=== PATIENT | female | born 1970 | race Caucasian/White ===

== ENCOUNTER 2021-06-13 18:12 | Emergency (ER) | payer OTHER, SELFPAY ==
--- NOTE | ~2021-06-13 | XR_ITS ---
XR foot RT min 3V 06/13/2021 19:02 Indication: Right foot pain after injury Procedure: 4 views right foot Comparison: No prior studies for comparison. Findings: There is an avulsion fracture of the calcaneus laterally. Mild soft tissue swelling. No oth er fracture is identified. Lisfranc joint intact. Impression: 1: Avulsion fracture distal lateral margin of the calcaneus. Reviewed, dictated and finalized at location A. Impression: 1: Avulsion fracture distal lateral margin of the calcaneus.
--- NOTE | ~2021-06-13 | XR_ITS ---
XR knee LT 3V 06/13/2021 19:02 INDICATION: Left ankle pain PROCEDURE: 5 views left ankle COMPARISON: No prior studies for comparison. FINDINGS: Fracture, dislocation or subluxation is not identified. There is moderate soft tissue swell ing lateral to the knee. No foreign bodies are identified. IMPRESSION: 1: No acute fracture. Reviewed, dictated and finalized at location A. IMPRESSION: 1: No acute fracture.
[2021-06-13 18:20] VITALS: BP 140/100; PULSE 102; RESP 20; TEMP 36.6; O2SAT 98
--- NOTE | 2021-06-13 18:31 | ED.LOWEXIN ---
HPI - Extremity Injury (Lower) General Chief Complaint: Extremity Injury, Lower Stated Complaint: Injuries from fall Time Seen by Provider: 06/13/21 18:32 Source: patient and RN notes reviewed Mode of arrival: ambulatory Limitations: no limitations History of Present Illness HPI Narrative: 51-year-old female presents with concern for right foot pain, left knee pain after she fell last night. Reports she rolled her ankle in a ditch, landing on her left knee. Reports abrasions to bilateral knees. Reports she is taken extra strength Tylenol and tramadol for pain that helps a small amount. She reports foot pain at rest, worsening pain with weightbearing. Reports little to no knee pain at rest, increasing pain with weightbearing. Denies erythema, warmth in the knee or ankle. Related Data Home Medications Medication Instructions Recorded Confirmed cevimeline 06/13/21 cholecalciferol (vitamin D3) 1,250 mcg PO DAILY 06/13/21 06/13/21 cyclobenzaprine 10 mg PO 06/13/21 dicyclomine 20 mg PO BID 06/13/21 06/13/21 famotidine 40 mg PO DAILY 06/13/21 06/13/21 ferrous sulfate [FeroSul] 325 mg PO DAILY 06/13/21 06/13/21 levothyroxine 06/13/21 oxybutynin chloride 06/13/21 pilocarpine HCl mg 06/13/21 pravastatin 06/13/21 sertraline mg 06/13/21 tramadol mg 06/13/21 Allergies Allergy/AdvReac Type Severity Reaction Status Date / Time adalimumab [From Humira] Allergy Hives Verified 06/13/21 18:43 clarithromycin Allergy Other Verified 06/13/21 18:43 clindamycin Allergy Other Verified 06/13/21 18:43 hydroxychloroquine Allergy Rash Verified 06/13/21 18:46 ibuprofen Allergy Unknown Verified 06/13/21 19:17 infliximab [From Remicade] Allergy Anaphylaxis Verified 06/13/21 18:46 levofloxacin Allergy Rash Verified 06/13/21 18:46 Sulfa (Sulfonamide Allergy Other Verified 06/13/21 18:46 Antibiotics) Review of Systems Review of Systems: CONSTITUTIONAL: Denies malaise, chills, sweats, or fever. CARDIOVASCULAR: Denies chest pain, palpitations, or edema. SKIN: Reports anterior knee abrasions MUSCULOSKELETAL: Reports right ankle pain, left knee swelling NEUROLOGIC: Denies numbness, weakness All systems reviewed & are unremarkable except as noted in HPI and below PMFSH Comments At time of signature, agree with nursing past medical, surgical, social and family history. There is no relevant family history pertinent to the presenting complaint Exam Narrative: GENERAL: Well-appearing, well-nourished, and in no acute distress. HEAD: Normocephalic, atraumatic. EYES: PERRLA, conjunctivae clear NECK: Supple. CHEST: Speaks in full sentences. No respiratory distress. HEART: Regular rate and rhythm. Normal and equal peripheral pulses. EXTREMITIES: Right foot has normal strength and sensation, limited range of motion. Mild edema, no erythema, warmth, ecchymosis. 5/5 strength with ankle and digit flexion and extension. Normal sensation with sensitivity to light touch and pain. Bilateral anterior tenderness. No open wounds, no skin tenting, no devitalized tissue or atrophy, no trophic changes, no obvious deformity, alignment normal, nearby joints and structures intact. Distal pulses palpable and equal bilaterally, skin warm, dry, pink. Capillary refill less than 3 seconds. Left knee has normal sensation, limited range of motion. Mild edema, no erythema, warmth, ecchymosis. 5/5 strength with knee flexion and extension. Normal sensation with sensitivity to light touch and pain. Anterior tenderness. No skin tenting, no devitalized tissue or atrophy, no trophic changes, no obvious deformity, alignment normal, nearby joints and structures intact. Distal pulses palpable and equal bilaterally, skin warm, dry, pink. Capillary refill less than 3 seconds. SKIN: Warm, dry, no rash. Scabbed abrasions noted to bilateral anterior knees without surrounding erythema, edema, induration NEURO: Alert and oriented x3. PSYCH: Normal mood and affect Course Cou
== END 2021-06-13 20:08 | disposition home or self-care (01) ==
PROVIDERS: Emergency Provider Nurse Practitioner; PCP Internal Medicine
DX: S92.034A Nondisplaced avulsion fracture of tuberosity of right calcaneus, initial encounter for closed fracture (principal); S80.212A Abrasion, left knee, initial encounter; S80.211A Abrasion, right knee, initial encounter; Z79.891 Long term (current) use of opiate analgesic; W19.XXXA Unspecified fall, initial encounter
CPT/HCPCS: 29515; 73562; 73630; 99214; G0463

== ENCOUNTER 2021-10-21 17:59 | Emergency (ER) | payer OTHER, SELFPAY ==
[2021-10-21 18:08] VITALS: BP 150/92; PULSE 98; RESP 18; TEMP 36.9; O2SAT 98
--- NOTE | 2021-10-21 18:18 | ED.ANIMALBIT ---
HPI - Animal Bite General Chief Complaint: Wound/Laceration Stated Complaint: Dog bite on left cheek Time Seen by Provider: 10/21/21 18:18 Source: patient Mode of arrival: ambulatory Limitations: no limitations History of Present Illness HPI narrative: Patient bitten on her left cheek by her dog yesterday afternoon.Patient repots that her dog is fully vaccinated and she has been cleansing the area with soap and water. MD complaint: animal bite Onset (ago): day(s) Animal: dog Description of animal: household pet and immunizations UTD Mechanism: bite and scratch Location: face Context: playing with animal Associated symptoms: none Related Data Home Medications Medication Instructions Recorded Confirmed cevimeline 30 mg PO DAILY 06/13/21 10/21/21 cholecalciferol (vitamin D3) 1,250 mcg PO DAILY 06/13/21 10/21/21 cyclobenzaprine 10 mg PO HS PRN 06/13/21 10/21/21 dicyclomine 20 mg PO BID 06/13/21 10/21/21 famotidine 40 mg PO DAILY 06/13/21 10/21/21 ferrous sulfate [FeroSul] 325 mg PO DAILY 06/13/21 10/21/21 levothyroxine 175 mcg PO DAILY 06/13/21 10/21/21 oxybutynin chloride 5 mg PO BID 06/13/21 10/21/21 pilocarpine HCl 7.5 mg PO DAILY 06/13/21 10/21/21 pravastatin 20 mg PO DAILY 06/13/21 10/21/21 sertraline 100 mg PO DAILY 06/13/21 10/21/21 tramadol 50 mg PO Q6-8H PRN 06/13/21 10/21/21 abatacept [Orencia] 250 mg SUBCUT WEEKLY 10/21/21 10/21/21 Allergies Allergy/AdvReac Type Severity Reaction Status Date / Time adalimumab [From Humira] Allergy Hives Verified 10/21/21 18:27 clarithromycin Allergy Other Verified 10/21/21 18:27 clindamycin Allergy Other Verified 10/21/21 18:27 hydroxychloroquine Allergy Rash Verified 10/21/21 18:27 ibuprofen Allergy Unknown Verified 10/21/21 18:27 infliximab [From Remicade] Allergy Anaphylaxis Verified 10/21/21 18:27 levofloxacin Allergy Rash Verified 10/21/21 18:27 Sulfa (Sulfonamide Allergy Other Verified 10/21/21 18:27 Antibiotics) Review of Systems Review of Systems: CONSTITUTIONAL: Denies fever, chills, or sweats. EYES: Denies visual changes, redness, or discharge. ENT: Denies rhinorrhea, congestion, sore throat, or otalgia. CARDIOVASCULAR: Denies chest pain, palpitations, or edema. RESPIRATORY: Denies cough or dyspnea. GASTROINTESTINAL: Denies abdominal pain, nausea, vomiting, or diarrhea. GENITOURINARY: Denies dysuria or hematuria. SKIN: Denies rash or itching. dog bite to left cheek MUSCULOSKELETAL: Denies back pain, joint pain, or myalgia. NEUROLOGIC: Denies headache, numbness, or weakness. PSYCHIATRIC: Denies anxiety or depression. Allergic/Immunologic: Comments: At time of signature, agree with nursing past medical, surgical, social and family history. There is no relevant family history pertinent to the presenting complaint Exam Narrative: GENERAL: Well-appearing, well-nourished, and in no acute distress. HEAD: Normocephalic, atraumatic. EYES: PERRLA and EOMI. ENT: Nares clear, no rhinorrhea or epistaxis. Mucous membranes moist. NECK: Supple. CHEST: Clear to auscultation. No respiratory distress. HEART: Regular rate and rhythm. No murmur heard. Normal peripheral pulses. ABDOMEN: Soft, nontender, nondistended, normal active bowel sounds. EXTREMITIES: Normal range of motion. No edema. SKIN: Warm, dry, no rash. 2 superficial puncture wounds to left cheek no drainage no redness not tender to touch NEURO: No focal deficits. Alert and oriented x3. [place] Coma Scale Eye Opening: Spontaneous 4 [place] Coma Scale Motor: Obeys Commands 6 [place] Coma Scale Verbal: Oriented 5 [place] Coma Scale Total 15 Course Course Level of Care: Express Care Visit Vital Signs Vital signs: Discussed with patient transfer for plastic surgery referral. Patient declined referral to plastic surgery states would like placed on antibiotic and will follow-up with primary care provider as needed critical dx considered and discussed with pt. Educated patient on red flag s/s and to go to ED i
== END 2021-10-21 18:40 | disposition home or self-care (01) ==
PROVIDERS: Emergency Provider Nurse Practitioner Family; PCP Internal Medicine
DX: S01.432A Puncture wound without foreign body of left cheek and temporomandibular area, initial encounter (principal); W54.0XXA Bitten by dog, initial encounter; E78.00 Pure hypercholesterolemia, unspecified; I10 Essential (primary) hypertension; K21.9 Gastro-esophageal reflux disease without esophagitis; M06.9 Rheumatoid arthritis, unspecified; E11.9 Type 2 diabetes mellitus without complications; E03.9 Hypothyroidism, unspecified; M35.00 Sjogren syndrome, unspecified; F32.9 Major depressive disorder, single episode, unspecified
CPT/HCPCS: 99213; G0463

== ENCOUNTER 2022-01-26 13:08 | Emergency (ER) | payer OTHER, SELFPAY ==
--- NOTE | 2022-01-26 13:17 | ED.URI ---
HPI - URI/Sore Throat General Chief Complaint: Upper Respiratory Infection Stated Complaint: upper resperatory Time Seen by Provider: 01/26/22 13:25 Source: patient and RN notes reviewed Mode of arrival: ambulatory Limitations: no limitations History of Present Illness HPI Narrative: 51-year-old female with history of diabetes presents with concern for cough, sore throat. She denies any [id number] intervention. She reports persistent cough. Denies nasal congestion, rhinorrhea, fever, body aches, chills, sweats. She reports her temperature was 98.9 at the highest. MD elicited complaint: cough and sore throat Related Data Home Medications Medication Instructions Recorded Confirmed cevimeline 30 mg PO DAILY 06/13/21 01/26/22 cholecalciferol (vitamin D3) 1,250 mcg PO DAILY 06/13/21 01/26/22 cyclobenzaprine 10 mg PO HS PRN 06/13/21 01/26/22 dicyclomine 20 mg PO BID 06/13/21 01/26/22 famotidine 40 mg PO DAILY 06/13/21 01/26/22 ferrous sulfate [FeroSul] 325 mg PO DAILY 06/13/21 01/26/22 levothyroxine 175 mcg PO DAILY 06/13/21 01/26/22 oxybutynin chloride 5 mg PO BID 06/13/21 01/26/22 pilocarpine HCl 7.5 mg PO DAILY 06/13/21 01/26/22 pravastatin 20 mg PO DAILY 06/13/21 01/26/22 sertraline 100 mg PO DAILY 06/13/21 01/26/22 tramadol 50 mg PO Q6-8H PRN 06/13/21 01/26/22 abatacept [Orencia] 250 mg SUBCUT WEEKLY 10/21/21 01/26/22 prednisone 2.5 mg PO TID 01/26/22 01/26/22 Allergies Allergy/AdvReac Type Severity Reaction Status Date / Time adalimumab [From Humira] Allergy Hives Verified 01/26/22 13:27 clarithromycin Allergy Other Verified 01/26/22 13:27 clindamycin Allergy Other Verified 01/26/22 13:27 hydroxychloroquine Allergy Rash Verified 01/26/22 13:27 ibuprofen Allergy Unknown Verified 01/26/22 13:27 infliximab [From Remicade] Allergy Anaphylaxis Verified 01/26/22 13:27 levofloxacin Allergy Rash Verified 01/26/22 13:27 Sulfa (Sulfonamide Allergy Other Verified 01/26/22 13:27 Antibiotics) Review of Systems Review of Systems: CONSTITUTIONAL: Denies malaise, chills, sweats, or fever. Reports fatigue EYES: Denies visual changes, redness, or discharge. ENT: Denies rhinorrhea, congestion, sinus pain, otalgia. Reports sore throat. CARDIOVASCULAR: Denies chest pain, palpitations, or edema. RESPIRATORY: Reports cough. Denies dyspnea. GASTROINTESTINAL: Denies abdominal pain, nausea, vomiting, diarrhea SKIN: Denies rash or itching. MUSCULOSKELETAL: Denies myalgia. NEUROLOGIC: Denies headache. All systems reviewed & are unremarkable except as noted in HPI and below PMFSH Comments At time of signature, agree with nursing past medical, surgical, social and family history. There is no relevant family history pertinent to the presenting complaint Exam Narrative: GENERAL: Well-appearing, well-nourished, and in no acute distress. HEAD: Normocephalic EYES: PERRLA, conjunctivae clear ENT: Nares clear, clear discharge. Mucous membranes moist. TM pearly epps with sharp light reflex bilaterally; no tragal tenderness. Oropharynx erythematous without lesions. Tonsils not enlarged and without exudate, no drooling, no hoarseness, no trismus, uvula midline. NECK: Supple. No lymphadenopathy CHEST: Scattered wheeze throughout, otherwise clear to auscultation, breath sounds equal. No rhonchi, rales, or stridor. No respiratory distress, speaks in full sentences. Cough noted HEART: Regular rate and rhythm. No murmur heard. SKIN: Warm, dry, no rash. NEURO: Alert and oriented x3. PSYCH: Normal mood and affect Course Course Emergency Course: Patient is aware of diagnosis, understands and agrees to treatment plan. Anticipatory guidance given. Patient agrees to follow-up as directed and is aware of reasons to seek care at the emergency department. Portions of this record may have been created with voice recognition software Level of Care: Express Care Visit Vital Signs Vital signs: Reviewed. MDM - URI/Sore Throat MDM Narrative Med
[2022-01-26 13:20] VITALS: BP 145/80; PULSE 108; RESP 16; TEMP 36.4; O2SAT 100
== END 2022-01-26 13:46 | disposition home or self-care (01) ==
PROVIDERS: Emergency Provider Nurse Practitioner; PCP Internal Medicine
DX: J40 Bronchitis, not specified as acute or chronic (principal); E78.00 Pure hypercholesterolemia, unspecified; I10 Essential (primary) hypertension; K21.9 Gastro-esophageal reflux disease without esophagitis; M06.9 Rheumatoid arthritis, unspecified; E11.9 Type 2 diabetes mellitus without complications; E03.9 Hypothyroidism, unspecified; M35.00 Sjogren syndrome, unspecified; F32.A Depression, unspecified
CPT/HCPCS: 87804; 99213; G0463

== ENCOUNTER 2024-10-25 18:11 | Emergency (ER) | payer OTHER, SELFPAY ==
--- NOTE | ~2024-10-25 | XR_ITS ---
CHEST RADIOGRAPH, PA AND LATERAL CLINICAL HISTORY: bronchitis 2 weeks ago, COUGH, GEN CHEST/BACK PAIN . COMPARISON: None available TECHNIQUE: PA and lateral views of the chest. FINDINGS The cardiomediastinal silhouette is unremarkable. The lungs are clear. Visualized osseous structures and soft tissues are unremarkable. IMPRESSION: No focal infiltrate or effusion. Reviewed, dictated and finalized at location A. [employer]
--- OUTSIDE RECORDS SUMMARY | 2024-10-25 18:15 | XMS_ITS ---
Author Organization [facility] mirna Address [address] [address] [place] [address] Care Team Providers Care Hood Fitter Name Role Phone Zuhair Castrejon MD Primary Care Provider Lisset Longoria Unavailable [phone] Lisset Carty MD Unavailable Unavailable Allergies Allergen (clinical drug ingredient) Drug/Non Drug Allergy documented on EMR Reaction Allergy Type Onset Date Status aspirin Aspirin Unknown Drug Allergy 03/04/2018 Active clarithromycin Clarithromycin Unknown Drug Allergy 018 Active Humira Unknown Drug Allergy 07/03/2019 Active ibuprofen Ibuprofen Unknown Drug Allergy 03/04/2018 Active Levaquin Unknown Drug Allergy 03/04/2018 Active hydroxychloroquine Plaquenil Unknown Drug Allergy 03/04/20 18 Active infliximab Remicade Unknown Drug Allergy 03/26/2020 Activ e clindamycin Clindamycin Unknown Drug Allergy 03/04/2018 Ac tive REASON FOR VISIT infusion pt, RA, SS, lupus, PCP Zuhair Castrejon MD Medications Medication SIG (Take, Route, Frequency, Duration) Notes Start Date End Date Status traMADol HCl 50 MG 1 Orally every 6 hrs for 30 days 08/14/2024 09/13/2024 Active predniSONE 2.5 MG TAKE 3 TABLETS(7.5 MG) BY MOUTH DAILY for 30 Active Vitamin D (Ergocalciferol) 1.25 MG (89474 UT) TAKE 1 CAPSULE BY MOUTH WEEKLY for 28 Active Sertraline HCl 100 MG TAKE 1 TABLET(100 MG) BY MOUTH EVERY DAY for 30 Active Lisinopril 20 MG TAKE 2 TABLETS(40 MG) BY MOUTH ONCE DAILY for 90 Active Pilocarpine HCl 7.5 MG 1 Three times a day for 90 days Active Cevimeline HCl 30 MG 1 capsule Orally Three times a day for 30 days 01/30/2024 Active Cyclobenzaprine HCl 10 MG 1 Oral Once a day for 30 days Active Famotidine 40 MG take 1 tablet (40 mg) by oral route once daily at bedtime Oral 1 Active CEVIMELINE 30MG CAPSULES 30 mg TAKE 1 CAPSULE(30 MG) BY MOUTH THREE TIMES DAILY *Reorder from [employer] for eRx and Interaction Alerts* 04/21/2023 Active metFORMIN HCl 1000 MG take 1 tablet (1,000 mg) by oral route 2 times per day with morning and evening meals Oral 2 Active Orencia - monthly - *Pick strength-form from [employer] for eRX* Active Nurtec 75 MG prn Oral Active Vitamin D3 1000 UNIT take 1 tablet weekly Oral Active Dicyclomine HCl 20 MG take 1 tablet (20 mg) by oral route 3 times per day Oral 3 Active Phentermine HCl 37.5 MG take 1 tablet (37.5 mg) by oral route once daily before breakfast Oral 1 Active FERROUS SULFATE 325MG (5GR) TABS 325 mg (65 mg iron) TAKE 1 TABLET(325 MG) BY MOUTH TWICE DAILY *Reorder from [employer] for eRx and Interaction Alerts* 06/09/2023 Active Emgality 120 MG/ML inject 1 milliliter (120 mg) by subcutaneous route once a month in the abdomen, thigh, outer upper arm, or buttocks Subcutaneous Active Levothyroxine Sodium 200 MCG take 1 tablet (200 mcg) by oral route once daily Oral 1 Active Levothyroxine Sodium 25 MCG take 1 tablet (25 mcg) by oral route once daily Oral 1 Active ZyrTEC Allergy 10 MG take 1 capsule by oral route once Oral 1 Active Problems Problem Type SNOMED Code ICD Code Onset Dates Problem Status W/U Status Risk Notes Problem Primary Sjogren's syndrome (196972073) Primary Sjogren's syndrome (M35.00) Active confirmed Problem Lupus (422995512) Lupus (M32.9) Active confirmed Encounters Encounter Location Date Provider Diagnosis [facility] [address] [facility] [place] [address] 08/26/2024 Lisset Du Other rheumatoid arthritis with rheumatoid factor of multiple sites M05.89 ; Primary Sjogren's syndrome M35.00 ; Lupus M32.9 ; High risk medication use Z79.899 and Screening for osteoporosis Z13.820 Assessments Encounter Date Diagnosis (ICD Code) Assessment Notes Treatment Notes Treatment Clinical Notes Section Notes 08/26/2024 Other rheumatoid arthritis with rheumatoid factor of multiple sites (ICD-10 - M05.89) mildly symptomatic, , orencia helping, will continue, decrease prednisone to 5mg/day after today's ionfusion 08/26/2024 Primary Sjogren's syndrome (ICD-10 - M35.00) mildly symptomatic, , orencia helping, will continue, decrease prednisone to 5mg/day after today's ionfusion 08/26/2024 Lupus (ICD-10 - M32.9) mildly symptomatic, , orencia helping, will continue, decrease prednisone to 5mg/day after today's ionfusion 08/26/2024 High risk medication use (ICD-10 - Z79.899) mildly symptomatic, , orencia helping, will continue, decrease prednisone to 5mg/day after today's ionfusion 08/26/2024 Screening for osteoporosis (ICD-10 - Z13.820) mildly symptomatic, , orencia helping, will continue, decrease prednisone to 5mg/day after today's ionfusion Plan Of Treatment Next Appt Details Provider Name:Lisset Carty, 10/29 08:00:00 AM, [address] [facility], [address], [address], Progress Notes * Jerri PEÑA ADOB:[birth year] (54 yo F)Acc No.[id number]:08/26/2024 Progress Notes Patient:?CHEMO Jerri A Provider:?LISSET CARTY MD :1970???Age:54 Y???Sex:Female D ate:08/26/2024 Address:[address] [place], [place] [id number] Pcp:Zuhair Castrejon MD Subjective: * Chief Complaints: * ???Infusion ptRA, SS, lupusP CP Zuhair Castrejon MD * HPI: ???General Follow up:? Sjogren's disease/RA: on orencia infusion, on prednisone 7.5mg/day, orencia helping and lasts for about 3 weeks, fingers, ankles and toes ache today, no joint swelling, am stiffness: a few minutes, does not like tylenol with codeine, too strong allergic to remicade, allergic to plaquenil, cannot prescribe MTX, imuran, arava, etc due to leukopenia and elevated liver enzymes, allergic to aspirin and ibuprofen, developed allergic reaction after 2nd humira injection in May 2019. uses artificial tears/gel, failed salagen, on evoxac, on amitriptyline for headaches? skin biopsy did not show lupus. hip MRIs: moderate to severe arthritic changes with synovitis and chondrosis, labral tear and cysts, herminio hip dysplasia, saw Dr. Ward, s/p R hip replacement RF 43, CCP (-), CRP 27.23, ESR 52, BRENDA >1:1280 (SSA/Ro), SSA 133, SSB 62, WBC 2.6, ALC 0.5, lupus anti-coagulant positive x 3, +dry eyes and dry mouth ROS: no oral ulcers, +malar flush, no photosensitivity, +dry eyes and dry mouth, no Raynaud's, no hair loss. * ROS:?General / Constitutional:?Patient denies?fevers, chills.?Patient complains of?fatigue.?Musculoskeletal:?Patient complains of?see HPI.?Skin:?Patient denies?rash.? * Medical History:? * Surgical History:? * Hospitalization/Major Diagno stic Procedure:? * Social History:?Migrated Social History:?Migrated Social History: :: 3 Children , Exercise :: Active but no formal exercise , Marital Status :: , Occupation :: employed :: note : - [employer] 07/22/2018 , Substance Use :: Alcohol :: Never :: note : Use status used: Never , Substance Use :: Tobacco :: Former :: note : quit 1999. * Medications:?TakingZyrTEC Al lergy 10 MG Capsule take 1 capsule by oral route once Oral 1 Levothyroxine Sodium 25 MCG Tablet take 1 tablet (25 mcg) by oral route once daily Oral 1 Levothyroxine Sodium 200 MCG Tablet take 1 tablet (200 mcg) by oral route once daily Oral 1 Emgality 120 MG/ML Solution Auto-injector inject 1 milliliter (120 mg) by subcutaneous route once a month in the abdomen, thigh, outer upper arm, or buttocks Subcutaneous FERROUS SULFATE 325MG (5GR) TABS 325 mg (65 mg iron) TAKE 1 TABLET(325 MG) BY MOUTH TWICE DAILY , Notes to Pharmacist: *Reorder from [facility] for eRx and Interaction Alerts*Phentermine HCl 37.5 MG Tablet take 1 tablet (37.5 mg) by oral route once daily before breakfast Oral 1 Dicyclomine HCl 20 MG Tablet take 1 tablet (20 mg) by oral route 3 times per day Oral 3 Vitamin D3 1000 UNIT Capsule take 1 tablet weekly Oral Nurtec 75 MG Tablet Disintegrating prn Oral Orencia - monthly - , Notes to Pharmacist: *Pick strength-form from [facility] for eRX*metFORMIN HCl 1000 MG Tablet take 1 tablet (1,000 mg) by oral route 2 times per day with morning and evening meals Oral 2 CEVIMELINE 30MG CAPSULES 30 mg TAKE 1 CAPSULE(30 MG) BY MOUTH THREE TIMES DAILY , Notes to Pharmacist: *Reorder from [facility] for eRx and Interaction Alerts*Famotidine 40 MG Tablet take 1 tablet (40 mg) by oral route once daily at bedtime Oral 1 Cyclobenzaprine HCl 10 MG Tablet 1 Oral Once a day Cevimeline HCl 30 MG Capsule 1 capsule Orally Three times a day Pilocarpine HCl 7.5 MG Tablet 1 Three times a day Lisinopril 20 MG Tablet TAKE 2 TABLETS(40 MG) BY MOUTH ONCE DAILY Sertraline HCl 100 MG Tablet TAKE 1 TABLET(100 MG) BY MOUTH EVERY DAY Vitamin D (Ergocalciferol) 1.25 MG (23354 UT) Capsule TAKE 1 CAPSULE BY MOUTH WEEKLY predniSONE 2.5 MG Tablet TAKE 3 TABLETS(7.5 MG) BY MOUTH DAILY traMADol HCl 50 MG Tablet 1 Orally every 6 hrs , stop date 09/13/2024Taking ZyrTEC Allergy 10 MG Capsule take 1 capsule by oral route once Oral 1 Taking Levothyroxine Sodium 25 MCG Tablet take 1 tablet (25 mcg) by oral route once daily Oral 1 Taking Levothyroxine Sodium 200 MCG Tablet take 1 tablet (200 mcg) by oral route once daily Oral 1 Taking Emgality 120 MG/ML Solution Auto-injector inject 1 milliliter (120 mg) by subcutaneous route once a month in the abdomen, thigh, outer upper arm, or buttocks Subcutaneous Taking FERROUS SULFATE 325MG (5GR) TABS 325 mg (65 mg iron) TAKE 1 TABLET(325 MG) BY MOUTH TWICE DAILY , Notes to Pharmacist: *Reorder from [facility] for eRx and Interaction Alerts*Taking Phentermine HCl 37.5 MG Tablet take 1 tablet (37.5 mg) by oral route once daily before breakfast Oral 1 Taking Dicyclomine HCl 20 MG Tablet take 1 tablet (20 mg) by oral route 3 times per day Oral 3 Taking Vitamin D3 1000 UNIT Capsule take 1 tablet weekly Oral Taking Nurtec 75 MG Tablet Disintegrating prn Oral Taking Orencia - monthly - , Notes to Pharmacist: *Pick strength-form from [facility] for eRX*Taking metFORMIN HCl 1000 MG Tablet take 1 tablet (1,000 mg) by oral route 2 times per day with morning and evening meals Oral 2 Taking CEVIMELINE 30MG CAPSULES 30 mg TAKE 1 CAPSULE(30 MG) BY MOUTH THREE TIMES DAILY , Notes to Pharmacist: *Reorder from [facility] for eRx and Interaction Alerts*Taking Famotidine 40 MG Tablet take 1 tablet (40 mg) by oral route once daily at bedtime Oral 1 Taking Cyclobenzaprine HCl 10 MG Tablet 1 Oral Once a day Taking Cevimeline HCl 30 MG Capsule 1 capsule Orally Three times a day Taking Pilocarpine HCl 7.5 MG Tablet 1 Three times a day Taking Lisinopril 20 MG Tablet TAKE 2 TABLETS(40 MG) BY MOUTH ONCE DAILY Taking Sertraline HCl 100 MG Tablet TAKE 1 TABLET(100 MG) BY MOUTH EVERY DAY Taking Vitamin D (Ergocalciferol) 1.25 MG (43598 UT) Capsule TAKE 1 CAPSULE BY MOUTH WEEKLY Taking predniSONE 2.5 MG Tablet TAKE 3 TABLETS(7.5 MG) BY MOUTH DAILY Taking traMADol HCl 50 MG Tablet 1 Orally every 6 hrs , stop date 09/13/2024 * Allergies:?Humira: Allergy - Onset Date 07/03/2019Aspirin: Allergy - Onset Date 03/04/2018Clindamycin: Allergy - Onset Date 03/04/2018Ibuprofen: Allergy - Onset Date 03/04/2018Plaquenil: Allergy - Onset Date 03/04/2018Levaquin: Allergy - Onset Date 03/04/2018Remicade: Allergy - Onset Date 03/26/2020Clarithromycin: Allergy - Onset Date 03/04/2018no[Allergies Verified] Objective: * Vitals:? * Examination: ???General Examination: ?General appearance:?alert, well-nourished and in no acute distress.?Head:?normocephalic, atraumatic.?Eyes:?normal.?Skin:?no rash.?Lungs:?respiratory effort normal.?Neurology: ?Speech:?normal.?Psychiatry: ?Affect / mood:?appropriate.?Rheumatology: ???herminio PIPs mildly tender, no swelling, herminio ankles and MTPs tender, no swelling. Assessment: * Assessment: 1.?Other rheumatoid arthriti s with rheumatoid factor of multiple sites - M05.89 (Primary)???2.?Primary Sjogren's syndrome - M35.00???3.?Lupus - M32.9???4.?High risk medication use - Z79.899???5.?Screening for osteoporosis - Z13.820??? mildly symptomatic, , syednci a helping, will continue, decrease prednisone to 5mg/day after today's ionfusion Plan: * Treatment: * Procedure Codes:? * Billing Information: * Visit Code:? 06298 Office Visit, Est Pt., Level 4. Modifiers: 25 * Procedure Codes:? * ER HAND Sign off status: Completed true * Provider:?LISSET CARTY MD Date:?08/26/2024 Generated for Laurie rdz/Mickey/Christelle on:?10/25/2024 06:15 PM [facility] History and Physical Notes * HPI (History of Present Illness) Category Sub-Category Detail Notes Category Not es General Follow up Sjogren's disease/RA: on orencia infusion, on prednisone 7.5mg/day, orencia helping and lasts for about 3 weeks, fingers, ankles and toes ache today, no joint swelling, am stiffness: a few minutes, does not like tylenol with codeine, too strong allergic to remicade, allergic to plaquenil, cannot prescribe MTX, imuran, arava, etc due to leukopenia and elevated liver enzymes, allergic to aspirin and ibuprofen, developed allergic reaction after 2nd humira injection in May 2019. uses artificial tears/gel, failed salagen, on evoxac, on amitriptyline for headaches skin biopsy did not show lupus. hip MRIs: moderate to severe arthritic changes with synovitis and chondrosis, labral tear and cysts, herminio hip dysplasia, saw Dr. Ward, s/p R hip replacement RF 43, CCP (-), CRP 27.23, ESR 52, BRENDA >1:1280 (SSA/Ro), SSA 133, SSB 62, WBC 2.6, ALC 0.5, lupus anti-coagulant positive x 3, +dry eyes and dry mouth ROS: no oral ulcers, +malar flush, no photosensitivity, +dry eyes and dry mouth, no Raynaud's, no hair loss Examination Category Sub-Category Detail Notes Category Not es Rheumatology herminio PIPs mildly tender, no swelling, herminio ankles and MTPs tender, no swelling Neurology Speech: normal Psychiatry Affect / mood: appropriate General Examination General appearance: alert, w ell-nourished and in no acute distress Head: normocephalic, atrau matic Eyes: normal Lungs: respiratory effort n ormal Skin: no rash
--- OUTSIDE RECORDS SUMMARY | 2024-10-25 18:15 | XMS_ITS | Data Portability ---
Author Organization [facility] Address [address] [place] [address] Care Team Providers Care Spinneret Cleaner Name Role Phone MAHAMED CUMMINS Stage Hand KENNETH CARTY Edging Supervisor [facility] Neurologist [facility] Sleep Medicine RICHY BEST Practice Nurse [phone] ADEN MEDRANO Beck Tender GIO AUSTIN Primary Care Provider GALINA YOUNGBLOOD Urologist MAHAMED CUMMINS Educational Aid Assessment Encounter Date Assessment Date Assessment LastModified by Organization Details LastModified Time 02/29/2024 02/29/2024 Seismology Teacher exam relatively benign. Mammogram due, will call if problems. Urology follow up sounds challenging Not available 02/29/2024 16:47:04 Plan of Treatment Reminders Order Date Submit Date Provider Last Modified By Organization Details Last Modified Time Details Appointments NEW PATIEN T 30 2024 02:30P Abdi Mcgrath MD Not available Not available Not available Lab lipid panel, serum 2022 023 [facility] [address], [address], [place], [address], 12/31/2022 06:15:30 CMP, serum or plasma 2022 023 [facility], [address], [address], [place], [address], 12/31/2022 06:15:31 CBC w/ auto diff 2022 023 [facility], [address] [facility], [place], [address], 12/31/2022 06:15:32 TSH, ultra- sensit daron, serum 2022 023 [facility], [address] [facility], [address], [place], [address], 12/31/2022 10:10:36 HbA1c (hemog lobin A1c), blood 2022 023 [facility], [address] [facility] [address], [place], [address], 12/31/2022 10:10:35 microa lbumin /creat inine, mass ratio, urine 2022 023 [facility], [address] [facility] [address], [address], [place], [address], 12/31/2022 10:10:34 vitami n D, 25-hyd sinai, total, serum 2022 023 [facility], [address] [facility] [address], [address], [place], [address], 12/31/2022 10:10:36 Referral gastro entero logist referr al 2022 023 [place], [address] [facility], [place], [address], 08/07/2023 09:53:45 gastro entero logist referr al 2022 023 Bhavna Canseco MD, [address] [facility] [address], [place], [address], 06/27/2023 10:42:21 Procedures None record ed. Surgeries None record ed. Imaging MAMMO, screen ing, digita l, bilate ral 2023 024 [facility], [address] [facility], [place], [address], 04/08/2024 14:50:58 Medication Orders doxycy adkins monohy drate 100 mg capsul e 2022 023 [facility][id number], [address], [place], [id number], 05/09/2023 10:39:32 Medrol (Mg) 4 mg tablet s in a dose pack 2022 023 [facility] #[id number], [address], [place], [id number], 05/10/2023 09:44:12 valacy clovir 1 gram tablet 2022 023 [facility] [employer] [facility] #97458, [address], [place], [id number], 09/13/2023 09:48:44 capsai hina 0.1 % topica l cream 2022 023 [facility] #18221, [address], [place], [id number], 09/13/2023 09:48:43 Augmen tin 875 mg-125 mg tablet 2023 024 [facility] [employer] [facility] #26391, [address], [place], [id number], 10/09/2023 16:20:22 benzon atate 100 mg capsul e 2023 024 [facility]12203, [address], [place], [id number], 10/09/2023 16:41:06 Patient TargetsNo targets recorded. Patient Instructions Encounter Date Encounter Id Patient Instructions Last Modified By Organization Details Last Modified Time 12/30/2022 [id number] A healthy lifestyle: care instructions ssuthan Not available 12/30/2022 13:13:49 sleep apnea: car e instructions ssuthan Not available 12/30/2022 10:27:24 learning about high blood pressure ssuthan Not available 12/30/2022 10:27:24 Stress Incontinence: Care Instructions ssuthan Not available 12/30/2022 10:27:24 cellulitis: care instructions ssuthan Not available 12/30/2022 10:27:23 sjogren's syndrome: care instructions ssuthan Not available 12/30/2022 10:27:24 irritable bowel syndrome: care instructions ssuthan Not available 12/30/2022 10:27:23 tennis elbow: exercises ssuthan Not available 12/30/2022 10:28:30 type 2 diabetes: care instructions ssuthan Not available 12/30/2022 10:27:24 hypothyroidism: care instructions ssuthan Not available 12/30/2022 10:27:24 05/10/2023 [id number] A healthy lifestyle: care instructions ssuthan Not available 05/10/2023 09:41:10 sleep apnea: car e instructions ssuthan Not available 05/10/2023 09:41:10 Stress Incontinence: Care Instructions ssuthan Not available 05/10/2023 09:41:10 learning about high blood pressure ssuthan Not available 05/10/2023 09:41:10 type 2 diabetes: care instructions ssuthan Not available 05/10/2023 09:41:10 hypothyroidism: care instructions ssuthan Not available 05/10/2023 09:41:10 skin lesions: care instructions ssuthan Not available 05/10/2023 09:41:10 sjogren's syndrome: care instructions ssuthan Not available 05/10/2023 09:41:10 09/13/2023 [id number] influenza (flu) vaccine: care instructions ssuthan Not available 09/13/2023 09:48:35 A healthy lifestyle: care instructions ssuthan Not available 09/13/2023 09:48:35 shingles: care instructions ssuthan Not available 09/13/2023 09:48:35 sleep apnea: car e instructions ssuthan Not available 09/13/2023 09:48:35 learning about high blood pressure ssuthan Not available 09/13/2023 09:48:35 type 2 diabetes: care instructions ssuthan Not available 09/13/2023 09:48:35 Stress Incontinence: Care Instructions ssuthan Not available 09/13/2023 09:48:34 hypothyroidism: care instructions ssuthan Not available 09/13/2023 09:48:35 sjogren's syndrome: care instructions ssuthan Not available 09/13/2023 09:48:35 10/09/2023 [id number] upper respirator y infection (cold): care instructions ssuthan Not available 10/09/2023 16:20:04 02/29/2024 [id number] learning about breast cancer screening Not available 02/29/2024 16:35:07 Reason for Referral Beck Tender Referral for Screening for malignant neoplasm of colon Referring Physician: Gio Austin, Internal Medicine, Encounter Date: 12/30/2022 Beck Tender Referral for Screening for malignant neoplasm of colon Referring Physician: Gio Austin, Internal Medicine, Encounter Date: 05/10/2023 Results Created Date Observation Date Name Description Value Unit Range Abnormal Flag Note LastModifiedBy Organization Detail LastModifiedTime 12/31/1912/30/2022 LIPID PANEL cholesterol, total 166.5 mg/dL 140.0- 200.0 Not Available [facility] Department [address] [place], [address], 12/31/2022 06:15:30 12/31/1912/30/2022 LIPID PANEL triglyceride s 107 mg/dL <=150 Not Available [facility] Department [address] [place], [address], 12/31/2022 06:15:30 12/31/19 23 12/30/2022 LIPID PANEL HDL cholesterol 42.9 mg/dL 40.0-1 00.0 Not Available [facility] Department [address] [place] [address], [address], 12/31/2022 06:15:30 12/31/19 23 12/30/2022 LIPID PANEL VLDL cholesterol eugenie 21.40 mg/dL 5.00-4 0.00 Not Available [facility] Department [address] [place] [address], [address], 12/31/2022 06:15:30 12/31/19 23 12/30/2022 LIPID PANEL LDL chol calc ([facility]) 104.[address] [facility] Department [address] [place] [address], [address], 12/31/2022 06:15:30 12/31/19 23 12/30/2022 COMP. METAB OLIC PANEL (14) glucose 90 mg/dL 65-99 ANION GP 18.0 mmol/ L N OSMOL 280.0 mOsM/ L N REFER ENCE RANGE : 275.0 -301. 0 Not Available [facility] Department [address] [place] [address], [address], 12/31/2022 06:15:31 12/31/19 23 12/30/2022 COMP. METAB OLIC PANEL (14) BUN 11 mg/dL 8-26 Not Available [facility] Department [address] [place] [address], [address], 12/31/2022 06:15:31 12/31/19 23 12/30/2022 COMP. METAB OLIC PANEL (14) creatinine 0.64 mg/dL 0.50-1 .40 Not Available [facility] Department [address] [place], [address], 12/31/2022 06:15:31 12/31/19 23 12/30/2022 COMP. METAB OLIC PANEL (14) eGFR 107 mL/mi n/1.7 3 >=60 Not Available [facility] Department [address] [place], [address], 12/31/2022 06:15:31 12/31/19 23 12/30/2022 COMP. METAB OLIC PANEL (14) BUN/creatini ne ratio 17.3 Not Available [facility] Department [address] [place] [address], [address], 12/31/2022 06:15:31 12/31/19 23 12/30/2022 COMP. METAB OLIC PANEL (14) sodium 141.0 mmol/ L 136.0- 144.0 Not Available [facility] Department [address] [place] [address], [address], 12/31/2022 06:15:31 12/31/19 23 12/30/2022 COMP. METAB OLIC PANEL (14) potassium 4.1 mmol/ L 3.5-5. 3 Not Available [facility] Department [address] [place], [address], 12/31/2022 06:15:31 12/31/19 23 12/30/2022 COMP. METAB OLIC PANEL (14) chloride 104 mmol/ l 101-11 1 Not Available [facility] Department [address] [place] [address], [address], 12/31/2022 06:15:31 12/31/19 23 12/30/2022 COMP. METAB OLIC PANEL (14) carbon dioxide, total 23.5 mmol/ L 21.0-3 2.0 Not Available [facility] Department [address] [place], [address], 12/31/2022 06:15:31 12/31/19 23 12/30/2022 COMP. METAB OLIC PANEL (14) calcium 9.6 mg/dL 8.2-10 .0 Not Available [facility] Department [address] [place] [address], [address], 12/31/2022 06:15:31 12/31/19 23 12/30/2022 COMP. METAB OLIC PANEL (14) protein, total 7.7 g/dL 6.7-8. 2 Not Available [facility] Department [address] [place], [address], 12/31/2022 06:15:31 12/31/19 23 12/30/2022 COMP. METAB OLIC PANEL (14) albumin 4.2 g/dL 3.5-5. 5 Not Available [facility] Department [address] [place], [address], 12/31/2022 06:15:31 12/31/19 23 12/30/2022 COMP. METAB OLIC PANEL (14) globulin, total 3.5 g/dL 1.5-4. 5 Not Available [facility] Department [address] [place] [address], [address], 12/31/2022 06:15:31 12/31/19 23 12/30/2022 COMP. METAB OLIC PANEL (14) A/G ratio 1.2 Not Available [facility] Department [address] [place], [address], 12/31/2022 06:15:31 12/31/19 23 12/30/2022 COMP. METAB OLIC PANEL (14) bilirubin, total 0.2 mg/dL 0.0-1. 2 Not Available [facility] Department [address] [place], [address], 12/31/2022 06:15:31 12/31/19 23 12/30/2022 COMP. METAB OLIC PANEL (14) alkaline phosphatase 102.1 IU/L 42.0-1 21.0 Not Available [facility] Department [address] [place], [address], 12/31/2022 06:15:31 12/31/19 23 12/30/2022 COMP. METAB OLIC PANEL (14) AST (SGOT) 14.8 U/L 10.0-4 2.0 Not Available [facility] Department [address] [place], [address], 12/31/2022 06:15:31 12/31/19 23 12/30/2022 COMP. METAB OLIC PANEL (14) ALT (SGPT) 18.4 U/L 10.0-6 0.0 Not Available [facility] Department [address] [place], [address], 12/31/2022 06:15:31 12/31/19 23 12/30/2022 CBC WITH DIFFE RENTI AL/PL ATELE T WBC 3.5 K/uL 3.4-10 .8 Not Available [facility] Department [address] [place], [address], 12/31/2022 06:15:32 12/31/19 23 12/30/2022 CBC WITH DIFFE RENTI AL/PL ATELE T RBC 5.0 M/uL 4.2-5. 4 Not Available [facility] Department [address] [place], [address], 12/31/2022 06:15:32 12/31/19 23 12/30/2022 CBC WITH DIFFE RENTI AL/PL ATELE T hemoglobin 13.0 g/dL 11.5-1 5.5 Not Available [facility] Department [address] [place], [address], 12/31/2022 06:15:32 12/31/19 23 12/30/2022 CBC WITH DIFFE RENTI AL/PL ATELE T hematocrit 42.7 % 36.0-4 8.0 Not Available [facility] Department [address] [place], [address], 12/31/2022 06:15:32 12/31/19 23 12/30/2022 CBC WITH DIFFE RENTI AL/PL ATELE T MCV 86 fL 80-95 Not Available [facility] Department [address] [place], [address], 12/31/2022 06:15:32 12/31/19 23 12/30/2022 CBC WITH DIFFE RENTI AL/PL ATELE T MCH 26 pg 27-32 below low normal Not Available [facility] Department [address] [place], [address], 12/31/2022 06:15:32 12/31/19 23 12/30/2022 CBC WITH DIFFE RENTI AL/PL ATELE T MCHC 30 g/dL 32-36 below low normal Not Available [facility] Department [address] [place], [address], 12/31/2022 06:15:32 12/31/19 23 12/30/2022 CBC WITH DIFFE RENTI AL/PL ATELE T RDW 14.5 % 11.5-1 4.5 Not Available [facility] Department [address] [place], [address], 12/31/2022 06:15:32 12/31/19 23 12/30/2022 CBC WITH DIFFE RENTI AL/PL ATELE T platelets 174 K/uL 155-37 9 MPV 9.8 FL 8.9-1 2.7 N Not Available [facility] Department [address] [place], [address], 12/31/2022 06:15:32 12/31/19 23 12/30/2022 CBC WITH DIFFE RENTI AL/PL ATELE T neutrophils 75.3 % 40.0-7 4.0 above high normal Not Available [facility] Department [address] [place], [address], 12/31/2022 06:15:32 12/31/19 23 12/30/2022 CBC WITH DIFFE RENTI AL/PL ATELE T lymphs 14.5 % 14.0-4 6.0 Not Available [facility] Department [address] [place], [address], 12/31/2022 06:15:32 12/31/19 23 12/30/2022 CBC WITH DIFFE RENTI AL/PL ATELE T monocytes 9.0 % 4.0-12 .0 Not Available [facility] Department [address] [place], [address], 12/31/2022 06:15:32 12/31/19 23 12/30/2022 CBC WITH DIFFE RENTI AL/PL ATELE T eos 0 % 0-5 Not Available [facility] Department [address] [place], [address], 12/31/2022 06:15:32 12/31/19 23 12/30/2022 CBC WITH DIFFE RENTI AL/PL ATELE T basos 0.0 % 0.0-1. 0 Not Available [facility] Department [address] [place], [address], 12/31/2022 06:15:32 12/31/19 23 12/30/2022 CBC WITH DIFFE RENTI AL/PL ATELE T neutrophils (absolute) 2.6 K/uL 1.4-7. 0 Not Available [facility] Department [address] [place], [address], 12/31/2022 06:15:32 12/31/19 23 12/30/2022 CBC WITH DIFFE RENTI AL/PL ATELE T lymphs (absolute) 0.5 K/uL 0.7-3. 1 below low normal Not Available [facility] Department [address] [place], [address], 12/31/2022 06:15:32 12/31/19 23 12/30/2022 CBC WITH DIFFE RENTI AL/PL ATELE T monocytes(ab solute) 0.3 K/uL 0.1-0. 9 Not Available [facility] Department [address] [place], [address], 12/31/2022 06:15:32 12/31/19 23 12/30/2022 CBC WITH DIFFE RENTI AL/PL ATELE T eos (absolute) 0.0 K/uL 0.0-0. 4 Not Available [facility] Department [address] [place], [address], 12/31/2022 06:15:32 12/31/19 23 12/30/2022 CBC WITH DIFFE RENTI AL/PL ATELE T baso (absolute) 0.0 K/uL 0.0-0. 3 Not Available [facility] Department [address] [place], [address], 12/31/2022 06:15:32 12/31/19 23 12/30/2022 CBC WITH DIFFE RENTI AL/PL ATELE T immature granulocytes 1.2 % Not Available [facility] Department [address] [place], [address], 12/31/2022 06:15:32 12/31/19 23 12/30/2022 CBC WITH DIFFE RENTI AL/PL ATELE T immature grans (abs) 0.0 K/uL Not Available [facility] Department [address] [place], [address], 12/31/2022 06:15:32 12/31/19 23 12/30/2022 CBC WITH DIFFE RENTI AL/PL ATELE T NRBC 0 % Not Available [facility] Department [address] [place], [address], 12/31/2022 06:15:32 12/31/19 23 12/31/2022 ALBUM IN/CR EAT RATIO , RANDO M UR creatinine, urine 196.3 mg/dL notest ab. Not Available [facility] ([facility]) [address] [facility], [place], [address], 12/31/2022 10:10:34 12/31/19 23 12/31/2022 ALBUM IN/CR EAT RATIO , RANDO M UR albumin, urine 15.5 ug/mL notest ab. Not Available [facility] ([facility]) [address] [facility], [place], [address], 12/31/2022 10:10:34 12/31/19 23 12/31/2022 ALBUM IN/CR EAT RATIO , VEL Patton UR alb/creat ratio 8 mg/g_ creat 0-29 Michelle l: 0 - 29 Moder ately incre ased: 30 - 300 Sever burke incre ased: >300 Not Available [facility] ([facility]) [address] [facility], [place], [address], 12/31/2022 10:10:34 12/31/19 23 12/31/2022 HEMOG LOBIN A1C hemoglobin A1C 5.3 % 4.8-5. 6 Predi abete s: 5.7 - 6.4 Diabe jessy: >6.4 Glyce cecily contr ol for adult s with diabe jessy: <7.0 Not Available [facility] ([facility]) [address] [facility], [place], [address], 12/31/2022 10:10:35 12/31/19 23 12/31/2022 TSH TSH 0.620 uIU/m L 0.450- 4.500 Not Available [facility] ([facility]) [address] [place], [address], 12/31/2022 10:10:36 12/31/19 23 12/31/2022 VITAM IN D, 25-HY DROXY vitamin D, 25-hydroxy 70.5 NG/mL 30.0-1 00.0 Vitam in D defic iency has been defin ed by the Insti tute of Medic ine and an Endoc rine Socie ty pract ice guide line as a level of serum 25-OH vitam in D less than 20 ng/mL (1,2) . The Endoc rine Socie ty went on to furth er defin e vitam in D insuf ficie ncy as a level betwe en 21 and 29 ng/mL (2). 1. IOM (Inst itute of Medic ine). 2009. Dieta ry refer ence intak es for calci um and D. Amber fall [place]: [facility] . 2. Maddie ferguson MF, Ilene hayward [place], Marjorie off-F errar i GODFREY, et al. Evalu ation , treat ment, and preve ntion of vitam in D defic iency : an Endoc rine Socie ty clini eugenie pract ice guide line. JCEM. 2010; 96(7) :1911 -30. Not Available [facility] ([facility]) [address], [place], [address], 12/31/2022 10:10:36 04/05/2004/05/2024 MAMMO , scree didier, digit al, bilat eral No observ ation record ed. [facility] [address], [place], [address], 05/28/2024 15:34:09 Result Notes None recorded. Problems Name Problem SNOMED Code Status Onset Date Resolution Date Notes Provider Name and Address Organization Details Recorded Time Essential hypertension 42716827 Active 2019 Gio Austin MD Attn: Accounting, [address] [place], [address], [facility] 0 11:24:00 Gastroesopha geal reflux disease without esophagitis 137740981 Active 2019 Gio Austin MD Attn: Accounting, [address] [place], [address], [place] 0 11:24:02 History of migraine 527100013 Active 2019 Gio Austin MD Attn: Accounting, [address] [place], [address], [place] 0 11:24:03 Benign intracranial hypertension 19334759 Active 2019 Gio Austin MD Attn: Accounting, [address] [place], [address], [place] [facility] 0 11:24:04 Obstructive sleep apnea syndrome 69354878 Active 2019 Gio Austin MD Attn: Accounting, [address] [place], [place], [address] [place] [address], [place] [facility] 0 11:24:08 Sj??gren's syndrome 69234406 Active 2019 Gio Austin MD Attn: Accounting, [address] [facility], [place], [place], [address] [place] [address], [place] [facility] 0 11:24:10 Hypothyroidi sm 02974963 Active 2019 Gio Austin MD Attn: Accounting, [address] [facility], [place], [place], [address] [place] [address], [place] [facility] 0 11:24:11 Peripheral venous insufficienc y 64515403 Active 2019 Gio Austin MD Attn: Accounting, [address] [facility], [place], [place], [address] [place] [address], [place] [facility] 0 11:24:15 Mixed anxiety and depressive disorder 634847944 Active 2019 Gio Austin MD Attn: Accounting, [address] [facility], [place], [place], [address] [place] [address], [place] [facility] 0 11:24:41 Type 2 diabetes mellitus without complication 215825236 Active 2019 Gio Austin MD Attn: Accounting, [address] [place], [place], [address] [place] [address], [place] [facility] 0 13:53:13 Leukopenia 75993568 Active 2020 Gio Austin MD Attn: Accounting, [address] [place], [place], [address] [place] [address], [place] [facility] 1 10:56:38 Hypercholest erolemia 98336218 Active 2020 Gio Austin MD Attn: Accounting, [address] [facility], [place], [address], [facility] 1 10:32:14 Irritable bowel syndrome 75372337 Active 2022 Gio Austin MD Attn: Accounting, [address] [facility], [place], [address], [facility] - [facility] 3 10:25:23 Urinary incontinence 720571446 Active 2022 Gio Austin MD Attn: Accounting, [address] [facility], [place], [address], [facility] - [facility] 3 13:58:50 Morbid obesity 697897434 Active Caitlyn Escalante MA [facility], [place] - [facility] 6 16:47:50 Obesity 335972342 Active Mahamed Cummins MD Attn: Accounting, [address] [facility], [place], [address], [facility] - [facility] 6 17:21:40 Problem Notes None recorded. Procedures Surgical History Date Name Laterality Status Provider Name and Address Organization Details Recorded Time 04/05/20 24 Most Recent Mammogram completed Ashley To RN [facility] 04/08/2024 14:55:11 09/05/20 22 total replacement of hip completed Mae Torre MA [facility] 09/22/2022 12:29:49 02/18/20 22 Date of Last Pap Smear completed HEATHER Doran [facility] 02/19/2024 14:46:59 03/02/20 21 total replacement of hip completed Mae Torre MA [facility] 10/08/2021 11:05:03 11/02/19 03 Tubal Ligation completed Caitlyn Escalante MA [facility] 04/20/2017 17:01:47 10/02/19 00 Cholecystectomy completed JENN Cramer [facility] 12/10/2014 15:31:27 10/02/18 94 Appendectomy completed Ashley To RN [facility] 12/10/2014 15:31:27 Imaging Results Imaging Date Name Status LastModified by Organiz ation Details LastModified Time 04/05/2024 MAMMO, screening, digital, bilateral completed [facility] [address], [place], [address], 05/28/2024 15:34:09 Procedure Notes None recorded. Medical Equipment None Reported. Allergies Allergen ID Allergen Name Allergen Category Reaction Reaction Severity Criticality Documentation Date Start Date Code Code System Note Provider Name and Address Organization Details Recorded Time [id number] 2824e clindamyc in Not available Not available Not available Not available 06/25/2020 2582 RxNorm Not Available Not Available Not Available [id number] 2824e Levaquin medicatio n Not available Not available Not available 06/25/2020 71029 2 RxNorm Sores every where in mouth Not Available Not Available Not Available [id number] 2824e clarithro mycin medicatio n Not available Not available Not available 06/25/2020 25772 RxNorm Not Available Not Available Not Available [id number] Humira medicatio n nausea rash Not available Not available Not available 06/25/2020 83106 4 RxNorm Not Available Not Available Not Available [id number] Remicade medicatio n decreased blood pressure fever headache Not available Not available Not available Not available 06/25/2020 86372 0 RxNorm pain throu ghout body Not Available Not Available Not Available [id number] 2824e aspirin medicatio n Not available Not available Not available 12/10/2014 1191 RxNorm Not Available Not Available Not Available [id number] 2824e ibuprofen medicatio n Not available Not available Not available 12/10/2014 5640 RxNorm Not Available Not Available Not Available Medications Name Sig Start Date Stop Date Status Note LastModified by Organization Details LastModified Time potassium chloride er 10 meq tbcr 06/25 completed Not Available Not Available Not Available furosemide 20 mg tabs 06/25 completed Not Available Not Available Not Available levothyroxi ne sodium 25 mcg tabs 06/25 completed Not Available Not Available Not Available pantoprazol e sodium 40 mg tbec 06/25 completed Not Available Not Available Not Available lisinopril 20 mg tabs 06/25 completed Not Available Not Available Not Available levothyroxi ne sodium 200 mcg tabs 06/25 completed Not Available Not Available Not Available tramadol hcl 50 mg tabs 06/25 completed Not Available Not Available Not Available sertraline hydrochlori de 100 mg tabs 06/25 completed Not Available Not Available Not Available emgality 120 mg/ml soaj 06/25 completed Not Available Not Available Not Available azithromyci n 250 mg tabs 06/25 completed Not Available Not Available Not Available pilocarpine hydrochlori de 7.5 mg tabs 06/25 completed Not Available Not Available Not Available prednisone 2.5 mg tabs 06/25 completed Not Available Not Available Not Available cevimeline hydrochlori de 30 mg caps 06/25 completed Not Available Not Available Not Available cyclobenzap rine hydrochlori de 10 mg tabs 06/25 completed Not Available Not Available Not Available dicyclomine hydrochlori de 20 mg tabs 06/25 completed Not Available Not Available Not Available amoxicillin 500 mg tabs 06/25 completed Not Available Not Available Not Available cyclobenzap rine 10 mg tablet TAKE 1 TABLET BY MOUTH DAILY active Not Available Not Available No t Available amoxicillin 500 mg capsule TAKE 4 CAPSULES BY MOUTH 1 HOUR PRIOR TO APPOINTME NT 08/11 completed Not Available Not Available Not Available furosemide 40 mg tablet 06/25 completed Not Available Not Available Not Available metformin 500 mg tablet Take 1 tablet twice a day by oral route with meals for 30 days. active Not Available Not Available No t Available levothyroxi ne 175 mcg tablet active Not Available Not Available Not Available levothyroxi ne 137 mcg tablet 06/25 completed Not Available Not Available Not Available prednisone 10 mg tablet 06/25 completed Not Available Not Available Not Available azithromyci n 250 mg tablet TAKE DIRECTED 08/11 completed Not Available Not Available Not Available pravastatin 40 mg tablet active Not Available Not Available Not Available fluconazole 150 mg tablet TAKE 1 TABLET BY MOUTH EVERY WEEK FOR 21 DAYS 12/30 completed Not Available Not Available Not Available levothyroxi ne 300 mcg tablet 06/25 completed Not Available Not Available Not Available valacyclovi r 1 gram tablet TAKE 1 TABLET BY MOUTH THREE TIMES DAILY FOR 7 DAYS active Not Available Not Available No t Available sumatriptan 100 mg tablet 06/25 completed Not Available Not Available Not Available hydrocodone 5 mg-acetamin ophen 325 mg tablet TAKE 1 TABLET BY MOUTH EVERY 6 HOURS NEEDED FOR PAIN 09/13 completed Not Available Not Available Not Available bacitracin 500 unit/gram eye ointment 10/06 completed Not Available Not Available Not Available lisinopril 20 mg tablet take once daily active Not Available Not Available No t Available famotidine 40 mg tablet TAKE 1 TABLET BY MOUTH DAILY active Not Available Not Available No t Available prednisone 20 mg tablet TAKE 2 TABLETS BY MOUTH DAILY FOR 5 DAYS 03/11 completed Not Available Not Available Not Available rizatriptan 10 mg tablet 06/25 completed Not Available Not Available Not Available sertraline 100 mg tablet take once daily active Not Available Not Available No t Available prednisone 5 mg tablet 06/25 completed Not Available Not Available Not Available clobetasol 0.05 % topical cream 06/25 completed Not Available Not Available Not Available acetazolami de 250 mg tablet active Not Available Not Available Not Available potassium chloride ER 10 mEq tablet,exte nded release Take once daily 11/27 completed Not Available Not Available Not Available phentermine 37.5 mg tablet TAKE 1 TABLET BY MOUTH EVERY DAY BEFORE BREAKFAST 09/13 completed Not Available Not Available Not Available Vitamin C 500 mg chewable tablet active Not Available Not Available Not Available ciprofloxac in 500 mg tablet 06/25 completed Not Available Not Available Not Available sulfamethox azole 800 mg-trimetho prim 160 mg tablet TAKE 1 TABLET BY MOUTH EVERY 12 HOURS FOR 5 DAYS 11/27 completed Not Available Not Available Not Available tramadol 50 mg tablet TAKE 1 TABLET BY MOUTH EVERY 6 HOURS active Not Available Not Available No t Available amitriptyli ne 50 mg tablet 06/25 completed Not Available Not Available Not Available triamcinolo ne acetonide 0.1 % topical cream APPLY THIN LAYER TOPICALLY TO THE AFFECTED AREA TWICE DAILY 10/08 completed Not Available Not Available Not Available amoxicillin 500 mg tablet TAKE 4 TABLETS BY MOUTH 1 HOUR PRIOR TO APPOINTME NT active Not Available Not Available No t Available simvastatin 40 mg tablet 06/25 completed Not Available Not Available Not Available levothyroxi ne 100 mcg tablet 06/25 completed Not Available Not Available Not Available oxycodone-a cetaminophe n 5 mg-325 mg tablet 12/30 completed Not Available Not Available Not Available amoxicillin 875 mg tablet TAKE 1 TABLET BY MOUTH TWICE DAILY WITH FOOD UNTIL ALL TAKEN 08/11 completed Not Available Not Available Not Available potassium chloride ER 20 mEq tablet,exte nded release(par t/cryst) 06/25 completed Not Available Not Available Not Available amitriptyli ne 25 mg tablet 06/25 completed Not Available Not Available Not Available pravastatin 10 mg tablet TAKE 1 TABLET BY MOUTH EVERY DAY AT DINNER 03/04 completed Not Available Not Available Not Available dicyclomine 20 mg tablet TAKE 1 TABLET BY MOUTH TWICE DAILY DIRECTED active Not Available Not Available No t Available diazepam 2 mg tablet 06/25 completed Not Available Not Available Not Available benzonatate 100 mg capsule TAKE 1 CAPSULE BY MOUTH THREE TIMES DAILY FOR 5 DAYS active Not Available Not Available No t Available doxycycline monohydrate 100 mg capsule TAKE 1 CAPSULE BY MOUTH TWICE DAILY FOR 5 DAYS 05/09 completed Not Available Not Available Not Available levothyroxi ne 50 mcg tablet Take 1 tablet every day by oral route. 03/04 completed Not Available Not Available Not Available prednisone 2.5 mg tablet Take three times daily active Not Available Not Available No t Available cephalexin 500 mg capsule 06/25 completed Not Available Not Available Not Available pantoprazol e 40 mg tablet,mata yed release 06/25 completed Not Available Not Available Not Available metformin 1,000 mg tablet 12/30 completed Not Available Not Available Not Available levothyroxi ne 125 mcg tablet 06/25 completed Not Available Not Available Not Available nitrofurant oin macrocrysta l 100 mg capsule TAKE 1 CAPSULE BY MOUTH THREE TIMES DAILY FOR 7 DAYS 10/06 completed Not Available Not Available Not Available cevimeline 30 mg capsule TAKE 1 CAPSULE BY MOUTH THREE TIMES DAILY active Not Available Not Available No t Available lisinopril 10 mg tablet 06/25 completed Not Available Not Available Not Available erythromyci n ethylsuccin ate 400 mg tablet 06/25 completed Not Available Not Available Not Available levothyroxi ne 200 mcg tablet Take 1 tablet every day by oral route in the morning. 03/04 completed Not Available Not Available Not Available pravastatin 20 mg tablet TAKE 1 TABLET BY MOUTH EVERY DAY AT DINNER 12/29 completed Not Available Not Available Not Available mupirocin 2 % topical ointment APPLY THIN LAYER TO AFFECTED LAYERS TWICE DAILY NEEDED 12/30 completed Not Available Not Available Not Available furosemide 20 mg tablet Take once daily 12/30 completed Not Available Not Available Not Available ergocalcife rol (vitamin D2) 1,250 mcg (50,000 unit) capsule TAKE 1 CAPSULE BY MOUTH WEEKLY active Not Available Not Available No t Available Cheratussin AC 10 mg-100 mg/5 mL oral liquid 06/25 completed Not Available Not Available Not Available hydroxychlo roquine 200 mg tablet 06/25 completed Not Available Not Available Not Available levofloxaci n 750 mg tablet 06/25 completed Not Available Not Available Not Available methylpredn isolone 4 mg tablets in a dose pack TAKE DIRECTED WITH MEALS 05/10 completed Not Available Not Available Not Available albuterol sulfate HFA 90 mcg/actuati on aerosol inhaler INHALE 2 PUFFS BY MOUTH FOUR TIMES DAILY NEEDED FOR SHORTNESS OF BREATH OR WHEEZING active Not Available Not Available No t Available oxybutynin chloride 5 mg tablet TAKE 1 TABLET BY MOUTH TWICE DAILY 05/10 completed Not Available Not Available Not Available ondansetron 4 mg disintegrat ing tablet 12/29 completed Not Available Not Available Not Available fluticasone propionate 50 mcg/actuati on nasal spray,suspe nsion 06/25 completed Not Available Not Available Not Available sertraline 50 mg tablet 06/25 completed Not Available Not Available Not Available amoxicillin 875 mg-potassiu m clavulanate 125 mg tablet TAKE 1 TABLET BY MOUTH EVERY 12 HOURS FOR 7 DAYS active Not Available Not Available No t Available potassium chloride ER 10 mEq tablet,exte nded release(par t/cryst) 06/25 completed Not Available Not Available Not Available pilocarpine 7.5 mg tablet TAKE 1 TABLET BY MOUTH THREE TIMES DAILY active Not Available Not Available No t Available nitrofurant oin monohydrate /macrocryst als 100 mg capsule TAKE 1 CAPSULE BY MOUTH EVERY 12 HOURS FOR 5 DAYS 12/30 completed Not Available Not Available Not Available capsaicin 0.1 % topical cream apply small amount locally TID active Not Available Not Available No t Available melatonin 09/13 completed Not Available Not Available Not Available BD Ultra-Fine Short Pen Needle 31 gauge x 5/16 USE UTD active Not Available Not Available Not Available cholecalcif klarissa (vitamin D3) 1,250 mcg (50,000 unit) capsule TAKE 1 CAPSULE BY MOUTH 1 TIME A WEEK active Not Available Not Available No t Available FeroSul 325 mg (65 mg iron) tablet Take 1 tablet every day by oral route. active Not Available Not Available No t Available Lantus Solostar U-100 Insulin 100 unit/mL (3 mL) subcutaneou s pen ADM 10 UNI SC QD AT DINNER 10/27 completed Not Available Not Available Not Available sodium,pota ssium,mag sulfates 17.5 gram-3.13 gram-1.6 gram oral soln active Not Available Not Available Not Available OneTouch Verio test strips TEST TWICE DAILY active Not Available Not Available No t Available cholecalcif klarissa (vitamin D3) 1,250 mcg (50,000 unit) tablet Take 1 tablet every month by oral route. 03/04 completed Not Available Not Available Not Available Eliquis 2.5 mg tablet 12/30 completed Not Available Not Available Not Available Stimulant Laxative Plus 8.6 mg-50 mg tablet 12/30 completed Not Available Not Available Not Available Trokendi XR 100 mg capsule, extended release 06/25 completed Not Available Not Available Not Available potassium chloride ER 20 mEq tablet,exte nded release TAKE 1 TABLET BY MOUTH DAILY WITH A MEAL 12/30 completed Not Available Not Available Not Available Trulicity 1.5 mg/0.5 mL subcutaneou s pen injector ADMINISTE R 1.5 MG UNDER THE SKIN 1 TIME A WEEK 09/13 completed Not Available Not Available Not Available OneTouch Verio Flex Meter active Not Available Not Available Not Available Xiidra 5 % eye drops in a dropperette 06/25 completed Not Available Not Available Not Available Humira(CF) Pen 40 mg/0.4 mL subcutaneou s kit 06/25 completed Not Available Not Available Not Available Aimovig Autoinjecto r 70 mg/mL subcutaneou s auto-inject or active Not Available Not Available Not Available Emgality Pen 120 mg/mL subcutaneou s pen injector ADMINISTE R 1 ML UNDER THE SKIN EVERY 30 DAYS 09/13 completed Not Available Not Available Not Available OneTouch Delica Plus Lancet 33 gauge USE TWICE DAILY/ DX code = E11.9 active Not Available Not Available No t Available Nurtec ODT 75 mg disintegrat ing tablet DISSOLVE ONE TABLET BY MOUTH DAILY NEEDED FOR MIGRAINE FLARE UP active Not Available Not Available No t Available Gemtesa 75 mg tablet TAKE 1 TABLET BY MOUTH DAILY active Not Available Not Available No t Available Qulipta 60 mg tablet TAKE 1 TABLET BY MOUTH DAILY active Not Available Not Available No t Available Paxlovid 300 mg (150 mg x 2)-100 mg tablets in a dose pack TAKE DIRECTED FOR 5 DAYS 08/11 completed Not Available Not Available Not Available Mounjaro 5 mg/0.5 mL subcutaneou s pen injector ADMINISTE R 5 MG UNDER THE SKIN EVERY 7 DAYS active Not Available Not Available No t Available Mounjaro 2.5 mg/0.5 mL subcutaneou s pen injector ADMINISTE R 2.5 MG UNDER THE SKIN EVERY 7 DAYS active Not Available Not Available No t Available Vitals Date Recorded Body height Provider Name an d Address Organization Details Last Updated DateTime 12/30/2022 165.1 cm Mae Torre [facility] 023 09:49:35 Date Recorded Body mass index (BMI) Body weight Provider Name and Address Organization Details Last Updated DateTime 12/30/2022 42.6 kg/m2 712151.29 g Mae Torre [facility] 12/30/2022 09:49:46 Date Recorded Body temperature Provider Name a nd Address Organization Details Last Updated DateTime 12/30/2022 96.8 [degF] MAYO Wilson [facility] 2022 09:50:49 Date Recorded Respiratory rate Provider Name a nd Address Organization Details Last Updated DateTime 12/30/2022 16 /min MAYO Wilson [facility] 023 09:50:54 Date Recorded Heart rate Provider Name an d Address Organization Details Last Updated DateTime 12/30/2022 99 /min MAYO Wilson [facility] 023 09:52:49 Date Recorded Body height Provider Name an d Address Organization Details Last Updated DateTime 05/10/2023 165.1 cm MAYO Wilson 023 09:15:59 Date Recorded Body mass index (BMI) Body weight Provider Name and Address Organization Details Last Updated DateTime 05/10/2023 44.5 kg/m2 939041.88 g MAYO Wilson [facility] 05/10/2023 09:16:05 Date Recorded Respiratory rate Provider Name a nd Address Organization Details Last Updated DateTime 05/10/2023 16 /min MAYO Wilson [facility] 023 09:19:40 Date Recorded Body temperature Provider Name a nd Address Organization Details Last Updated DateTime 05/10/2023 96.8 [degF] MAYO Wilson [facility] 2022 09:19:44 Date Recorded Heart rate Provider Name an d Address Organization Details Last Updated DateTime 05/10/2023 91 /min MAYO Wilson [facility] 023 09:19:50 Date Recorded Body height Provider Name an d Address Organization Details Last Updated DateTime 09/13/2023 165.1 cm MAYO Wilson [facility] 023 09:11:36 Date Recorded Body mass index (BMI) Body weight Provider Name and Address Organization Details Last Updated DateTime 09/13/2023 45.6 kg/m2 046664.03 g MAYO Wilson [facility] 09/13/2023 09:11:45 Date Recorded Body temperature Provider Name a nd Address Organization Details Last Updated DateTime 09/13/2023 96.8 [degF] MaeMAYO Renee [facility] 2022 09:12:55 Date Recorded Respiratory rate Provider Name a nd Address Organization Details Last Updated DateTime 09/13/2023 16 /min MAYO Wilson [facility] 023 09:13:34 Date Recorded Heart rate Provider Name an d Address Organization Details Last Updated DateTime 09/13/2023 89 /min Mae Torre [facility] 023 09:14:03 Date Recorded Body height Provider Name an d Address Organization Details Last Updated DateTime 10/09/2023 165.1 cm Mae Torre [facility] 024 16:06:36 Date Recorded Body height Provider Name an d Address Organization Details Last Updated DateTime 02/29/2024 165.1 cm Ashley To RN [facility] 16:23:17 Date Recorded Body mass index (BMI) Body weight Provider Name and Address Organization Details Last Updated DateTime 02/29/2024 44.6 kg/m2 400048.76 g Ashley To RN [facility] 02/29/2024 16:32:22 Date Recorded Systolic blood pressure Diastolic blood pressure Provider Name and Address Organization Details Last Updated DateTime 12/30/2022 132 mm[Hg] 86 mm[Hg] Mae Torre [facility] 12/30/2022 09:52:44 Date Recorded Systolic blood pressure Diastolic blood pressure Provider Name and Address Organization Details Last Updated DateTime 05/10/2023 133 mm[Hg] 87 mm[Hg] Mae Torre [facility] 05/10/2023 09:20:06 Date Recorded Systolic blood pressure Diastolic blood pressure Provider Name and Address Organization Details Last Updated DateTime 09/13/2023 147 mm[Hg] 89 mm[Hg] Mae Torre [facility] 09/13/2023 09:18:28 Date Recorded Systolic blood pressure Diastolic blood pressure Provider Name and Address Organization Details Last Updated DateTime 02/29/2024 126 mm[Hg] 74 mm[Hg] Ashley To RN [facility] 02/29/2024 16:32:27 Social History Question Answer Notes LastModified by Organizat ion Details LastModified Time Tobacco Smoking Status Former Smoker Ashley To RN [facility], [facility] 12/10/2014 15:31:27 Do You Have An Advance Directive? No Information not available 03/11/2022 What Is Your Level Of Alcohol Consumption? None Information not available 03/04/2021 Are You Blind Or Do You Have Difficulty Seeing? No Information not available 03/04/2021 What Is Your Level Of Caffeine Consumption? Moderate Information not available 03/04/2021 In The 14 Days Before Symptom Onset, Have You Had Close Contact With A Laboratory-confir med COVID-19 While That Case Was Ill? No Information not available 03/04/2021 In The 14 Days Before Symptom Onset, Have You Had Close Contact With A Person Who Is Under Investigation For COVID-19 While That Person Was Ill? No Information not available 03/04/2021 Have You Been To An Area Known To Be High Risk For COVID-19? No Information not available 03/04/2021 Are You Currently Employed? Yes Information not available 03/04/2021 Are You Deaf Or Do You Have Serious Difficulty Hearing? No Information not available 03/04/2021 What Type Of Diet Are You Following? DIABETIC Information not available 03/04/2021 Do You Or Have You Ever Used E-cigarettes Or Vape? Never Used Electronic Cigarettes Information not available 06/25/2020 Are There Any Guns Present In Your Home? No Information not available 03/04/2021 What Was The Date Of Your Most Recent Tobacco Screening? 10/09/2023 Information not available 10/09/2023 What Is Your Current Pack Years? 20-29packyears Information not available 11/30/2020 What Is Your Relationship Status? [email or web address] Information not available 12/22/2014 Do You Use Your Seat Belt Or Car Seat Routinely? Yes Information not available 03/04/2021 Do You Have Smoke And Carbon Monoxide Detectors In Your Home? Yes Information not available 03/04/2021 At What Age Did You Start Smoking Tobacco? 12 Information not available 11/30/2020 Do You Or Have You Ever Used Smokeless Tobacco? Never Used Smokeless Tobacco Information not available 06/25/2020 How Much Tobacco Do You Smoke? 1 PPD Information not available 11/30/2020 Do You Feel Stressed (tense, Restless, Nervous, Or Anxious, Or Unable To Sleep At Night)? [id number] Information not available 03/04/2021 Do You Use Any Illicit Or Recreational Drugs? No Information not available 03/04/2021 Do You Use Sunscreen Routinely? Yes Information not available 03/04/2021 Has Tobacco Cessation Counseling Been Provided? No Information not available 11/30/2020 How Many Years Have You Smoked Tobacco? 25 Information not available 11/30/2020 Do You Or Have You Ever Used Any Other Forms Of Tobacco Or Nicotine? No Information not available 11/30/2020 Sex: Female Functional Status Question Answer Note LastModified by Organization D etails LastModified Time Are you able to care for yourself? Yes Information n ot available 03/04/2021 Mental Status None recorded. Family History Relationship Description Onset Age of this Age Resolved Age Notes LastModified by Organization Details LastModified Time Mother Glomerulonep hritis due to granulomatos is with polyangiitis ssuthan Not available 10:46:00 Mother Autoimmune hepatitis ssuthan Not available 2019 10:46:23 Mother Pulmonary embolism ssuthan Not available 2019 10:46:34 Mother Diabetes mellitus ssuthan Not available 2019 10:46:41 Mother Neoplasm of pituitary gland ssuthan Not available 2019 10:47:01 Father Asthma ssuthan Not available 10:49:40 Sister Hypertensive disorder ssuthan Not available 2019 10:50:13 Sister Psoriatic arthritis ssuthan Not available 2019 10:50:55 Daughter Bipolar disorder ssuthan Not available 2019 10:52:04 Daughter Bicuspid cardiac valve ssuthan Not available 2019 10:52:19 Medical History Condition Response Diabetes N Anxiety Disorder N Coronary Artery Disease N Atrial Fibrillation N High Blood Pressure Y Heart Problems/Murmur Y Arthritis Y Acid Reflux (GERD) N Cancer N Thyroid Problems Y Kidney or Bladder Problems N Asthma N Allergies N GI Problems N Blood Clots N COPD N Depression Y Anemia Y High Cholesterol Y Hepatitis N Liver Disease N Heart Attack ([place]) N Headaches Y Heart Failure N Gynecological History Statement/Question Response Abnormal Pap N Date of LMP 05/16/2021 Menses Monthly Y Date of Last Pap Smear 02/17/2022 Current Control Method Tubal Ligat ion Most Recent Mammogram 04/05/2024 LMP Definite Obstetrics History GPAL:G 3 P 3 0 0 3 Type Value Full Term 3 Living 3 Total 3 Immunizations Vaccine Type Date Status Note Provider Nam e and Address Organization Details Recorded Time Influenza, split virus, quadrivalent, preservative 2 completed Gio Austin MD Attn: [facility],[address] [place], [address], [facility] 08/11/2022 13:21:02 Influenza, split virus, quadrivalent, preservative 3 completed Gio Austin MD Attn: [address],[address] [place], [address], [facility] 09/13/2023 13:58:55 Past Encounters Encounter ID Performer Location Encounter Start Date Encounter Closed Date Diagnosis/Indication Diagnosis SNOMED-CT Code Diagnosis ICD10 Code Diagnosis Note [id number] JENN Cramer ([place] [address]) [address] [facility] [place] [address] 12/22/2014 16:23:45 12/22/2014 17:17:40 Gynecologic examination 02311361 Screening for malignant neoplasm of breast 534623158 Morbid obesity [id number] MD Kathryn Vicente ([place] [address]) [address] [facility] [place] [address] 04/18/2016 16:22:09 04/19/2016 11:45:37 Gynecologic examination 07560825 Z01.419 Obesity 874708442 E66.9 Screening for malignant neoplasm of breast 930349765 Z12.31 [id number] MD Kathryn Vicente ([facility]) [address] [facility] [place] [address] 04/20/2017 16:15:15 04/21/2017 08:49:26 Gynecologic examination 47349738 Z01.419 Screening for malignant neoplasm of breast 114620083 Z12.31 Morbid obesity 931941887 E66.01 [id number] MD Kathryn Vicente 14 OB [address] [facility] [place] [address] 11/22/2018 15:16:24 11/23/2018 09:28:57 Gynecologic examination 96337676 Z01.419 Screening for malignant neoplasm of breast 262872291 Z12.31 Morbid obesity 389136445 E66.01 [id number] MD Kathryn Vicente 14 OB [address] [facility] [place] [address] 11/26/2019 16:20:47 11/27/2019 15:23:29 Gynecologic examination 40322123 Z01.419 Screening for malignant neoplasm of breast 919697675 Z12.31 [id number] MD Kathryn Coronel 14 IM [address] [facility] [place] [address] 06/25/2020 08:15:00 06/26/2020 08:56:28 Essential hypertension 58808361 I10 Clinically feels wellLow salt diet Gastroesop hageal reflux disease without esophagitis 038278734 K21.9 Under care by GI Also being Rxed for IBSLoose weight , avoid soda, spicy stuff,Use medication as prescribed . History of migraine 1614 31368 Z86.69 Under care by Benign int racranial hypertension 16169084 G93.2 Diagnosed pseudotumo r cerebri, Had tap last yaer Obstructiv e sleep apnea syndrome 40478362 G47.33 Under care by Sj??gren's syndrome 8390 1003 M35.00 Under care by Hypothyroidism 50441999 E03.9 Under care by Endo Morbid obesity 665621344 E66.01 Recommend to loose weight with diet control and exercise.O n phentermin e per the EndoAgree to see Bariatric team Peripheral venous insufficiency 58030376 I87.2 Causing leg swelling with prominence of veins.Has an order to dopplerUse stocking when on your feet Mixed anxi ety and depressive disorder 099726815 F41.8 clinically feels ok on sertraline .Aware of SEs Long-term drug therapy 713843983 Z79.108 [id number] MD Kathryn Coronel 14 IM [address] [facility] [place] [address] 08/28/2020 09:28:33 08/31/2020 16:16:29 Essential hypertension 98966617 I10 Clinically feels wellLow salt diet Hypothyroidism 27542803 E03.9 Under care by Manuel Dozier??gren's syndrome 8390 1003 M35.00 Under care by History of migraine 1614 54630 Z86.69 Under care by Obstructiv e sleep apnea syndrome 10908476 G47.33 Under care by Benign int racranial hypertension 40916990 G93.2 Diagnosed pseudotumo r cerebri, Had tap last yaer Gastroesop hageal reflux disease without esophagitis 163960265 K21.9 Under care by GI Also being Rxed for IBSLoose weight , avoid soda, spicy stuff,Use medication as prescribed . 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 628029096 E11.9 New fpsdhF2p was 11.1 with FBS 382, TG 246Will refer to Nutritinis t.Pt to d/s with her EndoLantus 10 units at dinnerChec k BS at least BID and call back in 1 wkPt was educated about meal/porti on size.Stay away from sugary stuffWill add pravastati n 10mg at dinner- to reduce inflammati on in vessel Long-term drug therapy 061466514 Z79.197 [id number] MD Kathryn Coronel 14 IM [address] [facility] [place] [address] 10/27/2020 13:26:28 10/28/2020 21:03:39 Acute urinary tract infection 217659489 N39.0 Hydrate wellDrink cranberry juiceTake medication as prescribed .Trial of bactrim if no better do UA in 1 wk with ABST [id number] MD Kathryn Coronel 14 IM [address] [facility] [place] [address] 11/27/2020 08:28:35 11/29/2020 23:28:28 Essential hypertension 14229101 I10 Clinically feels wellLow salt diet Type 2 estrella betes mellitus without complication 908220269 E11.9 New wwnuuD8o was 11.1 with FBS 382, TG 246Will refer to Nutrijanice t.Pt to d/s with her EndoLantus 10 units at dinnerChec k BS at least BID and call back in 1 wkPt was educated about meal/porti on size.Stay away from sugary stuffWill add pravastati n 10mg at dinner- to reduce inflammati on in vessel11/27Under care by EndoOnly on metformin, Home BS betterreco mmend to see air traffic control specialist Gastroesop hageal reflux disease without esophagitis 909765996 K21.9 Under care by GI Also being Rxed for IBSLoose weight , avoid soda, spicy stuff,Use medication as prescribed . Hypothyroidism 31981060 E03.9 Under care by Endo Benign int racranial hypertension 77373698 G93.2 Diagnosed pseudotumo r cerebri, Had tap last year Obstructiv e sleep apnea syndrome 32844444 G47.33 Under care by Sj??gren's syndrome 8390 1003 M35.00 Under care by Peripheral venous insufficiency 40973240 I87.2 Causing leg swelling with prominence of veins.Has an order to do dopplerUse stocking when on your feet Paresis of lower extremity 071929894 G83.11 some weakness with no numbness ? due to RA vs other reasondoes undergo PTCheck X ray knee and hip on that side- r/o DJDIf neg consider CT brain in future if neededreco mmend to f/u with her neurologis t earlier Leukopenia 20847636 D72. 819 With low neutrophil sDoes see Hematologi st at [facility] Long-term drug therapy 904656443 Z79.854 [id number] MD Kathryn Vicente 14 OB [address] [facility] [place] [address] 11/30/2020 16:21:31 12/01/2020 11:54:41 Gynecologic examination 26096505 Z01.419 Screening for malignant neoplasm of breast 950175650 Z12.31 Morbid obesity 230060018 E66.01 Candidiasis of skin 4988 3006 B37.2 Overactive urinary bladder 673845800 N32.81 [id number] MD Kathryn Coronel 14 IM [address] [facility] [address] [place] [address] 03/04/2021 08:58:52 03/05/2021 11:35:45 Type 2 diabetes mellitus without complication 558149182 E11.9 New onset A1c was 11.1 with FBS 382, TG 246 Will refer to Nutritinis t. Pt to d/s with her Endo Lantus 10 units at dinner Check BS at least BID and call back in 1 wk Pt was educated about meal/porti on size. Stay away from sugary stuff Will add pravastati n 10mg at dinner- to reduce inflammati on in vessel 11/27/20 Under care by Endo Only on metformin, Home BS better recommend to see air traffic control specialist 03/04/21 A1c 5.7 Under care by Endo eye exam- wnl per the pt Pt to d/s ozempic with her specialist for wt loss ect Essential hypertension 67596228 I10 Clinically feels wellLow salt diet Hypothyroidism 36497771 E03.9 Under care by Endo Gastroesop hageal reflux disease without esophagitis 788788813 K21.9 Under care by GI Also being Rxed for IBS Loose weight , avoid soda, spicy stuff, Use medication as prescribed . Benign int racranial hypertension 08969561 G93.2 Diagnosed pseudotumo r cerebri, Had tap last year Obstructiv e sleep apnea syndrome 71399495 G47.33 Under care by Sj??gren's syndrome 8390 1003 M35.00 Under care by Leukopenia 72897616 D72. 819 With low neutrophil sDoes see Hematologi st at [facility] Mixed anxi ety and depressive disorder 874974516 F41.8 clinically feels ok on sertraline .Aware of SEs Peripheral venous insufficiency 04718997 I87.2 Causing leg swelling with prominence of veins. Has an order to do doppler Use stocking when on your feet 03/04/21 Clinically doing OK History of migraine 1204 16846 Z86.69 Under care by Overactive urinary bladder 200226805 N32.81 Under care by Seismology Teacher, on oxybutynin Body mass index 40+ - severely obese 655463561 Z68.41 Recommend to loose weight with diet control and exercise. Pre-surger y evaluation 061366395 Z01.818 for R/hip replacemen t post approach scheduled 03/15/21 since abnormal EKG- will get cardio eval and order 2d echo since US , PT/PTT not done- will order as well will be clearing if the above is OK pt to hold lisinopril and metformin on the day of surgery. Cellulitis of lower limb 979224737 L03.119 R/lower leg area ? bug bite, improving take doxy Pruritic rash 09557299 L 28.2 r/hairline area ? silvery- / psoriasis tramcinalo ne topical Electrocar diogram abnormal 804974231 R94.31 Per the EKG and pt doesn't have symptoms. last stress test in 2008 was wnl. Hypercholesterolemia 136 84942 E78.00 LDL 109, increase pravastati n to 20mg daily control fatty meal Vitamin D deficiency 347 81843 E55.9 On replacemen t per the Endo check level [id number] MD Kathryn Coronel 14 IM [address] [facility] [address] [place] [address] 10/08/2021 10:54:29 10/09/2021 14:35:02 Hypothyroidism 22331986 E03.9 Under care by Endo Type 2 estrella betes mellitus without complication 258675237 E11.9 03/04/21 A1c 5.7 Under care by Endo eye exam- wnl per the pt Pt to d/s ozempic with her specialist for wt loss ect10/08/21D id see VuwkX9j was 5.2 in May, on metforminH ome BS better Essential hypertension 48972314 I10 Clinically feels wellLow salt diet Benign int racranial hypertension 53390143 G93.2 Diagnosed pseudotumo r cerebri, Had tap last year Obstructiv e sleep apnea syndrome 19734307 G47.33 Under care by Hypercholesterolemia 136 55426 E78.00 LDL 109, increase pravastati n to 20mg daily control fatty meal Gastroesop hageal reflux disease without esophagitis 426061917 K21.9 Under care by GI Also being Rxed for IBS Loose weight , avoid soda, spicy stuff, Use medication as prescribed . Sj??gren's syndrome 8390 1003 M35.00 Under care by Mixed anxi ety and depressive disorder 138809127 F41.8 clinically feels ok on sertraline .Aware of SEs History of migraine 1614 [address]RaiEmga solis not covered, using sample acute 'PRN' medication per the specialist Cervical lymphadenopathy 150067308 R59.0 L/sidedhas bad teeth and gums too also Sjogrensmo uth washF/u with dentisUse amoxil Exposure t o SARS-CoV-2 211517789 Z20.822 Awaiting PCR results per the UCmild symptomsre commend follow CDC guidelines Screening for malignant neoplasm of colon 310486295 Z12.11 [id number] MD Kathryn Vicente 14 OB [address] [facility] [place] [address] 02/17/2022 16:19:22 02/18/2022 11:14:54 Gynecologic examination 67156770 Z01.419 Screening for malignant neoplasm of breast 757242308 Z12.31 Candidiasis of skin 4988 3006 B37.2 [id number] MD Kathryn Coronel 14 IM [address] [facility] [place] [address] 03/11/2022 11:58:11 03/14/2022 13:33:16 Hypercholesterolemia 39192866 E78.00 LDL 109, increase pravastati n to 20mg daily control fatty meal Gastroesop hageal reflux disease without esophagitis 518750887 K21.9 Under care by GI Also being Rxed for IBS Loose weight , avoid soda, spicy stuff, Use medication as prescribed . Type 2 estrella betes mellitus without complication 194985146 E11.9 Does see UbdsH2h was 5.2 in May, on metforminH ome BS better Hypothyroidism 29996765 E03.9 Under care by Endo Essential hypertension 32176765 I10 Clinically feels wellLow salt diet Obstructiv e sleep apnea syndrome 03704039 G47.33 Under care by - awaiting new machine was recalled, using the old one COVID-19 202154917 U07.1 home covid test positivehy shobha well, OK for OTC cough medication Paxaloid mg sent- to hold pravstatin due ring the Rx.D/w pt the current pandemic of COVID-19 and call for social isolation in order to blunt the curve and minimize risk and spread. Encouraged patient and family to take restrictio ns seriously. They have verbalized understand ing of such.if getting worse go to ER [id number] MD Kathryn Coronel 14 IM [address] [facility] [address] [place] [address] 08/11/2022 09:18:09 08/12/2022 09:07:01 Type 2 diabetes mellitus without complication 467044307 E11.9 Does see ZfjwV8w was 5.2 in May, on metforminH ome BS better Essential hypertension 00428796 I10 [address] same with low salt diet Obstructiv e sleep apnea syndrome 42456832 G47.33 Under care by -on a new machine lately! Sj??gren's syndrome 8390 1003 M35.00 Under care by Gastroryanop hageal reflux disease without esophagitis 484808339 K21.9 Under care by GI Also being Rxed for IBS Loose weight , avoid soda, spicy stuff, Use medication as prescribed . Hypercholesterolemia 136 81102 E78.00 LDL 109, increase pravastati n to 20mg daily control fatty meal Hypothyroidism 90488772 E03.9 Under care by Endo Morbid obesity 667706610 E66.01 Recommend to loose weight with diet control and exercise.O n phentermin e per the Endo Administra tion of influenza vaccine 88749985 Z23 no issue before Benign int racranial hypertension 73048600 G93.2 Diagnosed pseudotumo r cerebri, Had tap last year History of migraine 1614 [address] Z86[address]Raion avina Leukopenia 41365613 D72. 819 With low neutrophil sDoes see Hematologi st at [facility] Screening for malignant neoplasm of colon 386634682 Z12.11 Acute urin omaira tract infection 355610275 N39.0 Hydrate wellDrink cranberry juiceTake medication as prescribed .Trial of macrobid if no better do UA in 1 wk with ABST Hypokalemia 21818275 E87 .6 was 3.1- pt scheduled to do pre op labs soon, will f/u Pre-surger y evaluation 636805706 Z01.818 for R/hip replacemen t post approach scheduled 03/15/21 since abnormal EKG- will get cardio eval and order 2d echo since US , PT/PTT not done- will order as well will be clearing if the above is OK pt to hold lisinopril and metformin on the day of surgery.For L/hip, scheduled on 09/05/22- Has appt with Dr.King Florez as before next wk for clearance tooAwaitin g labs done next wkWill clear pending labs [id number] MD Kathryn Coronel 14 IM [address] [facility] [place] [address] 09/22/2022 11:59:16 09/23/2022 10:37:43 Incontinence 61152924 R32 At times with burning r/o UTI- already gave sample for UAHydrate wellDrink cranberry juiceTake medication as prescribed . [id number] MD Kathryn Coronel 14 IM [address] [facility] [place] [address] 12/30/2022 09:38:46 01/02/2023 11:24:43 Hypercholesterolemia 43671193 E78.00 LDL 109, increase pravastati n to 40mg daily control fatty meal Type 2 estrella betes mellitus without complication 572303967 E11.9 Does see JqqtY1a was 5.2 in May, on metforminH ome BS better Essential hypertension 84358574 I10 [address]rolled [address] same with low salt diet Obstructiv e sleep apnea syndrome 27707481 G47.33 Under care by -on a new machine lately! History of migraine 1614 32818 Z86.69 Under care by aimkristi Hypothyroidism 91358539 E03.9 Under care by Endo Gastroesop hageal reflux disease without esophagitis 530819871 K21.9 Under care by GI Also being Rxed for IBS Loose weight , avoid soda, spicy stuff, Use medication as prescribed . Sj??gren's syndrome 8390 1003 M35.00 Under care by on cevimeline Urinary incontinence 165 258185 R32 Pt scheduled to see Dr.ZaidOn carrascobutynmarla per , Seismology Teacher Long-term drug therapy 979905176 Z79.899 Irritable bowel syndrome 66978089 K58.9 Under care by GI - on famotidine and dicyclomin e Cellulitis 267872639 L03 .90 Healing due to scratch bite/scrat ch Lateral ep icondylitis of right humerus 2636313888 61895 M77.11 Medrol dose mg- with mealUse the strap and d/s with your Ortho Screening for malignant neoplasm of colon 730245697 Z12.11 Morbid obesity 126709778 E66.01 Recommend to loose weight with diet control and exercise.O n phentermin e per the Endo [id number] MD Kathryn Coronel 14 IM 4 [facility] [address] [place] [address] 05/10/2023 09:05:50 05/11/2023 11:45:32 History of migraine 465041323 Z86.[address]Raion avina Hypercholesterolemia 136 78100 E78.00 LDL 109, increase pravastati n to 40mg daily control fatty meal Type 2 estrella betes mellitus without complication 517189430 E11.9 Does see UzrkZ5i was 5.3, on metforminH ome BS better Hypothyroidism 74370191 E03.9 Under care by Endo Essential hypertension 60248339 I10 Controlled [address] same with low salt diet Urinary incontinence 165 075955 R32 Pt scheduled to see Dr.ZaidOn morgan per , Gyn05/10/23W as different medication , not helping hence planning for neuromodul ation vs botox vs PTNS (percutane uos tibial nerve stimulatio n) after cystoscopy and urodynamic s per the Urologist- some already completed and has f/u on 05/18/23On Gemtesa still but still symptomati c (no issue involing memory nor mouth dryness per oxybutynin ) Gastroesop hageal reflux disease without esophagitis 371365526 K21.9 Under care by GI Also being Rxed for IBS Loose weight , avoid soda, spicy stuff, Use medication as prescribed . Sj??gren's syndrome 8390 1003 M35.00 Under care by on cevimeline Obstructiv e sleep apnea syndrome 47293656 G47.33 Under care by -on a new machine lately! Screening for malignant neoplasm of colon 565969623 Z12.11 Morbid obesity 352729654 E66.01 Recommend to loose weight with diet control and exercise.O n phentermin e per the Endo Lateral ep icondylitis of right humerus 5588065485 52135 M77.11 Medrol dose mg- with mealUse the strap and d/s with your Ortho 3Symptomat ically lot better Skin lesion 01128887 L98 .9 hypodermic spots- 'due to allergy and known for several allergy'Do esn't want referral to a Derm at this time-used to see one before. [id number] MD Kathryn Coronel 14 IM [address] [facility] [place] [address] 09/13/2023 08:56:03 09/13/2023 16:08:45 Urinary incontinence 403017017 R32 Pt scheduled to see oxybutynin per , [facility]05/10/23W as different medication , not helping hence planning for neuromodul ation vs botox vs PTNS (percutane uos tibial nerve stimulatio n) after cystoscopy and urodynamic s per the Urologist- some already completed and has f/u on 05/18/23On Gemtesa still but still symptomati c (no issue involing memory nor mouth dryness per oxybutynin )09/13/23I nterstim device helping lately , not much at night! Type 2 estrella betes mellitus without complication 490327787 E11.9 Does see UgayL9n was 5.3, on metforminH ome BS betterOn mounjaro lately 'lowest dose' Gastroesop hageal reflux disease without esophagitis 085062873 K21.9 Under care by GI Also being Rxed for IBS Loose weight , avoid soda, spicy stuff, Use medication as prescribed . Hypothyroidism 89043388 E03.9 Under care by Endo Essential hypertension 46684961 I10 slightly higher, Increase lisinopril to low salt diet Obstructiv e sleep apnea syndrome 01515809 G47.33 Under care by -on a new machine lately! Hypercholesterolemia 136 01329 E78.00 LDL 109, increase pravastati n to 40mg daily control fatty meal Sj??gren's syndrome 8390 1003 M35.00 Under care by on cevimeline Morbid obesity 567540105 E66.01 Recommend to loose weight with diet control and exercise.O n phentermin e per the Endo Administra tion of influenza vaccine 43492506 Z23 no issue before History of migraine 1614 [address]86[address]Raion avina Herpes zoster 0233159 B0 2.9 Rash with hypersensi tive feeling L/buttock area [id number] MD Kathryn Coronel 14 IM [address] [facility] [place] [address] 10/09/2023 15:25:46 10/10/2023 12:33:00 Acute upper respiratory infection 07907652 J06.9 Hydrate well. Use humidifier Take medication as prescribed , If getting worse come in / go to [employer] to back to work note by 10/12/23 [id number] MD Kathryn Vicente 14 OB [address] [facility] [place] [address] 02/29/2024 16:20:18 03/01/2024 08:53:16 Gynecologic examination 26410318 Z01.419 Screening for malignant neoplasm of breast 333497419 Z12.31 Health Concerns Section Related Observation LastModified by Organization Detai ls LastModified Time None Recorded Concern Status LastModified by Organization Details LastModified Time None Recorded Advance Directives Directive N: Payers Encounter Date Sequence Insurance Name Policy Number Policy John Covered Member ID John Member ID Guarantor Name 12/30/2022 1 [employer] (HMO) Jerri A McCance [id number] Jerri A McCance 05/10/2023 1 [employer] ([place] Jerri A McCance [id number] Jerri A McCance 09/13/2023 1 [employer] [place] (HMO) Jerri A McCance [id number] Jerri A McCance 10/09/2023 1 [employer] [place] (H[employer] Jerri A McCance [id number] Jerri A McCance 02/29/2024 1 [employer] [place] (H[employer]) Jerri A McCance [id number] Jerri A McCance Notes Date Note Type Note Provider Name and Address Organization Details Recorded Time 023 text/ht ml Anxiety/DepressionReported bypatient.Quality:symptoms improved Severity:denies suicidal ideations; does not interfere with activities of daily living Duration:stablizing Onset/Timing:gradual Modifying Factors:counselling; medications as directed Associated Symptoms:denies homicidal ideations; mood good; no crying spells; sleeping wellNotes:On sertralineDiabetes F/UReported bypatient.Review finger sticks:fastin-100 Labs:last A1C result: 5.2 05/03/21 @ Endo Associated Symptoms:no weight gain; no weight loss; no dizzinessNotes:Under care by EndoOn metforminGeneric HPI TemplateReported bypatient.Notes:Had stuffy nose feverish 2 days , checked for home covid was positiveDenies SOB chest pain . Sore throat + Also scheduled for L/hip Sx in sep 05 2022 per .08/11/22Wants clearance L/THR scheduled 09/05/22awaiting clearance per Cardio as per last yr- appt next wkdenies exertional chest discomfort SOBW/u yet done12/30/22Had sx -doing wellOn tramadol per her rheumatologistC/o R/elbow pain- 2 months- at times did drop thingsAlso few scratch flor due to cat -also 2 spots on R/palm cat biteHyperlipidemiaReported bypatient.Duration:chronic Control:improving Current Therapy:currently taking: (med as prescribed) Compliance:compliant with diet Complications:no coronary artery disease Risk Factors:diabetes;hypertension;obes ityHypertension F/UReported bypatient.Associated Symptoms:no dizziness; no lightheadedness; no chest pain Lifestyle:regular exercise; limiting/avoiding salt Medications:taking medications as directed; no side effects from medicationObstructive Sleep Apnea F/UReported bypatient.Severity:does not limit daily activities Alleviating factors:relief with CPAP Prior TreatmentCPAP (13.5 cm) Prior opinionneurology ()Notes:Under care by - also being Rxed for migraine and pseudotumor cerebriReflux/GERDReported bypatient.Severity:waking up at night Duration:present 1-4 years Context:non-smoker; no drug/alcohol abuse Alleviating Factors:Famotidine & dicyclomine for IBS too Associated Symptoms:no difficulty swallowing; no weight lossNotes:Under care by GI 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 Gio Austin MD Attn: Accounting,[address] [facility], [place], [address], [place] - [facility] 12/30/2022 13:13:54 023 text/ht ml Anxiety/DepressionReported bypatient.Quality:symptoms improved Severity:denies suicidal ideations; does not interfere with activities of daily living Duration:stablizing Onset/Timing:gradual Modifying Factors:counselling; medications as directed Associated Symptoms:denies homicidal ideations; mood good; no crying spells; sleeping wellNotes:On sertralineDiabetes F/UReported bypatient.Review finger sticks:fastin-100 Labs:last A1C result: 5.3 Associated Symptoms:no weight gain; no weight loss; no dizzinessNotes:Under care by EndoOn metforminGeneric HPI TemplateReported bypatient.Notes:Had stuffy nose feverish 2 days , checked for home covid was positiveDenies SOB chest pain . Sore throat + Also scheduled for L/hip Sx in sep 05 2022 per .08/11/22Wants clearance L/THR scheduled 09/05/22awaiting clearance per Cardio as per last yr- appt next wkdenies exertional chest discomfort SOBW/u yet done12/30/22Had sx -doing wellOn tramadol per her rheumatologistC/o R/elbow pain- 2 months- at times did drop thingsAlso few scratch flor due to cat -also 2 spots on R/palm cat bite05/10/23R/elbow discomfort lot betterHyperlipidemiaReported bypatient.Duration:chronic Control:improving Current Therapy:currently taking: (med as prescribed) Compliance:compliant with diet Complications:no coronary artery disease Risk Factors:diabetes;hypertension;obes ityHypertension F/UReported bypatient.Associated Symptoms:no dizziness; no lightheadedness; no chest pain Lifestyle:regular exercise; limiting/avoiding salt Medications:taking medications as directed; no side effects from medicationObstructive Sleep Apnea F/UReported bypatient.Severity:does not limit daily activities Alleviating factors:relief with CPAP Prior TreatmentCPAP (13.5 cm) Prior opinionneurology ()Notes:Under care by - also being Rxed for migraine and pseudotumor cerebriReflux/GERDReported bypatient.Severity:waking up at night Duration:present 1-4 years Context:non-smoker; no drug/alcohol abuse Alleviating Factors:Famotidine & dicyclomine for IBS too Associated Symptoms:no difficulty swallowing; no weight lossNotes:Under care by GI 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 Gio Austin MD Attn: Accounting,[address] [facility], [place], [address], [facility] - [facility] 05/10/2023 11:25:48 023 text/ht ml Anxiety/DepressionReported bypatient.Quality:symptoms improved Severity:denies suicidal ideations; does not interfere with activities of daily living Duration:stablizing Onset/Timing:gradual Modifying Factors:counselling; medications as directed Associated Symptoms:denies homicidal ideations; mood good; no crying spells; sleeping wellNotes:On sertralineDiabetes F/UReported bypatient.Review finger sticks:fastin-100 Labs:last A1C result: 5.3 Associated Symptoms:no weight gain; no weight loss; no dizzinessNotes:Under care by EndoOn metforminHyperlipidemiaReported bypatient.Duration:chronic Control:improving Current Therapy:currently taking: (med as prescribed) Compliance:compliant with diet Complications:no coronary artery disease Risk Factors:diabetes;hypertension;obes ityHypertension F/UReported bypatient.Associated Symptoms:no dizziness; no lightheadedness; no chest pain Lifestyle:regular exercise; limiting/avoiding salt Medications:taking medications as directed; no side effects from medicationObstructive Sleep Apnea F/UReported bypatient.Severity:does not limit daily activities Alleviating factors:relief with CPAP Prior TreatmentCPAP (13.5 cm) Prior opinionneurology ()Notes:Under care by - also being Rxed for migraine and pseudotumor cerebriRash/Skin Lesion F/UReported bypatient.Location:buttocks (L/buttock, earlier sensitive, now few rash and hurting) Context:no new detergents or skin products; no one else with similar rashNotes:H/o chicken pox beforeSome stress at work, now improving stress wiseReflux/GERDReported bypatient.Severity:waking up at night Duration:present 1-4 years Context:non-smoker; no drug/alcohol abuse Alleviating Factors:Famotidine & dicyclomine for IBS too Associated Symptoms:no difficulty swallowing; no weight lossNotes:Under care by GI 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 Gio Austin MD Attn: Accounting,[address] [place], [address], [facility] 09/13/2023 13:58:58 024 text/ht ml Upper Respiratory SymptomsReported bypatient.Location:chest Quality:productive cough Duration:started 11 days ago Context:no sick contacts Associated Symptoms:no shortness of breath; no wheezing; no fever; no sore throat;yellow sputumNotes:W/u twice for covid ect were neg Patient verbally consented for the phone visit Gio Austin MD Attn: Accounting,[address] [place], [address], [facility] 10/09/2023 16:31:45 024 text/ht ml Annual GYNReported bypatient.Urinary symptoms:complicated incontinence picture, seeing Urology, Dr Youngblood Vulva:No genital lesion Vagina:Normal vaginal discharge Breast:No breast pain; No breast lump; No nipple discharge Current Contraception:Tubal ligation Sexual complaints:No sexual complaints; No pain during intercourse; Normal libido Menopausal Symptoms:No menopausal symptoms; Normal vaginal lubrication Psychological symptoms:No depression; No anxiety; No PMDD Since hip replacement in 2021, pt states she has had uncontrolled urinary leakage. ( Possibly from a nerve buffy at the time of her epidural. (?) Seeing urology, now has an implantable device in back for neuromodulation. (?) Mahamed Cummins MD Attn: Accounting,[address] [place], [id number], [facility] 02/29/2024 16:47:43 OBGyn Episode No OBEpisode recorded.
--- OUTSIDE RECORDS SUMMARY | 2024-10-25 18:15 | XMS_ITS | Referral Summary ---
Author Organization [facility] Address [address] [place] [id number] Care Team Providers Care Technical Support Engineer Name Role Phone Pb Leon MD, Bud Parada Unavailable [phone] Lexie Recinos PT Unavailable Unavailable Vicki Contreras HIDE INSPECTOR AND SORTER Unavailable Unavailable Lindsay Schilling Unavailable Unavailable Jaclyn Toledo HIDE INSPECTOR AND SORTER Unavailable Unavailable Zuhair Castrejon MD Primary Care Provider Kun Mccoy MD Unavailable [phone] Lisset Diggs MD Unavailable Caleb Zacarias MD Unavailable [phone] Jay Combs MD Unavailable Palak Dixon PT Unavailable Unavailable Encounters Date Type Department Care Team Description 10/16/2024 Telephone [facility] [address] [address] Cecelia Kasper MD 10/15/2024 2:35 PM DIVORCE MEDIATOR Lab [address] [address] Acquired hypothyroidism 10/15/2024 2:00 PM DIVORCE MEDIATOR Office Visit [facility] [address] [address] Cecelia Kasper MD Type 2 diabetes mellitus with hyperglycemia, without long-term current use of insulin (HCC) (Primary Dx); Acquired hypothyroidism; Hyperlipidemia associated with type 2 diabetes mellitus (HCC); Hypertension associated with diabetes (HCC); Morbid obesity with BMI of 45.0-49.9, adult (HCC) 10/03/2024 3:00 PM DIVORCE MEDIATOR Office Visit [facility] [address] [place] [address] [address] [id number] Nilam Navas NP Pseudotumor cerebri (Primary Dx); Morbid obesity with BMI of 45.0-49.9, adult (HCC); BMI 45.0-49.9, adult (HCC); History of migraine; Narcolepsy without cataplexy(347.00); Sleep apnea, unspecified type 09/23/2024 1:45 PM DIVORCE MEDIATOR - 09/23/2024 11:59 PM DIVORCE MEDIATOR Hospital Encounter [facility] [id number] [place] [address] Discharge Disposition: Discharge to home or self care from Last 3 Months Allergies Active Allergy Reactions Criticality Noted Date Comments Aspirin Hives,Swelling,Short n ess of breath,Urticaria High 07/19/2017 Clarithromycin Blisters,Other (See comments) High Clindamycin Blisters,Other (See comments) High Adalimumab Hives High 06/25/2019 Hydroxychloroquine Rash Medium Ibuprofen Hives,Swelling,Short n ess of breath High 07/19/2017 Infliximab Shortness of breath,Fever,Headache ,Sweating,Hypotension High 09/03/2020 Levofloxacin Blisters,Other (See comments) High Other Hives Medium 11/29/2018 [facility] sauce-migraines, swelling of throat Peanut Butter Flavor Hives Medium 11/29/2018 Swelling of throat Radish Hives Medium 11/29/2018 Horse radish sause, swelling of throat Azithromycin Hives Medium 05/10/2022 itching Medications sertraline (ZOLOFT) 100 mg tablet Take 1 tablet (100 mg total) by mouth nightly 1 019 Active cevimeline (EVOXAC) 30 mg capsule Take 1 capsule (30 mg total) by mouth 3 (three) times a day Active cyclobenzaprine (FLEXERIL) 10 mg tablet Take 1 tablet (10 mg total) by mouth nightly Active pilocarpine (SALAGEN) 7.5 mg tablet Take 1 tablet (7.5 mg total) by mouth 3 (three) times a day Active abatacept (ORENCIA) 250 mg injection Infuse 10 mL (250 mg total) into a venous catheter every 30 (thirty) days Active blood glucose diagnostic (glucose blood) strip 2 (two) times a day Active albuterol HFA (PROVENTIL HFA,VENTOLIN HFA,PROAIR HFA) 90 mcg/actuation inhaler Inhale 1 puff every 4 (four) hours as needed Active cetirizine (ZyrTEC) 10 mg tablet Take 1 tablet (10 mg total) by mouth as needed for allergies Active predniSONE (DELTASONE) 2.5 mg tablet Take 1 tablet (2.5 mg) by mouth 3 (three) times a day 023 Active lisinopriL (PRINIVIL,ZESTRIL ) 20 mg tablet Take 1 tablet (20 mg total) by mouth 2 (two) times a day Active ergocalciferol (VITAMIN D) 50,000 unit capsule Take 1 capsule (50,000 Units total) by mouth once a week Active carboxymethylcell ulose sodium (REFRESH PLUS OPHT) Administer 1 drop into affected eye(s) as needed Active metFORMIN (GLUCOPHAGE) 500 mg tabletIndications :Type 2 diabetes mellitus with hyperglycemia, without long-term current use of insulin (HCC) Take 1 tablet (500 mg total) by mouth daily with breakfast 90 tablet 3 024 2024 Active traMADoL (ULTRAM) 50 mg tablet Take 1 tablet (50 mg total) by mouth 2 (two) times a day as needed Active acetaZOLAMIDE (DIAMOX) 250 mg tablet TAKE 1 TABLET(250 MG) BY MOUTH TWICE DAILY 60 tablet 1 Active topiramate (TOPAMAX) 50 mg tabletIndications :Migraine Prevention Take 1 tablet (50 mg total) by mouth 2 (two) times a day Take 1/2 tablet twice daily for 2 weeks, then 1 tablet twice daily 60 tablet 025 2024 Active pravastatin (PRAVACHOL) 40 mg tabletIndications :Type 2 diabetes mellitus with hyperglycemia, without long-term current use of insulin (HCC) Take 1 tablet (40 mg total) by mouth nightly 90 tablet 025 Active Mounjaro 5 mg/0.5 mL pen injectorIndicatio ns:Type 2 diabetes mellitus with hyperglycemia, without long-term current use of insulin (HCC) Inject 5 mg under the skin every 7 days 2 mL 025 2024 Active Mounjaro 10 mg/0.5 mL pen injectorIndicatio ns:type 2 diabetes mellitus Inject 10 mg under the skin every 7 days 2 mL 5 025 2024 Active levothyroxine (SYNTHROID) 175 mcg tabletIndications :Acquired hypothyroidism Take 1 tablet (175 mcg total) by mouth daily 90 tablet 3 025 2025 Active ferrous sulfate 325 mg (65 mg of elemental iron) tablet Take 1 tablet (325 mg total) by mouth daily 020 2024 Discontinued rimegepant (NURTEC ODT) tablet,disintegra ting Take 1 tablet (75 mg total) by mouth daily as needed (migraine fare up) 8 tablet 11 023 2024 Discontinued famotidine (PEPCID) 40 mg tablet Take 1 tablet (40 mg total) by mouth daily with dinner 2024 Discontinued Qulipta 60 mg tablet Take 1 tablet by mouth daily 2024 Discontinued dicyclomine (BENTYL) 20 mg tablet TAKE 1 TABLET(20 MG) BY MOUTH EVERY 6 HOURS 360 tablet 1 024 2024 Discontinued levothyroxine (SYNTHROID) 175 mcg tabletIndications :Acquired hypothyroidism Take 1 tablet (175 mcg total) by mouth daily 6 days a week and take half a tablet on Monday 90 tablet 3 024 2024 Discontinued(Jorge jung) pravastatin (PRAVACHOL) 40 mg tabletIndications :Type 2 diabetes mellitus with hyperglycemia, without long-term current use of insulin (HCC) TAKE 1 TABLET(40 MG) BY MOUTH EVERY NIGHT 90 tablet 024 2024 Discontinued Mounjaro 5 mg/0.5 mL pen injectorIndicatio ns:Type 2 diabetes mellitus with hyperglycemia, without long-term current use of insulin (HCC) ADMINISTER 5 MG UNDER THE SKIN EVERY 7 DAYS 6 mL 1 024 2024 Discontinued pravastatin (PRAVACHOL) 40 mg tabletIndications :Type 2 diabetes mellitus with hyperglycemia, without long-term current use of insulin (HCC) TAKE 1 TABLET(40 MG) BY MOUTH EVERY NIGHT 90 tablet 025 2024 Discontinued(R eorder) Active Problems Problem Noted Date Diagnosed Date Epistaxis 04/12/2024 Assessment & Plan (04/12/2024 10:21 AM CDT): Applied nose blowing for one week Start Nasal saline in 48 hours as often as possible Run humidifier in bedroom overnight Follow up in 6 weeks Vitamin D deficiency 03/14/2024 Assessment & Plan (03/14/2024 4:12 PM CDT): Patient on vitamin-D replacement therapy Check levels today and further plans based on it Chronic maxillary sinusitis 03/06/2024 Assessment & Plan (06/10/2024 8:06 AM CDT): Sinus Rinse followed by Flonase 2 sprays into each nostril while looking down over the sink, do not sniff in or blow nose after use for at least 30 minutes at least once daily until first vareal Assessment & Plan (04/12/2024 10:21 AM CDT): Applied nose blowing for one week Start Nasal saline in 48 hours as often as possible Run humidifier in bedroom overnight Follow up in 6 weeks Assessment & Plan (04/02/2024 1:37 PM CDT): Continue nasal 3 times daily Avoid nose blowing for one more week Finish antibiotics Proceed with Dental appointments for tooth removal Assessment & Plan (03/06/2024 4:25 PM CDT): Endoscopic Right Maxillary Antrostomy with tissue removal and possible Fungal ball removal Risks and complications include anesthesia, bleeding, infection, injury to surrounding structures including brain with csf leak, eyes with vision changes, nasal mucosa, atrophic rhinitis, benign versus malignant pathology, no guarantee that sense of smell will return, need for further surgery. Personal interpretation of the CT head: right maxillary sinus with near complete opacification, possible fungal ball, all other sinuses were clear, Right OMC obstruction Narcolepsy without cataplexy(347.00) 12/27/2023 Rheumatoid arthritis without rheumatoid factor, unspecified site 12/17/2023 OAB (overactive bladder) 06/08/2023 Tubular adenoma of colon 05/18/2023 Urinary incontinence 04/28/2023 Irritable bowel syndrome 12/30/2022 Hyperlipidemia associated with type 2 diabetes m judiitus 03/12/2021 Assessment & Plan (10/15/2024 2:42 PM DIVORCE MEDIATOR): Continue statin therapy Assessment & Plan (03/14/2024 4:11 PM CDT): Continue statin therapy Assessment & Plan (08/15/2023 2:47 PM DIVORCE MEDIATOR): Chronic problem. On statin therapy, no changes. Assessment & Plan (11/28/2022 3:53 PM DIVORCE MEDIATOR): Continue statin therapy Assessment & Plan (05/30/2022 8:11 AM CDT): Patient on statin therapy Tolerating well Assessment & Plan (05/03/2021 10:22 AM CDT): Patient on statin therapy Tolerating well Leukopenia 11/26/2020 Type 2 diabetes mellitus wit h hyperglycemia, without long-term current use of insulin 09/03/2020 Assessment & Plan (10/15/2024 2:43 PM DIVORCE MEDIATOR): Chronic, overall well controlled A1c 5.7%, at goal Patient willing to go back on Mounjaro Start Mounjaro 5 mg subQ weekly for 4 weeks then increase to 10 mg subQ weekly For now continue current dose of metformin If Mounjaro does not help with cravings then plan to switch to Ozempic Assessment & Plan (03/14/2024 4:11 PM CDT): Chronic, overall well controlled A1c 5.5% Decrease metformin to 500 mg oral daily Continue Mounjaro 5 mg subQ weekly Recommend annual dilated eye exam Labs today Follow-up in 6 months Assessment & Plan (08/15/2023 2:59 PM DIVORCE MEDIATOR): Chronic problem, at goal but with more craving issues and wants to work on weight loss. Will see if Mounjaro is covered. Rx sent for 2.5 mg. If she can get it and is tolerating well, let us know and we can increase to 5 mg weekly. AEs discussed. She can probably stop metformin but prefers to stay with it at this time. Schedule eye exam. Assessment & Plan (11/28/2022 3:51 PM DIVORCE MEDIATOR): Chronic, progressive improvement A1c 4.8% Advised to decrease metformin to 500 mg oral twice a day with meals Continue Trulicity 1.5 mg subQ weekly Counseled on diet and exercise Recommend to increase physical activity and work on healthy weight loss goal Advised to include resistance training Assessment & Plan (05/30/2022 8:12 AM CDT): Chronic, overall well controlled A1c 5.4% Counseled on diet and exercise Continue current metformin dose Start Trulicity 0.75 mg subQ weekly for 2 weeks then increase to 1.5 mg subQ weekly Advised to work on healthy weight loss Daily foot care Recommend annual dilated exam Follow-up in 6 Months Assessment & Plan (05/03/2021 10:20 AM CDT): Chronic, overall well controlled A1c today 5.2% Continue oral metformin twice a day Consult on diet and exercise Follow-up in 1 year Assessment & Plan (01/02/2021 10:48 AM CDT): Improving BS A1c today - 5.6 % Reviewed patient blood sugar Improving on treatment Advised to c/w metformin to 1000 mg oral twice a daily Continue to work on portion control carb controlled diet Increase physical activity Keep checking blood sugars at home Follow-up in 3 months Assessment & Plan (11/06/2020 2:22 AM DIVORCE MEDIATOR): Sugars controlled. Patient is on metformin at home. Low-dose sliding scale. Assessment & Plan (09/05/2020 5:28 PM DIVORCE MEDIATOR): Newly diagnosed Worsening BS A1c - 11.1 % Reviewed patient blood sugar Improving on treatment Advised to increase metformin to 1000 mg oral twice a day Continue current dose of Lantus in stop up if blood sugars are less than 90 Continue to work on portion control carb controlled diet Increase physical activity Keep checking blood sugars at home Follow-up in 2 months Hypertension associated with diabetes 06/25/2020 Assessment & Plan (10/15/2024 2:42 PM DIVORCE MEDIATOR): Chronic, improving control Continue lisinopril Assessment & Plan (03/14/2024 4:11 PM CDT): Chronic, improving control Continue lisinopril Assessment & Plan (08/15/2023 2:58 PM DIVORCE MEDIATOR): Controlled on lisinopril. No changes. Assessment & Plan (11/28/2022 3:53 PM DIVORCE MEDIATOR): Chronic, improving control Continue lisinopril Assessment & Plan (05/30/2022 8:11 AM CDT): Chronic, well controlled Continue current medication regimen Assessment & Plan (05/03/2021 10:22 AM CDT): Chronic, well controlled Continue current medication regimen Assessment & Plan (03/12/2021 11:40 AM CDT): Controlled on current meds. Assessment & Plan (11/06/2020 2:23 AM DIVORCE MEDIATOR): Blood pressures are low normal at this time. Will hold Lasix for now. Lisinopril has been resumed with hold parameters. Will continue to monitor. Gastroesophageal reflux disease without esophagi tis 06/25/2020 History of migraine 06/25/2020 Mixed anxiety and depressive disorder 06/25/2020 Assessment & Plan (11/06/2020 2:23 AM DIVORCE MEDIATOR): Continue home medications Peripheral venous insufficiency 06/25/2020 Pseudotumor cerebri 09/10/2019 Bronchitis 01/17/2019 Assessment & Plan (01/17/2019 6:39 PM CDT): Take your antibiotic as directed You may take a cough suppressant to calm your cough (dayquil, delsym, or nyquil) If your cough is productive or you have tight chest congestion with thick mucus- you can use a cough expectorant like Mucinex Benadryl/Zyrtec can be used to dry up a runny nose along with a nasal spray like azelastine or mometasone.. The use of Chlorpheniramine (antihistamine) plus pseudoephedrine (decongestant) has been proven to be helpful. Avoid environmental triggers and allergen Drink plenty of fluids and get plenty of rest Tylenol/Motrin for pain/fever If you are not better in the next 5 days, follow up w PCP. Iron deficiency anemia due to chronic blood loss 03/20/2018 Morbid obesity 03/20/2018 Lupus anticoagulant positive 12/01/2017 Headache(784.0) 05/26/2017 Sjogren's disease 05/25/2017 Sleep apnea 05/25/2017 Jaw pain 05/25/2017 Encounter for preoperative a ssessment for noncoronary cardiac surgery 05/25/2017 Assessment & Plan (03/12/2021 11:40 AM CDT): Patient is cleared for hip replacement surgery. Right upper quadrant abdominal pain 05/23/2017 Acquired hypothyroidism 03/09/2017 Assessment & Plan (10/15/2024 2:41 PM DIVORCE MEDIATOR): Chronic, unknown status Patient currently on levothyroxine 175 mcg oral daily Recheck thyroid function test today and further plans based on it Assessment & Plan (03/14/2024 4:10 PM CDT): Chronic, unknown status Patient currently on levothyroxine 175 mcg oral daily Recheck thyroid function test and further plans based on it Assessment & Plan (08/15/2023 2:47 PM DIVORCE MEDIATOR): Clinically and biochemically euthyroid. No medication changes. Assessment & Plan (11/28/2022 3:52 PM DIVORCE MEDIATOR): Continue continue current dose of levothyroxine therapy Last TSH 05/2022 within normal Assessment & Plan (05/30/2022 8:10 AM CDT): Patient currently on levothyroxine 175 mg oral daily Patient taking her medication every day on empty stomach Recheck thyroid function test today and further plans based on thyroid lab results Assessment & Plan (05/03/2021 10:20 AM CDT): Patient currently on levothyroxine 175 mg oral daily Patient taking her medication every day on empty stomach Recheck thyroid function test today and further plans based on thyroid lab results Assessment & Plan (01/02/2021 10:47 AM CDT): Reviewed pt recent thyroid lab results Worsening Iatrogenic hyperthyroidism , due to pt weight loss Decrease Levothyroxine To 200 mcg oral daily Instructions for taking levothyroxine Brand name is preferred Take thyroid pill all by itself Take thyroid pill one hour before food or 2 to 3 hours after food Heat, humidity, and direct sunlight will cause a loss of potency Never store thyroid pill in the bathroom The medication should be taken daily. If one or more pills are missing in a week, they can be taken all together at once, making sure at the end of the week, 7 tabs have been taken. Assessment & Plan (11/06/2020 2:21 AM DIVORCE MEDIATOR): Continue levothyroxine Assessment & Plan (09/05/2020 5:26 PM DIVORCE MEDIATOR): Reviewed pt recent thyroid lab results Advise to c/w Levothyroxine 250 mcg oral daily Instructions for taking levothyroxine Brand name is preferred Take thyroid pill all by itself Take thyroid pill one hour before food or 2 to 3 hours after food Heat, humidity, and direct sunlight will cause a loss of potency Never store thyroid pill in the bathroom The medication should be taken daily. If one or more pills are missing in a week, they can be taken all together at once, making sure at the end of the week, 7 tabs have been taken. Assessment & Plan (03/24/2020 9:40 AM CDT): Reviewed pt recent thyroid lab results Based on that advise to increase Levothyroxine to 250 mcg oral daily Recheck TSH In 3 months Follow up in 6 months Instructions for taking levothyroxine Brand name is preferred Take thyroid pill all by itself Take thyroid pill one hour before food or 2 to 3 hours after food Heat, humidity, and direct sunlight will cause a loss of potency Never store thyroid pill in the bathroom The medication should be taken daily. If one or more pills are missing in a week, they can be taken all together at once, making sure at the end of the week, 7 tabs have been taken. Assessment & Plan (09/10/2019 9:31 AM DIVORCE MEDIATOR): Reviewed pt recent thyroid lab results Based on that advise to increase Levothyroxine to 225 mcg oral daily Recheck TSH In 3 months Follow up in 6 months Instructions for taking levothyroxine Brand name is preferred Take thyroid pill all by itself Take thyroid pill one hour before food or 2 to 3 hours after food Heat, humidity, and direct sunlight will cause a loss of potency Never store thyroid pill in the bathroom The medication should be taken daily. If one or more pills are missing in a week, they can be taken all together at once, making sure at the end of the week, 7 tabs have been taken. Assessment & Plan (06/17/2019 12:03 AM CDT): C/w Levothyroxine 200 mcg oral daily Recheck TSH Instructions for taking levothyroxine Brand name is preferred Take thyroid pill all by itself Take thyroid pill one hour before food or 2 to 3 hours after food Heat, humidity, and direct sunlight will cause a loss of potency Never store thyroid pill in the bathroom The medication should be taken daily. If one or more pills are missing in a week, they can be taken all together at once, making sure at the end of the week, 7 tabs have been taken. Assessment & Plan (04/14/2019 8:03 PM CDT): Reviewed recent TSH - 10 Increase Levothyroxine to 200 mcg oral daily Recheck TSH in 3 months Instructions for taking levothyroxine Brand name is preferred Take thyroid pill all by itself Take thyroid pill one hour before food or 2 to 3 hours after food Heat, humidity, and direct sunlight will cause a loss of potency Never store thyroid pill in the bathroom The medication should be taken daily. If one or more pills are missing in a week, they can be taken all together at once, making sure at the end of the week, 7 tabs have been taken. Assessment & Plan (03/14/2018 5:42 PM CDT): Reviewed recent TFT from November 2017 - WNL Refill levothyroxine script for one year - advised to follow up in one year Instructions for taking levothyroxine Brand name is preferred Take thyroid pill all by itself Take thyroid pill one hour before food or 2 to 3 hours after food Heat, humidity, and direct sunlight will cause a loss of potency Never store thyroid pill in the bathroom The medication should be taken daily. If one or more pills are missing in a week, they can be taken all together at once, making sure at the end of the week, 7 tabs have been taken. Assessment & Plan (03/09/2017 5:18 PM CDT): - advise to increase Levothyroxine to 175 mcg oral daily - recheck blood work in 2 months - advise to increase physical activity - cut back on total calorie to at least 500 eugenie day - follow up in one year Instructions for taking levothyroxine Brand name is preferred Take thyroid pill all by itself Take thyroid pill one hour before food or 2 to 3 hours after food Heat, humidity, and direct sunlight will cause a loss of potency Never store thyroid pill in the bathroom The medication should be taken daily. If one or more pills are missing in a week, they can be taken all together at once, making sure at the end of the week, 7 tabs have been taken. Morbid obesity with BMI of 45.0-49.9, adult 05/2017 Assessment & Plan (10/15/2024 2:42 PM DIVORCE MEDIATOR): Encouraged to keep working on healthy lifestyle habits Assessment & Plan (03/14/2024 4:11 PM CDT): Chronic, trouble losing weight Weight up and down Increased cravings Try topiramate XR 25 oral daily Advised patient to work on her cravings by replacing with healthy alternate food choices when eating Assessment & Plan (11/28/2022 3:51 PM DIVORCE MEDIATOR): Chronic, progressively improving Lost up to 32 lb since May 2022 Counseled on diet and exercise Advised patient to include some resistance training and muscle strengthening exercises Continue oral phentermine Assessment & Plan (05/30/2022 8:13 AM CDT): Chronic, worsening Discussed about healthy lifestyle habits advise to work on healthy diet, avoid processed foods , increase vegetables and protein and cut back on carb portions and also avoid fruit juices and regular soda and desserts Increase physical activity , recommend at least 150 min of aerobic activity per week and include resistance training 2 x weekly - restart oral Phentermine Assessment & Plan (05/03/2021 10:20 AM CDT): Counseled on diet and exercise Assessment & Plan (01/02/2021 10:50 AM CDT): Chronic, improving with treatment and lifestyle modifications Discussed about healthy lifestyle habits advise to work on healthy diet, avoid processed foods , increase vegetables and protein and cut back on carb portions and also avoid fruit juices and regular soda and desserts Increase physical activity , recommend at least 150 min of aerobic activity per week and include resistance training 2 x weekly - continue Phentermine therapy Assessment & Plan (09/05/2020 5:27 PM DIVORCE MEDIATOR): Chronic, pt loosing weight due to worsening DM Discussed about healthy lifestyle habits advise to work on healthy diet, avoid processed foods , increase vegetables and protein and cut back on carb portions and also avoid fruit juices and regular soda and desserts Increase physical activity , recommend at least 150 min of aerobic activity per week and include resistance training 2 x weekly C/w Phentermine therapy Assessment & Plan (03/24/2020 9:40 AM CDT): Improving slowly with treatment and lifestyle modifications Counseled again on healthy dietary habits, portion controlled diet Eat log of Veg, and moderate fresh fruit, and cut back on processed foods Advised to eat lean meat Avoid sugary stuff and unhealthy snacking Advised to increase physical activity and also include resistance training Discussed about weight loss meds C/w phentermine Assessment & Plan (09/10/2019 9:31 AM DIVORCE MEDIATOR): Unchanged treatment and lifestyle modifications Counseled again on healthy dietary habits, portion controlled diet Eat log of Veg, and moderate fresh fruit, and cut back on processed foods Advised to eat lean meat Avoid sugary stuff and unhealthy snacking Advised to increase physical activity and also include resistance training Discussed about weight loss meds C/w phentermine Assessment & Plan (06/17/2019 12:04 AM CDT): Improving with treatment and lifestyle modifications Counseled again on healthy dietary habits, portion controlled diet Eat log of Veg, and moderate fresh fruit, and cut back on processed foods Advised to eat lean meat Avoid sugary stuff and unhealthy snacking Advised to increase physical activity and also include resistance training Discussed about weight loss meds C/w phentermine Assessment & Plan (04/14/2019 8:01 PM CDT): Worsening , pt struggling to loose weight Counseled again on healthy dietary habits, portion controlled diet Eat log of Veg, and moderate fresh fruit, and cut back on processed foods Advised to eat lean meat Avoid sugary stuff and unhealthy snacking Advised to increase physical activity and also include resistance training Discussed about weight loss meds Start phentermine - discussed about mechanism of action and possible risk and benefits and side effects Assessment & Plan (03/14/2018 5:42 PM CDT): Obesity is worsening. Discussed the patient's BMI. The BMI is above average; BMI management plan is completed. General weight loss/lifestyle modification strategies discussed (elicit support from others; identify saboteurs; non-food rewards, etc). Behavioral treatment: stress management. Diet interventions: moderate (500 kCal/d) deficit diet. Informal exercise measures discussed, e.g. taking stairs instead of elevator. Regular aerobic exercise program discussed. - advise to work on healthy diet, avoid processed foods , increase vegetables and protein and cut back on unhealthy carb And work on portions and also avoid fruit juices and regular soda and desserts ?? discussed about Bariatric surgery - and gave referral information Assessment & Plan (03/09/2017 5:21 PM CDT): Obesity is worsening. Discussed the patient's BMI. The BMI is above average; BMI management plan is completed. General weight loss/lifestyle modification strategies discussed (elicit support from others; identify saboteurs; non-food rewards, etc). Behavioral treatment: stress management. Diet interventions: moderate (500 kCal/d) deficit diet. Informal exercise measures discussed, e.g. taking stairs instead of elevator. Regular aerobic exercise program discussed. BMI 45.0-49.9, adult 03/09/2017 Obstructive sleep apnea 03/09/2017 Assessment & Plan (11/06/2020 2:23 AM DIVORCE MEDIATOR): Patient wearing her home CPAP Assessment & Plan (03/09/2017 5:21 PM CDT): Pt. Recently diagnosed with severe sleep apnea - pt. Cannot afford to be on CPAP machine - strongly advised to get on CPAP machine - discussed the risks of untreated sleep apnea and benefits of getting treated. Elevated liver enzymes 03/09/2017 Assessment & Plan (03/09/2017 5:25 PM CDT): Following with Dr. Garret CONNELL ( Gi) Resolved Problems Problem Noted Date Diagnosed Date Resolved Date Primary osteoarthritis of left hip 08/29/2022 07/04/2023 Overview (08/29/2022): Added automatically from request for surgery [id number] Abnormal ECG 03/12/2021 07/04/2023 Assessment & Plan (03/12/2021 11:40 AM CDT): ECG shows LAFB with RBBB. Echo shows normal LV function. No further testing required. Weakness of both lower extremities 11/05/2020 07/04/2023 Assessment & Plan (11/06/2020 2:23 AM DIVORCE MEDIATOR): Patient seen by Neurology. Workup per Neurology. Fall precautions. Patient may become anxious for MRI, will order 1 time dose of Ativan to be given p.r.n. 30 minutes prior to MRI. 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 03/23/2017 07/04/2023 Immunizations Name Administration Dates Next Due Influenza, Unspecified 08/02/2022 Pfizer SARS-CoV-2 Monovalent Vaccination (12+ Yrs) PURPLE 09/18/2021 Tdap 07/16/2023 Social History Tobacco Use Types Packs/Day Years Used Date Smoking Tobacco: Former Cigarettes Smokeless Tobacco: Never Tobacco Cessation:Counseling Given: Not Answered Alcohol Use Standard Drinks/Week Comments No 0 (1 standard drink = 0.6 oz pur e alcohol) AUDIT-C Answer Date Recorded Q1: How often do you have a drink containing alcohol? Never 03/28/2024 Q2: How many drinks containi ng alcohol do you have on a typical day when you are drinking? Patient does not drink Q3: How often do you have si x or more drinks on one occasion? Never 03/28/2024 PHQ-2 Answer Date Recorded PHQ-2 Total Score (If total score is 3 or more points, staff should administer the PHQ-9) 2 03/14/2024 Personal Safety Answer Date Recorded Have you ever been in or are you currently in a harmful physical or emotional relationship or is someone making you feel afraid or unsafe? Denies 03/28/2024 Comments No Sex and Gender Information Value Date Recorded Sex Assigned at Not on file Legal Sex Female 6:23 PM DIVORCE MEDIATOR Gender Identity Female 02/27/2020 1:04 PM CDT Sexual Orientation Not on file Last Filed Vital Signs Vital Sign Reading Time Taken Comments Blood Pressure 126/80 10/15/2024 2:13 PM DIVORCE MEDIATOR Pulse 80 10/15/2024 2:13 PM DIVORCE MEDIATOR Temperature 37.4 ??C (99.4 ??F) 05/10/2024 6:06 PM CD T Respiratory Rate 16 10/15/2024 2:13 PM DIVORCE MEDIATOR Oxygen Saturation 98% 10/03/2024 3:01 PM DIVORCE MEDIATOR Inhaled Oxygen Concentration - - Weight 127 kg (280 lb) 10/15/2024 2:13 PM DIVORCE MEDIATOR Height 166.4 cm (5' 5.5 ) 10/15/2024 2:13 PM DIVORCE MEDIATOR Body Mass Index 45.89 10/15/2024 2:13 PM DIVORCE MEDIATOR Plan of Treatment Not on file Medical Devices Implanted Type Area Linseed Cake Trimmer Device Identifier Shelf Expiration Date Model / Serial / Lot [employer] [id number] [place] 56mm Sector Hip Shell Acetabular Gription Sterile Latex Free - [id number] Implanted:Qty: 1 on 03/15/2021 by Caleb Zacarias MD at [facility] Right: Hip [employer] 01/29/2031 [id number] / / [id number] [employer] [id number] Aetabular Cup Hip [place] Dm 56 49 - [id number] Implanted:Qty: 1 on 03/15/2021 by Caleb Zacarias MD at [facility] Right: Hip [employer] 11/29/2030 [id number] / / [id number] [employer] 1217-35-500 [place] 6.5mm 35mm Acetabular Cancellous Screw Bone Sterile - [id number] Implanted:Qty: 1 on 03/15/2021 by Caleb Zacarias MD at [facility] Right: Hip [employer] 01/29/2031 1217-35-500 / / [id number] [employer] [id number] Actis L107 Mm Collar Hip 6 High Offset Stem Femoral - [id number] Implanted:Qty: 1 on 03/15/2021 by Caleb Zacarias MD at [facility] Right: Hip [employer] 11/29/2030 [id number] / / [id number] [employer] [id number] Liner Acetabular Bi Mentum Polyethylene Od49mm Id28mm Femoral Proximal - [id number] Implanted:Qty: 1 on 03/15/2021 by Caleb Zacarias MD at [facility] Right: Hip [employer] 07/01/2024 [id number] / / [id number] [employer] [id number] Articul/Tonny 28mm Cementless Hip +1.5mm 12/14 Taper Head Femoral Latex Free - [id number] Implanted:Qty: 1 on 03/15/2021 by Caleb Zacarias MD at [facility] Right: Hip [employer] 12/30/2025 [id number] / / [id number] [employer] Articul/Tonny 28mm Cementless Hip +1.5mm 12/14 Taper Head Femoral Latex Free [id number] - [id number] Implanted:Qty: 1 on 09/05/2022 by Caleb Zacarias MD at [facility] [employer] [id number] 05/01/2026 [id number] / / [id number] [employer] Actis L107 Mm Collar Hip 6 High Offset Stem Femoral [id number] - [id number] Implanted:Qty: 1 on 09/05/2022 by Caleb Zacarias MD at [facility] [employer] [id number] 06/01/2032 [id number] / / [id number] [employer] Bi Mentum 47mm 28mm Femoral Proximal Liner Acetabular [id number] - [id number] Implanted:Qty: 1 on 09/05/2022 by Caleb Zacarias MD at [facility] Left: Hip [employer] [id number] 01/29/2026 [id number] / / [id number] [employer] Liner Aetabular Cup Hip [place] Dm 54 47 [id number] - [id number] Implanted:Qty: 1 on 09/05/2022 by Caleb Zacarias MD at [facility] [employer] [id number] 03/31/2031 [id number] / / [id number] [employer] [place] 54mm Sector Hip Shell Acetabular Gription Sterile Latex Free [id number] - [id number] Implanted:Qty: 1 on 09/05/2022 by Caleb Zacarias MD at [facility] [employer] [id number] 07/01/2032 [id number] / / [id number] [employer] [place] 6.5mm 35mm Acetabular Cancellous Screw Bone Sterile 1217-35-500 - [id number] Implanted:Qty: 1 on 09/05/2022 by Caleb Zacarias MD at [facility] [employer] [id number] 07/01/2032 1217-35-500 / / [id number] Procedures Procedure Name Priority Date/Time Associated Diagnosis Comments THYROID FUNCTION CASCADE Routine 10/15/2024 3:02 PM DIVORCE MEDIATOR Acquired hypothyroidism POCT HEMOGLOBIN A1C Routine 10/15/2024 2 :15 PM DIVORCE MEDIATOR Type 2 diabetes mellitus with hyperglycemia, without long-term current use of insulin (HCC) POCT GLUCOSE Routine 10/15/2024 2:15 PM DIVORCE MEDIATOR Type 2 diabetes mellitus with hyperglycemia, without long-term current use of insulin (HCC) EGFR Routine 09/23/2024 8:33 AM DIVORCE MEDIATOR DIFFERENTIAL AUTO Routine 09/23/2024 8:3 3 AM DIVORCE MEDIATOR COMPREHENSIVE METABOLIC PANEL Routine 09/23/2024 8:33 AM DIVORCE MEDIATOR CBC WITH AUTO DIFFERENTIAL Routine 09/23/2024 8:33 AM DIVORCE MEDIATOR SCREENING MAMMOGRAM BILATERAL [place] Schedule Routine, Read Routine (OP Routine) 04/05/2024 7:46 AM CDT Encounter for screening mammogram for malignant neoplasm of breast LIPID PANEL Routine 03/14/2024 3:44 PM CDT Type 2 diabetes mellitus with hyperglycemia, without long-term current use of insulin (CMS/HCC) (HCC) Hyperlipidemia associated with type 2 diabetes mellitus (HCC) ALBUMIN CREATININE RATIO, URINE Routine 03/14/2024 3:44 PM CDT Type 2 diabetes mellitus with hyperglycemia, without long-term current use of insulin (CMS/HCC) (HCC) Hypertension associated with diabetes (HCC) DIABETES EYE EXAM Routine 12/02/2023 10:37 AM DIVORCE MEDIATOR COLONOSCOPY 06/14/2023 1:56 PM CDT HEPATITIS PANEL, ACUTE Routine 09/29/2020 9:30 AM DIVORCE MEDIATOR Leukopenia, unspecified type from Last 3 Months or Most Recently Relevant to Health Maintenance Results * Thyroid Function [place] (10/15/2024 3:02 PM DIVORCE MEDIATOR) TSH 0.53 0.30 - 4.20 mcIUnit/mL Blood 10/15/2024 3:02 PM DIVORCE MEDIATOR 10/15/2024 9:00 PM DIVORCE MEDIATOR Cecelia Chandra MD LAB BLOOD ORDERABLE S Final Result [facility] [id number] Department [place] [address] * POCT hemoglobin A1c (10/15/2024 2:15 PM DIVORCE MEDIATOR) Hemoglobin A1C, POC 5.7 4.0 - 5.6 % Blood 10/15/2024 2:15 PM DIVORCE MEDIATOR Cecelia Chandra MD POINT OF CARE TEST ORDERABLES Final Result * POCT glucose (10/15/2024 2:15 PM DIVORCE MEDIATOR) Glucose Blood, POC 140 mg/dL Blood 10/15/2024 2:15 PM DIVORCE MEDIATOR Cecelia Chandra MD POINT OF CARE TEST ORDERABLES Final Result * eGFR (09/23/2024 8:33 AM DIVORCE MEDIATOR) eGFR 85 >=60 mL/min/1. 73 m2 Comment: Interpretive Data Reference Interval Normal ?>/= 90 mL/min/1.73m2 Mildly decreased* ? 60 - 89 mL/min/1.73m2 Mildly to moderately decreased ?45 - 59 mL/min/1.73m2 Moderately to severely decreased ??30 - 44 mL/min/1.73m2 Severely decreased ?15 - 29 mL/min/1.73m2 Kidney Failure ?< 15 ??mL/min/1.73m2 *Relative to young adult level Estimated glomerular filtration rate is determined by the 2020 CKD-EPI equation recommended by the National Kidney Foundation (A Unifying Approach to GFR Estimation: Recommendations of the NKF-ASK Task Force on Reassessing the Inclusion of Race in Diagnosing Kidney Disease, JASN 2020). The CKD-EPI equation should not be used for patients with unstable renal function and has not been validated in children and those over 70. Current interpretive data was last reviewed 2021. Blood 09/23/2024 8:33 AM DIVORCE MEDIATOR 09/23/2024 2:59 PM DIVORCE MEDIATOR us Lisset Diggs MD LAB BLOOD ORDERABLES Final Resul t [facility] [address] [place] [address] * (ABNORMAL) Differential, auto (09/23/2024 8:33 AM DIVORCE MEDIATOR) Neutrophil abs 1.7 1.5 - 6.5 K/cumm Imm gran abs 0.0 0.0 - 0.1 K/cumm [facility] Lymphocyte abs 0.6(L) 0.8 - 3.3 K/cumm [facility] Monocyte abs 0.2 0.2 - 0.8 K/cumm [facility] Eosinophil abs 0.0 0.0 - 0.5 K/cumm [facility] Basophil abs 0.0 0.0 - 0.1 K/cumm [facility] Neutrophil pct 67.0 % [facility] Comment: Interpretive Data Percent cell count reference ranges are not reported, since discordance with absolute values may lead to misinterpretation of CBC data. Current Interpretive Data was last revised on 2018. Imm gran pct 0.4 % [facility] Comment: Interpretive Data Percent cell count reference ranges are not reported, since discordance with absolute values may lead to misinterpretation of CBC data. Current Interpretive Data was last revised on 2018. Lymphocyte pct 23.3 % [facility] Comment: Interpretive Data Percent cell count reference ranges are not reported, since discordance with absolute values may lead to misinterpretation of CBC data. Current Interpretive Data was last revised on 2018. Monocyte pct 9.3 % [facility] Comment: Interpretive Data Percent cell count reference ranges are not reported, since discordance with absolute values may lead to misinterpretation of CBC data. Current Interpretive Data was last revised on 2018. Eosinophil pct 0.0 % [facility] Comment: Interpretive Data Percent cell count reference ranges are not reported, since discordance with absolute values may lead to misinterpretation of CBC data. Current Interpretive Data was last revised on 2018. Basophil pct 0.0 % [facility] Comment: Interpretive Data Percent cell count reference ranges are not reported, since discordance with absolute values may lead to misinterpretation of CBC data. Current Interpretive Data was last revised on 2018. Blood 09/23/2024 8:33 AM DIVORCE MEDIATOR 09/23/2024 2:18 PM DIVORCE MEDIATOR us Lisset Diggs MD LAB BLOOD ORDERABLES Final Resul t [facility] [address] Department [place] [address] * (ABNORMAL) CBC with auto differential (09/23/2024 8:33 AM DIVORCE MEDIATOR) WBC 2.6(L) 3.8 - 9.9 K/cumm Hgb 12.9 11.9 - 15.5 g/dL [facility] Hct 42.7 35.6 - 45.5 % [facility] Plt 145(L) 150 - 400 K/cumm [facility] MPV 10.0 9.1 - 12.3 fL [facility] RBC 4.61 3.90 - 5.20 M/cumm [facility] MCV 92.6 81.3 - 96.4 fL [facility] MCH 28.0 27.1 - 33.3 pg [facility] MCHC 30.2(L) 32.3 - 35.7 g/dL [facility] RDW CV 14.9 11.1 - 14.9 % [facility] RDW SD 50.1(H) 35.7 - 48.1 fL [facility] NRBC abs 0.00 0.00 - 0.01 K/cumm [facility] Blood 09/23/2024 8:33 AM DIVORCE MEDIATOR 09/23/2024 2:18 PM DIVORCE MEDIATOR us Lisset Diggs MD LAB BLOOD ORDERABLES Final Resul t [facility] [address] Department [place] [address] * (ABNORMAL) Comprehensive metabolic panel (09/23/2024 8:33 AM DIVORCE MEDIATOR) Sodium 141 135 - 145 mmol/L Potassium, pl 3.7 3.3 - 4.9 mmol/L [facility] Chloride 111(H) 97 - 110 mmol/L [facility] CO2 21(L) 22 - 32 mmol/L [facility] Anion gap 9 2 - 15 mmol/L [facility] BUN 14 6 - 25 mg/dL [facility] Creatinine 0.82 0.60 - 1.10 mg/dL [facility] Glucose 90 70 - 199 mg/dL [facility] Comment: Interpretive Data Fasting glucose >/= 126 mg/dl is diagnostic for diabetes. ?? Fasting is defined as no caloric intake for at least 8 hours. Fasting glucose between 100 mg/dl to 125 mg/dl is diagnostic of prediabetes. In a patient with classic symptoms of hyperglycemia or hyperglycemic crisis, a random glucose >/= 200 mg/dl is diagnostic for diabetes. In the absence of unequivocal hyperglycemia, results should be confirmed by repeat testing. The classification and Diagnosis of Diabetes Diabetes Care 2021; 46: S19-S40. Current interpretive data was last revised 2022. Calcium 8.6 8.5 - 10.3 mg/dL [facility] Bilirubin, total 0.2 0.1 - 1.2 mg/dL [facility] Protein, pl 7.3 6.5 - 8.5 g/dL [facility] Albumin 3.9 3.5 - 5.0 g/dL [facility] Alk phos 106 40 - 130 Units/L [facility] ALT 20 7 - 45 Units/L [facility] AST 17 10 - 45 Units/L [facility] Blood 09/23/2024 8:33 AM DIVORCE MEDIATOR 09/23/2024 2:19 PM DIVORCE MEDIATOR us Lisset Diggs MD LAB BLOOD ORDERABLES Final Resul t [facility] [address] Department [place] [address] * Screening Mammogram Bilateral [place] (04/05/2024 7:46 AM CDT) Anatomical Region Laterality Modality Breast Bilateral Mammography 04/05/2024 8:39 AM CDT Impressions 04/05/2024 8:39 AM CDT There is no mammographic evidence of malignancy. A 1 year screening mammogram is recommended. BI-RADS: 2 - Benign. The patient has been or will be contacted. The patient will be entered into a reminder system with a target due date of 1 year for her next mammogram. Electronically signed by: Kim Brian M.D. Narrative 04/05/2024 8:39 AM CDT EXAMINATION: SCREENING MAMMOGRAM BILATERAL [place] ORDERING HEALTHCARE PROVIDER: MAHAMED CUMMINS HISTORY: Routine screening mammography. COMPARISON: ??04/29/2022, 07/20/2021 TECHNIQUE: CC and MLO views of the bilateral breasts were obtained with digital technique using breast tomosynthesis with C view. Computer aided detection was utilized. FINDINGS: DENSITY: The tissue of the bilateral breasts is almost entirely fatty. BREASTS: There are stable scattered benign-appearing calcifications bilaterally. ??There are no suspicious masses, suspicious calcifications, or other suspicious findings in either breast. There has been no suspicious interval change. Mahamed Cummins MD IMG MAMMO PROCEDURES F inal Result * Albumin Creatinine Ratio, Urine (03/14/2024 3:44 PM CDT) Albumin Ur 13.7 mg/L Comment: Interpretive Data No reference range established. Current interpretive data was last revised 2019. Creatinine Ur 111.2 mg/dL [facility] Comment: Interpretive Data No reference range established. Current interpretive data was last revised 2019. Albumin Creatinine Ratio, Ur 12 1 - 29 mg/g [facility] Urine 03/14/2024 3:44 PM CDT 03/14/2024 6:39 PM CDT Cecelia Chandra MD LAB URINE ORDERABLE S Final Result [facility] [id number] [facility] Department [place] [address] * (ABNORMAL) Lipid panel (03/14/2024 3:44 PM CDT) Pathologist [facility] Cholesterol 180 30 - 199 mg/dL Comment: Interpretive Data Ages < or = 19 years ??Acceptable: ? <170 mg/dL ??Borderline high: ??170-199 mg/dL ??High: ? >or= 200 mg/dL Ages > or = 20 years ??Desirable: ?<200 mg/dL ??Borderline high: ??200-239 mg/dL ??High: ? >or= 240 mg/dL Literature References: 1. Expert Panel on Integrated Guidelines for Cardiovascular Health and Risk Reduction in Children and Adolescents. Pediatrics 2011;128:S213 2. NCEP Expert Panel. Circulation 2004;110:227 Current Interpretive Data was last revised on 2018. Triglycerides 183(H) <=149 mg/dL [facility] Comment: Interpretive Data Ages < or = 9 years ??Acceptable: ? <75 mg/dL ??Borderline high: ??75-99 mg/dL ??High: ? >or= 100 mg/dL Ages 10 to 20 years ??Acceptable: ? <90 mg/dL ??Borderline high: ??90-129 mg/dL ??High: ? >or= 130 mg/dL Ages > or = 20 years ??Desirable: ?<150 mg/dL ??Borderline high: ??150-199 mg/dL ??High: ? 200-499 mg/dL ?Very high: ?? >or= 499 mg/dL Literature References: 1. Expert Panel on Integrated Guidelines for Cardiovascular Health and Risk Reduction in Children and Adolescents. Pediatrics 2011;128:S213 2. NCEP Expert Panel. Circulation 2004;110:227 Current Interpretive Data was last revised on 2018. HDL 38(L) >=40 mg/dL [facility] Comment: Interpretive Data Ages < or = 19 years ??Acceptable: ? >45 mg/dL ??Borderline low: ?? 40-45 mg/dL ??Low: ? <40 mg/dL Ages > or = 20 years ??Desirable: ?>or= 60 mg/dL ??Low: ? <40 mg/dL Literature References: 1. Expert Panel on Integrated Guidelines for Cardiovascular Health and Risk Reduction in Children and Adolescents. Pediatrics 2011;128:S213 2. NCEP Expert Panel. Circulation 2004;110:227 Current Interpretive Data was last revised on 2018. LDL, calculated 105 <=129 mg/dL [facility] Comment: Interpretive Data Ages < or = 19 years ??Acceptable: ? <110 mg/dL ??Borderline high: ??110-129 mg/dL ??High: ?>or= 130 mg/dL Ages > or = 20 years ??Optimal: ? <100 mg/dL ??Near optimal: ?100-129 mg/dL ??Borderline high: ?? 130-159 mg/dL ??High: ?>160 mg/dL Literature References: 1. Expert Panel on Integrated Guidelines for Cardiovascular Health and Risk Reduction in Children and Adolescents. Pediatrics 2011;128:S213 2. NCEP Expert Panel. Circulation 2004;110:227 Current Interpretive Data was last revised on 2018. Non-HDL Cholesterol 142 mg/dL [facility] Comment: Interpretive Data Ages < or = 19 years ??Acceptable: ?<120 mg/dL ??Borderline high: ??120-144 mg/dL ??High: ?>145 mg/dL Ages > or = 20 years ??When triglycerides are >200 mg/dL, Non-HDL cholesterol is a secondary target of ? therapy with treatment goals that are 30 mg/dL greater than the LDL cholesterol target. ? Literature References: 1. Expert Panel on Integrated Guidelines for Cardiovascular Health and Risk Reduction in Children and Adolescents. Pediatrics 2011;128:S213 2. NCEP Expert Panel. Circulation 2004;110:227 Current Interpretive Data was last revised on 2018. Chol/HDL ratio 5 [facility] Blood 03/14/2024 3:44 PM CDT 03/14/2024 6:39 PM CDT us Cecelia Chandra MD LAB BLOOD ORDERABLE S Final Result [facility] [id number] Department of Laboratories [place], [place] [id number] * DIABETES EYE EXAM (12/02/2023 10:37 AM DIVORCE MEDIATOR) us Historical Provider HEALTH MAINTENANCE Final Result * COLONOSCOPY (06/14/2023 1:56 PM CDT) Anatomical Region Laterality Modality Other Narrative Procedure Note Jay Combs MD - 06/14/2023 1:56 PM CDT [facility] Endoscopy Lab Patient Name: Melissa Peña Procedure Date: 06/14/2023 1:56 PM Date of : 1970 Admit Type: Outpatient Age: 53 Gender: Female Note Status: Finalized Attending MD: Jay Combs M.D. Procedure Date: 06/14/2023 Procedure: Colonoscopy Indications: High risk colon cancer surveillance: Personalhistory of colonic polyps, Last colonoscopy: April 2018 Providers: Jay Combs M.D., Tal Lozano, JAYNA (Anesthesia Staff), Phoebe Grace RN, Beto Guardado,Steward/Stewardess Night Referring MD: Zuhair Castrejon M.D. Medicines: Monitored Anesthesia Care Complications: No immediate complications. Estimated Blood Loss: Estimated blood loss: none. Procedure: Pre-Anesthesia Assessment: - Airway Examination: normal oropharyngeal airwayand neck mobility. - Respiratory Examination: clear to auscultation. - ASA Grade Assessment: III - A patient with severe systemic disease. - After reviewing the risks and benefits, thepatient was deemed in satisfactory condition to undergo the procedure. - The risks and benefits of the procedure and the sedation options and risks were discussed with the patient. All questions were answered and informed consent was obtained. After I obtained informed consent, the scope was passed under direct vision. Throughout theprocedure, the patient's blood pressure, pulse, and oxygen saturations were monitored continuously. The scopewas passed under direct vision. The Colonoscope was introduced through the anus and advanced to the the cecum, identified by the appendiceal orifice, ileocecal valve and palpation. The colonoscopy was performed with ease. The patient tolerated the procedure well. The quality of the bowelpreparation was good. The quality of the bowel preparation was evaluated using the BBPS ([place] Bow[facility] Preparation Scale) with scores of: Right Colon = 2 (minoramount of residual staining, small fragments of stooland/or opaque liquid, but mucosa seen well), TransverseColon = 2 (minor amount of residual staining, small fragments of stool and/or opaque liquid, but mucosa seen well) and Left Colon = 2 (minor amount of residual staining, small fragments of stool and/or opaque liquid, but mucosa seen well). The totalBBPS score equals 6. The quality of the bowelpreparation was good. The bowel preparation used was SUPREP via split dose instruction. Bowel prep was administered using a split dose. Findings: The perianal and digital rectal examinations were normal. A 10 mm polyp was found in the hepatic flexure. The polyp was semi-pedunculated. The polyp was removed with a hot snare. Resectionand retrieval were complete. Estimated blood loss: none. An 8 mm polyp was found in the rectum. The polyp was sessile. Thepolyp was removed with a hot snare. Resection and retrieval were complete. Estimated blood loss: none. The retroflexed view of the distal rectum and anal verge was normaland showed no anal or rectal abnormalities. Impression: - One 10 mm polyp at the hepatic flexure, removedwith a hot snare. Resected and retrieved. - One 8 mm polyp in the rectum, removed with a hot snare. Resected and retrieved. - The distal rectum and anal verge are normal on retroflexion view. Recommendation: - Discharge patient to home (ambulatory). - Await pathology results. - Repeat colonoscopy in 3 years for surveillance. - No ibuprofen, naproxen, or other non-steroidal anti-inflammatory drugs for 2 weeks after polyp removal. Procedure Code(s): --- Professional --- 34505, Colonoscopy, flexible; with removal of tumor(s), polyp(s), or other lesion(s) by snare technique Diagnosis Code(s): --- Professional --- Z86.010, Personal history of colonic polyps D12.3, Benign neoplasm of transverse colon (hepatic flexure or splenic flexure) D12.8, Benign neoplasm of rectum CPT copyright 2020 [employer]. All rights reserved. The codes documented in this report are preliminary and upon trade embalmer reviewmay be revised to meet current compliance requirements. Electronically signed by Jay Combs MD Jay oCmbs M.D. 06/14/2023 2:40:40 PM Number of Addenda: 0 Note Initiated On: 06/14/2023 1:56 PM us Jay Combs MD ENDOSCOPY PROCEDURES Final Resul t * Hepatitis panel, acute (09/29/2020 9:30 AM DIVORCE MEDIATOR) Hep A IgM Nonreactive Nonreactive [facility] Comment: Interpretive Data: If Hep A IgM Ab is reported as Equivocal, a new sample should be drawn in two weeks for testing. Current interpretive data was last revised on 19. Hep B core IgM Nonreactive Nonreactive [facility] Comment: Interpretive Data If HepB Core IgM Ab is reported as Equivocal, a new sample should be drawn in two weeks for testing. Current interpretive data was last revised on 19. Hep C Ab Nonreactive Nonreactive [facility] Comment: Interpretive Data Nonreactive: Antibodies to HCV not detected. Does NOT exclude the possibility of recent exposure to HCV. Equivocal: Equivocal for HCV antibodies. Supplemental molecular testing will be automatically performed to determine infection status in accordance with current CDC screening recommendations. ?? Reactive: Positive for HCV antibodies. ??This may represent current or past HCV infection. Supplemental molecular testing will be automatically performed to determine ??current infection status in accordance with current CDC screening recommendations. Interpretive data was last revised on 2019. HepBsAg Nonreactive Nonreactive [facility] Blood specimen (specimen) 09/29/2020 9:30 AM DIVORCE MEDIATOR 09/29/2020 9:43 AM DIVORCE MEDIATOR us Kun Mccoy MD LAB MICROBIOLOGY - GENER AL ORDERABLES Final Result [facility] [address] [place] [address] from Last 3 Months or Most Recently Relevant to Health Maintenance Insurance [facility] HMO/PPO Address: [address] [address] [place] [address] [facility] [employer] [facility] HMO/PPO Address: [address] [address] [place] [address] [facility] HMO/PPO Address: [address] [address] [place] [address] [facility] OPEN ACCESS [facility] H[facility]/PPO Address: [address] [place] [address] [facility] OPEN ACCESS Advance Directives For more information, please contact: [phone] * Full Code (Latest Code Status on File) Date Activated Date Inactivated Comments 09/05/2022 4:21 PM 09/06/2022 9:30 PM * Full Code Date Activated Date Inactivated Comments 03/15/2021 5:10 PM 03/16/2021 7:08 PM * Full Code Date Activated Date Inactivated Comments 11/05/2020 11:52 AM 11/07/2020 8:11 PM * Full Code Date Activated Date Inactivated Comments 07/17/2019 3:41 PM 07/18/2019 4:46 AM Care Teams Technical Support Engineer Relationship Specialty Start Date End Date Zuhair Castrejon MD PCP - General 08/24/20 Bud Ambriz Jr., MD [address] [place] [address] Surgeon Orthopedic Surgery 01/22/18 Lexie Recinos, PT Physical Therapist Physical Therapy 02/01/18 Vicki Contreras, HIDE INSPECTOR AND SORTER Qa Analyst Physical Therapy 02/07/18 Lindsay Schilling Qa Analyst Physical Therapy 02/13/18 Jaclyn Toledo, HIDE INSPECTOR AND SORTER Qa Analyst Physical Therapy 02/16/18 Kun Mccoy MD [address] [place] [address] Medical Oncologist/County Supervisor Hematology and Oncology 09/18/20 Lisset Diggs MD [address] [place] [address] Consulting Physician Rheumatology 09/18/20 Caleb Zacarias MD [address] [place] [address] Surgeon Orthopedic Surgery 02/22/21 Jay Combs MD [address] [place] [address] Consulting Physician Gastroenterology 02/22/21 Palak Dixon PT Physical Therapist Physical Therapy 09/14/22
--- OUTSIDE RECORDS SUMMARY | 2024-10-25 18:15 | XMS_ITS | Clinical Summary ---
Author Organization [facility] Address [address] [place] [id number] Care Team Providers Care Manager Money Name Role Phone Pb Leon MD, Bud Parada Unavailable [phone] Lexie Recinos PT Unavailable Unavailable Vicki Contreras INSPECTOR BRAKE LINING Unavailable Unavailable Lindsay Schilling Unavailable Unavailable Jaclyn Toledo INSPECTOR BRAKE LINING Unavailable Unavailable Zuhair Castrejon MD Primary Care Provider Kun Mccoy MD Unavailable Lisset Diggs MD Unavailable Caleb Zacarias MD Unavailable Jay Combs MD Unavailable Palak Dixon PT Unavailable Unavailable Allergies Active Allergy Reactions Criticality Noted Date Comments Aspirin Hives,Swelling,Short n ess of breath,Urticaria High 07/19/2017 Clarithromycin Blisters,Other (See comments) High Clindamycin Blisters,Other (See comments) High Adalimumab Hives High 06/25/2019 Hydroxychloroquine Rash Medium Ibuprofen Hives,Swelling,Short n ess of breath High 07/19/2017 Infliximab Shortness of breath,Fever,Headache ,Sweating,Hypotension High 09/03/2020 Levofloxacin Blisters,Other (See comments) High Other Hives Medium 11/29/2018 worcestershire sauce-migraines, swelling of throat Peanut Butter Flavor [...] puff every 4 (four) hours as needed 022 Active cetirizine (ZyrTEC) 10 mg tablet Take [...] mg total) by mouth nightly 90 tablet Active Mounjaro 5 mg/0.5 mL pen injectorIndicatio [...] on Monday 90 tablet 3 024 2024 Discontinued(R eorder) pravastatin (PRAVACHOL) 40 mg tabletIndications :Type 2 [...] minutes at least once daily until first varela Assessment & Plan (04/12/2024 10:21 AM CDT): [...] Hyperlipidemia associated with type 2 diabetes m ellitus 03/12/2021 Assessment & Plan (10/15/2024 2:42 PM SOLE DYER): Continue statin therapy Assessment & Plan (03/14/2024 4:11 PM CDT): Continue statin therapy Assessment & Plan (08/15/2023 2:47 PM SOLE DYER): Chronic problem. On statin therapy, no changes. Assessment & Plan (11/28/2022 3:53 PM SOLE DYER): Continue statin therapy Assessment & Plan (05/30/2022 8:11 AM CDT): Patient on statin therapy Tolerating well Assessment & Plan (05/03/2021 10:22 AM CDT): Patient on statin therapy Tolerating well Leukopenia 11/26/2020 Type 2 diabetes mellitus wit h hyperglycemia, without long-term current use of insulin 09/03/2020 Assessment & Plan (10/15/2024 2:43 PM SOLE DYER): Chronic, overall well controlled A1c 5.7%, at [...] months Assessment & Plan (08/15/2023 2:59 PM SOLE DYER): Chronic problem, at goal but with more [...] exam. Assessment & Plan (11/28/2022 3:51 PM SOLE DYER): Chronic, progressive improvement A1c 4.8% Advised to [...] months Assessment & Plan (11/06/2020 2:22 AM SOLE DYER): Sugars controlled. Patient is on metformin at home. Low-dose sliding scale. Assessment & Plan (09/05/2020 5:28 PM SOLE DYER): Newly diagnosed Worsening BS A1c - 11.1 [...] 06/25/2020 Assessment & Plan (10/15/2024 2:42 PM SOLE DYER): Chronic, improving control Continue lisinopril Assessment & Plan (03/14/2024 4:11 PM CDT): Chronic, improving control Continue lisinopril Assessment & Plan (08/15/2023 2:58 PM SOLE DYER): Controlled on lisinopril. No changes. Assessment & Plan (11/28/2022 3:53 PM SOLE DYER): Chronic, improving control Continue lisinopril Assessment & Plan (05/30/2022 8:11 AM CDT): Chronic, well controlled Continue current medication regimen Assessment & Plan (05/03/2021 10:22 AM CDT): Chronic, well controlled Continue current medication regimen Assessment & Plan (03/12/2021 11:40 AM CDT): Controlled on current meds. Assessment & Plan (11/06/2020 2:23 AM SOLE DYER): Blood pressures are low normal at this time. Will hold Lasix for now. Lisinopril has been resumed with hold parameters. Will continue to monitor. Gastroesophageal reflux disease without esophagi tis 06/25/2020 History of migraine 06/25/2020 Mixed anxiety and depressive disorder 06/25/2020 Assessment & Plan (11/06/2020 2:23 AM SOLE DYER): Continue home medications Peripheral venous insufficiency 06/25/2020 [...] 03/09/2017 Assessment & Plan (10/15/2024 2:41 PM SOLE DYER): Chronic, unknown status Patient currently on levothyroxine 175 mcg oral daily Recheck thyroid function test today and further plans based on it Assessment & Plan (03/14/2024 4:10 PM CDT): Chronic, unknown status Patient currently on levothyroxine 175 mcg oral daily Recheck thyroid function test and further plans based on it Assessment & Plan (08/15/2023 2:47 PM SOLE DYER): Clinically and biochemically euthyroid. No medication changes. Assessment & Plan (11/28/2022 3:52 PM SOLE DYER): Continue continue current dose of levothyroxine therapy [...] taken. Assessment & Plan (11/06/2020 2:21 AM SOLE DYER): Continue levothyroxine Assessment & Plan (09/05/2020 5:26 PM SOLE DYER): Reviewed pt recent thyroid lab results Advise [...] taken. Assessment & Plan (09/10/2019 9:31 AM SOLE DYER): Reviewed pt recent thyroid lab results Based [...] Reviewed recent TFT from November 2017 - WN Refill levothyroxine script for one year - [...] 05/2017 Assessment & Plan (10/15/2024 2:42 PM SOLE DYER): Encouraged to keep working on healthy lifestyle habits Assessment & Plan (03/14/2024 4:11 PM CDT): Chronic, trouble losing weight Weight up and down Increased cravings Try topiramate XR 25 oral daily Advised patient to work on her cravings by replacing with healthy alternate food choices when eating Assessment & Plan (11/28/2022 3:51 PM SOLE DYER): Chronic, progressively improving Lost up to 32 [...] therapy Assessment & Plan (09/05/2020 5:27 PM SOLE DYER): Chronic, pt loosing weight due to worsening [...] phentermine Assessment & Plan (09/10/2019 9:31 AM SOLE DYER): Unchanged treatment and lifestyle modifications Counseled again [...] 03/09/2017 Assessment & Plan (11/06/2020 2:23 AM SOLE DYER): Patient wearing her home CPAP Assessment & [...] (08/29/2022): Added automatically from request for surgery [id number] Abnormal ECG 03/12/2021 07/04/2023 Assessment & Plan (03/12/2021 11:40 AM CDT): ECG shows LAFB with RBBB. Echo shows normal LV function. No further testing required. Weakness of both lower extremities 11/05/2020 07/04/2023 Assessment & Plan (11/06/2020 2:23 AM SOLE DYER): Patient seen by Neurology. Workup per Neurology. Fall precautions. Patient may become anxious for MRI, will order 1 time dose of Ativan to be given p.r.n. 30 minutes prior to MRI. 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 03/23/2017 07/04/2023 Encounters Date Type Department Care Team Description 10/16/2024 Telephone [facility] [address] [phone] Cecelia Kasper MD 10/15/2024 2:35 PM SOLE DYER Lab [address] [address] Acquired hypothyroidism 10/15/2024 2:00 PM SOLE DYER Office Visit [facility] [address] [phone] Cecelia Kasper MD Type 2 diabetes mellitus with hyperglycemia, without long-term current use of insulin (HCC) (Primary Dx); Acquired hypothyroidism; Hyperlipidemia associated with type 2 diabetes mellitus (HCC); Hypertension associated with diabetes (HCC); Morbid obesity with BMI of 45.0-49.9, adult (HCC) 10/03/2024 3:00 PM SOLE DYER Office Visit [facility] [address] [place] [phone] Nilam Navas, APPRAISAL TECHNICIAN Pseudotumor cerebri (Primary Dx); Morbid obesity with BMI of 45.0-49.9, adult (HCC); BMI 45.0-49.9, adult (HCC); History of migraine; Narcolepsy without cataplexy(347.00); Sleep apnea, unspecified type 09/23/2024 1:45 PM SOLE DYER - 09/23/2024 11:59 PM SOLE DYER Hospital Encounter [facility] [address] [place] [address] Discharge Disposition: Discharge to home or self care from Last 3 Months Immunizations Name Administration Dates Next Due Influenza, Unspecified 08/02/2022 Pfizer SARS-CoV-2 Monovalent Vaccination (12+ Yrs) PURPLE 09/18/2021 Tdap 07/16/2023 Surgical History Surgery Date Site/Laterality Comments TUBAL LIGATION tubaligation APPENDECTOMY Appendectomy CHOLECYSTECTOMY Cholecystectomy FL FLUORO GUIDED LUMBAR PUNCTURE 07/17/2019 Right ANKLE SURGERY , patient fx her right ankle and did not have surgery COLONOSCOPY 06/14/2023 last colonoscopy 2017, previous polyps UPPER GASTROINTESTINAL ENDOSCOPY TOTAL HIP ARTHROPLASTY Bilateral Medical History Medical History Date Comments Hx Other Medical osteoarthritis; Comments: DUNCAN 02/02/2016 - Hx Other Medical bilateral hip d ysplasia; Comments: DUNCAN 02/02/2016 - Hypertension Hypertension Hx Other Medical Sjogren's disea se Depression Depression Hypercholesterolemia High choles terol; Comments: 11/22/2016 - Anemia Anemia; Comments : 11/22/2016 - Disorder of thyroid Thyroid dise ase Hx Other Medical osteoarthritis; Comments: 11/22/2016 - Headache(784.0) Headache; Commen ts: SUYAPA 01/04/2017 - Irritable bowel syndrome Diabetes mellitus (HCC) Antiphospholipid syndrome (HCC) Leukopenia Sleep apnea pt uses a bi-pap Leukopenia PONV (postoperative nausea and vomiting) Chronic bronchitis (HCC) GERD (gastroesophageal reflux disease) Type 2 diabetes mellitus (HCC) Motion sickness Hypothyroidism Family History Medical History Relation Name Comments Hypertension Father Hypertension; Other Father Alive and well; Stroke Father morbid obesity Father Diabetes Mother Diabetes mellit us; overweight Mother Other Other 1 Family history of lupus like illness - aunt; Other Other 2 Family history of Blaire's granulomatosis - mother, grandmothers; Lung cancer Other 3 Cancer, lung; Diabetes Other 4 Diabetes mellit us; Hypertension Other 5 Hypertension; Mental illness Other 6 Family histor y of Mental illness; Arthritis Other 7 Family history of Arthritis; Stroke Paternal Grandfather Stroke; Cancer Paternal Grandmother Cancer, unknown; Hypertension Sister morbid obesity Sister Breast cancer Neg Hx Ovarian cancer Neg Hx Thyroid cancer Neg Hx Relation Name Status Comments Father Alive Mother Other 1 Other 2 Other 3 Other 4 Other 5 Other 6 Other 7 Paternal Grandfather Paternal Grandmother Sister Social History Tobacco Use Types Packs/Day Years [...] on file Legal Sex Female 6:23 PM SOLE DYER Gender Identity Female 02/27/2020 1:04 PM CDT Sexual Orientation Not on file Obstetrics History Para Term AB IAB SAB Ectopic Multiple Livin g Live Births 3 3 3 Date Outcome GA Total Labor Labor/2nd/3rd Weight Sex Type Anes PTL Kandace A1 A5 Name Clin Term Term Term Last Filed Vital Signs Vital Sign Reading Time Taken Comments Blood Pressure 126/80 10/15/2024 2:13 PM SOLE DYER Pulse 80 10/15/2024 2:13 PM SOLE DYER Temperature 37.4 ??C (99.4 ??F) 05/10/2024 6:06 PM CD T Respiratory Rate 16 10/15/2024 2:13 PM SOLE DYER Oxygen Saturation 98% 10/03/2024 3:01 PM SOLE DYER Inhaled Oxygen Concentration - - Weight 127 kg (280 lb) 10/15/2024 2:13 PM SOLE DYER Height 166.4 cm (5' 5.5 ) 10/15/2024 2:13 PM SOLE DYER Body Mass Index 45.89 10/15/2024 2:13 PM SOLE DYER Plan of Treatment Health Maintenance Due Date Last Done Comments Cervical Cancer Screening 1971 Pneumococcal vaccine <65 (1 of 2 - PCV) 1977 Hepatitis B Screening 1989 Regular Well Visit/Exam 18-64 1989 Zoster Vaccine (1 of 2) 2021 Covid-19 Vaccine (2 - 2023-2 5 season) 2024 09/18/2021 Influenza Vaccine (#1) 2024 , 08/11/2022, 08/02/2022 Dilated Eye Exam 12/01/2024 12/02/2023, , 01/30/2021, Additional history exists Albumin Creatinine Ratio, Urine 03/14/2025 03/14/2024, 12/30/2022, 12/30/2022, Additional history exists Depression Screening 03/14/2025 03/14/2024, 05/18/2023, 11/15/2022, Additional history exists Lipid Panel 03/14/2025 03/14/2024, 12/02, 05/25/2022, Additional history exists Breast Cancer Screening-Mammogram 04/05/2025 04/05/2024, 04/29/2022, 01/09/2021, Additional history exists Hemoglobin A1C 04/14/2025 10/15/2024, 03/02, 08/15/2023, Additional history exists eGFR 09/23/2025 09/23/2024, 06/04, 01/01/2024, Additional history exists Foot Exam 10/15/2025 10/15/2024, 03/02, 08/15/2023 Colon Cancer Screening-Colonoscopy 06/14/20332022, 04/27/2018 DTaP/Tdap/Td Vaccine (2 - Td or Tdap) 07/16/2033 07/16/2023 Hepatitis C Screening Completed 09/29/2020 , 12/04/2017, 05/11/2016 Medical Devices Implanted Type Area Carding Machine Feeder Device Identifier Shelf Expiration Date Model / Serial / Lot [employer] [id number] [place] 56mm Sector Hip Shell Acetabular Gription Sterile Latex Free - [id number] Implanted:Qty: 1 on 03/15/2021 by Caleb Zacarias MD at [facility] Right: Hip [employer] 01/29/2031 [id number] / / [id number] [employer] [id number] Aetabular Cup Hip [place] Dm 56 49 - [id number] Implanted:Qty: 1 on 03/15/2021 by Caleb Zacarias MD at [facility] Right: Hip [employer] 11/29/2030 [id number] / / [id number] [employer] 1217-35-500 [place] 6.5mm 35mm Acetabular Cancellous Screw Bone Sterile - [id number] Implanted:Qty: 1 on 03/15/2021 by Caleb Zacarias MD at [facility] Right: Hip [employer] 01/29/2031 1217-35-500 / / [id number] [employer] [id number] Actis L107 Mm Collar Hip 6 High Offset Stem Femoral - [id number] Implanted:Qty: 1 on 03/15/2021 by Caleb Zacarias MD at [facility] Right: Hip [employer] 11/29/2030 [id number] / / [id number] [employer] [id number] Liner Acetabular Bi Mentum Polyethylene Od49mm Id28mm Femoral Proximal - [id number] Implanted:Qty: 1 on 03/15/2021 by Caleb Zacarias MD at [facility] Right: Hip [employer] 07/01/2024 [id number] / / [id number] [employer] [id number] Articul/Tonny 28mm Cementless Hip +1.5mm 09/14 Taper Head Femoral Latex Free - [id number] Implanted:Qty: 1 on 03/15/2021 by Caleb Zacarias MD at [facility] Right: Hip [employer] 12/30/2025 [id number] / / [id number] [employer] Articul/Tonny 28mm Cementless Hip +1.5mm 09/14 Taper Head Femoral Latex Free [id number] - [id number] Implanted:Qty: 1 on 09/05/2022 by Caleb Zacarias MD at [facility] [employer] [id number] 05/01/2026 [id number] / / [id number] [employer] Actis L107 Mm Collar Hip 6 High Offset Stem Femoral [id number] - [id number] Implanted:Qty: 1 on 09/05/2022 by Caleb Zcaarias MD at [facility] [employer] [id number] 06/01/2032 [id number] / / [id number] [employer] Bi Mentum 47mm 28mm Femoral Proximal Liner Acetabular [id number] - [id number] Implanted:Qty: 1 on 09/05/2022 by Caleb Zacarias MD at [facility] Left: Hip [employer] [id number] 01/29/2026 [id number] / / [id number] [employer] Liner Aetabular Cup Hip [place] Dm 54 47 [id number] - [id number] Implanted:Qty: 1 on 09/05/2022 by Caleb Zacarias MD at [facility] [employer] [id number] 03/31/2031 [id number] / / [id number] [employer] [place] 54mm Sector Hip Shell Acetabular Gription Sterile Latex Free [id number] - [id number] Implanted:Qty: 1 on 09/05/2022 by Caleb Zacarias MD at [facility] [employer] [id number] 07/01/2032 [id number] / / [id number] [employer] [place] 6.5mm 35mm Acetabular Cancellous Screw Bone Sterile 1217-35-500 - [id number] Implanted:Qty: 1 on 09/05/2022 by Caleb Zacarias MD at [facility] [employer] [id number] 07/01/2032 1217-35-500 / / [id number] Procedures Procedure Name Priority Date/Time Associated Diagnosis Comments THYROID FUNCTION CASCADE Routine 10/15/2024 3:02 PM SOLE DYER Acquired hypothyroidism POCT HEMOGLOBIN A1C Routine 10/15/2024 2 :15 PM SOLE DYER Type 2 diabetes mellitus with hyperglycemia, without long-term current use of insulin (HCC) POCT GLUCOSE Routine 10/15/2024 2:15 PM SOLE DYER Type 2 diabetes mellitus with hyperglycemia, without long-term current use of insulin (HCC) EGFR Routine 09/23/2024 8:33 AM SOLE DYER DIFFERENTIAL AUTO Routine 09/23/2024 8:3 3 AM SOLE DYER COMPREHENSIVE METABOLIC PANEL Routine 09/23/2024 8:33 AM SOLE DYER CBC WITH AUTO DIFFERENTIAL Routine 09/23/2024 8:33 AM SOLE DYER SCREENING MAMMOGRAM BILATERAL W R[place] Schedule Routine, [...] (CMS/HCC) (HCC) Hypertension associated with diabetes (HCC) HM DIABETES EYE EXAM Routine 12/02/2023 10:37 AM SOLE DYER COLONOSCOPY 06/14/2023 1:56 PM CDT HEPATITIS PANEL, ACUTE Routine 09/29/2020 9:30 AM SOLE DYER Leukopenia, unspecified type from Last 3 Months or Most Recently Relevant to Health Maintenance Results * Thyroid Function [place] (10/15/2024 3:02 PM SOLE DYER) Pathologist [facility] TSH 0.53 0.30 - 4.20 mcIUnit/mL Blood 10/15/2024 3:02 PM SOLE DYER 10/15/2024 9:00 PM SOLE DYER Result [facility] Cecelia Chandra MD LAB BLOOD ORDERABLE S Final Result TRUNG [id number] [address] Department [place] [address] * POCT hemoglobin A1c (10/15/2024 2:15 PM SOLE DYER) [facility] Hemoglobin A1C, POC 5.7 4.0 - 5.6 % Blood 10/15/2024 2:15 PM SOLE DYER Result [facility] Cecelia Chandra MD POINT OF CARE TEST ORDERABLES Final Result * POCT glucose (10/15/2024 2:15 PM SOLE DYER) [facility] Glucose Blood, POC 140 mg/dL Blood 10/15/2024 2:15 PM SOLE DYER Result [facility] Cecelia Chandra MD POINT OF CARE TEST ORDERABLES Final Result * eGFR (09/23/2024 8:33 AM SOLE DYER) [facility] eGFR 85 >=60 mL/min/1. 73 m2 Comment: [...] last reviewed 2021. Blood 09/23/2024 8:33 AM SOLE DYER 09/23/2024 2:59 PM SOLE DYER us Lisset Diggs MD LAB BLOOD ORDERABLES Final Resul t [facility] [address] Department [place] [address] * (ABNORMAL) Differential, auto (09/23/2024 8:33 AM SOLE DYER) Neutrophil abs 1.7 1.5 - 6.5 K/cumm Imm gran abs 0.0 0.0 - 0.1 K/cumm [facility] Lymphocyte abs 0.6(L) 0.8 - 3.3 K/cumm [facility] Monocyte abs 0.2 0.2 - 0.8 K/cumm [facility] Eosinophil abs 0.0 0.0 - 0.5 K/cumm [facility] Basophil abs 0.0 0.0 - 0.1 K/cumm [facility] Neutrophil pct 67.0 % [facility] Comment: Interpretive Data Percent cell count reference ranges are not reported, since discordance with absolute values may lead to misinterpretation of CBC data. Current Interpretive Data was last revised on 2018. Imm gran pct 0.4 % [facility] Comment: Interpretive Data Percent cell count reference ranges are not reported, since discordance with absolute values may lead to misinterpretation of CBC data. Current Interpretive Data was last revised on 2018. Lymphocyte pct 23.3 % [facility] Comment: Interpretive Data Percent cell count reference ranges are not reported, since discordance with absolute values may lead to misinterpretation of CBC data. Current Interpretive Data was last revised on 2018. Monocyte pct 9.3 % [facility] Comment: Interpretive Data Percent cell count reference ranges are not reported, since discordance with absolute values may lead to misinterpretation of CBC data. Current Interpretive Data was last revised on 2018. Eosinophil pct 0.0 % [facility] Comment: Interpretive Data Percent cell count reference ranges are not reported, since discordance with absolute values may lead to misinterpretation of CBC data. Current Interpretive Data was last revised on 2018. Basophil pct 0.0 % [facility] Comment: Interpretive Data Percent cell count reference ranges are not reported, since discordance with absolute values may lead to misinterpretation of CBC data. Current Interpretive Data was last revised on 2018. Blood 09/23/2024 8:33 AM SOLE DYER 09/23/2024 2:18 PM SOLE DYER us Lisset Diggs MD LAB BLOOD ORDERABLES Final Resul t [facility] [address] Department [place] [address] * (ABNORMAL) CBC with auto differential (09/23/2024 8:33 AM SOLE DYER) WBC 2.6(L) 3.8 - 9.9 K/cumm Hgb 12.9 11.9 - 15.5 g/dL [facility] Hct 42.7 35.6 - 45.5 % [facility] Plt 145(L) 150 - 400 K/cumm [facility] MPV 10.0 9.1 - 12.3 fL [facility] RBC 4.61 3.90 - 5.20 M/cumm [facility] MCV 92.6 81.3 - 96.4 fL [facility] MCH 28.0 27.1 - 33.3 pg [facility] MCHC 30.2(L) 32.3 - 35.7 g/dL [facility] RDW CV 14.9 11.1 - 14.9 % [facility] RDW SD 50.1(H) 35.7 - 48.1 fL [facility] NRBC abs 0.00 0.00 - 0.01 K/cumm [facility] Blood 09/23/2024 8:33 AM SOLE DYER 09/23/2024 2:18 PM SOLE DYER us Lisset Diggs MD LAB BLOOD ORDERABLES Final Resul t [facility] [address] Department [place] [address] * (ABNORMAL) Comprehensive metabolic panel (09/23/2024 8:33 AM SOLE DYER) Sodium 141 135 - 145 mmol/L Potassium, pl 3.7 3.3 - 4.9 mmol/L [facility] Chloride 111(H) 97 - 110 mmol/L [facility] CO2 21(L) 22 - 32 mmol/L [facility] Anion gap 9 2 - 15 mmol/L [facility] BUN 14 6 - 25 mg/dL [facility] Creatinine 0.82 0.60 - 1.10 mg/dL [facility] Glucose 90 70 - 199 mg/dL [facility] Comment: Interpretive Data Fasting glucose >/= 126 [...] classification and Diagnosis of Diabetes Diabetes Care 202; 46: S19-S40. Current interpretive data was last revised 2022. Calcium 8.6 8.5 - 10.3 mg/dL [facility] Bilirubin, total 0.2 0.1 - 1.2 mg/dL [facility] Protein, pl 7.3 6.5 - 8.5 g/dL [facility] Albumin 3.9 3.5 - 5.0 g/dL [facility] Alk phos 106 40 - 130 Units/L [facility] ALT 20 7 - 45 Units/L [facility] AST 17 10 - 45 Units/L [facility] Blood 09/23/2024 8:33 AM SOLE DYER 09/23/2024 2:19 PM SOLE DYER us Lisset Diggs MD LAB BLOOD ORDERABLES Final Resul t [facility] [address] Department [place] [address] * Screening Mammogram Bilateral [place] (04/05/2024 [...] for her next mammogram. Electronically signed by: Cade Robertson 04/05/2024 8:39 AM CDT EXAMINATION: SCREENING MAMMOGRAM [...] There has been no suspicious interval change. us Mahamed Cummins MD IMG MAMMO PROCEDURES F inal Result * Albumin Creatinine Ratio, Urine (03/14/2024 3:44 PM CDT) Albumin Ur 13.7 mg/L Comment: Interpretive Data No reference range established. Current interpretive data was last revised 2019. Creatinine Ur 111.2 mg/dL [facility] Comment: Interpretive Data No reference range established. Current interpretive data was last revised 2019. Albumin Creatinine Ratio, Ur 12 1 - 29 mg/g [facility] Urine 03/14/2024 3:44 PM CDT 03/14/2024 6:39 PM CDT us Cecelia Chandra MD LAB URINE ORDERABLE S Final Result [facility] [address] Department [place] [address] * (ABNORMAL) Lipid panel (03/14/2024 3:44 PM CDT) Pathologist [facility] Cholesterol 180 30 - 199 mg/dL Comment: [...] revised on 2018. Triglycerides 183(H) <=149 mg/dL [facility] Comment: Interpretive Data Ages < or = [...] on 2018. HDL 38(L) >=40 mg/dL [facility] Comment: Interpretive Data Ages [...] 6:39 PM CDT Cecelia Chandra MD LAB BLOOD ORDERABLE S Final Result [facility] [address] Department [place] [address] * DIABETES EYE EXAM (12/02/2023 10:37 AM SOLE DYER) us Historical Provider HEALTH MAINTENANCE Final Result * COLONOSCOPY (06/14/2023 1:56 PM CDT) Anatomical Region Laterality Modality Other Narrative Procedure Note Jay Combs MD - 06/14/2023 1:56 PM CDT - [facility] Endoscopy Lab Patient Name: Melissa Peña Procedure Date: 06/14/2023 1:56 PM Date of : 1970 Admit Type: Outpatient Age: 53 Gender: Female Note Status: Finalized Attending MD: Jay Combs M.D. Procedure Date: 06/14/2023 Procedure: Colonoscopy Indications: High risk colon cancer surveillance: Personalhistory of colonic polyps, Last colonoscopy: April 2018 Providers: Jay Combs M.D., Tal Lozano, TOILET AND LAUNDRY SOAP SUPERVISOR (Anesthesia Staff), Phoebe Grace RN, Beto Guardado,Computer Console Operator Referring MD: Zuhair Castrejon M.D. Medicines: Monitored [...] bowel preparation was evaluated using the BBPS ([place] Bowel Preparation Scale) with scores of: Right [...] polyp removal. Procedure Code(s): --- Professional --- 76976, Colonoscopy, flexible; with removal of tumor(s), polyp(s), or other lesion(s) by snare technique Diagnosis Code(s): --- Professional --- Z86.010, Personal history of colonic polyps D12.3, Benign neoplasm of transverse colon (hepatic flexure or splenic flexure) D12.8, Benign neoplasm of rectum CPT copyright 2020 [employer]. All rights reserved. The codes documented in this report are preliminary and upon group dynamics instructor reviewmay be revised to meet current compliance requirements. Electronically signed by Jay Combs MD Jay Combs M.D. 06/14/2023 2:40:40 PM Number of Addenda: 0 Note Initiated On: 06/14/2023 1:56 PM Jay Combs MD ENDOSCOPY PROCEDURES Final Resul t * Hepatitis panel, acute (09/29/2020 9:30 AM SOLE DYER) Hep A IgM Nonreactive Nonreactive [facility] Comment: Interpretive Data: If Hep A IgM Ab is reported as Equivocal, a new sample should be drawn in two weeks for testing. Current interpretive data was last revised on 19. Hep B core IgM Nonreactive Nonreactive [facility] Comment: Interpretive Data If HepB Core IgM Ab is reported as Equivocal, a new sample should be drawn in two weeks for testing. Current interpretive data was last revised on 19. Hep C Ab Nonreactive Nonreactive [facility] Comment: Interpretive Data Nonreactive: Antibodies to HCV [...] last revised on 2019. HepBsAg Nonreactive Nonreactive [facility] Blood specimen (specimen) 09/29/2020 9:30 AM SOLE DYER 09/29/2020 9:43 AM SOLE DYER Kun Mccoy MD LAB MICROBIOLOGY - GENER AL ORDERABLES Final Result [facility] [address] Department [place] [address] from Last 3 Months or Most Recently Relevant to Health Maintenance Insurance [facility] H[facility]/PPO Address: [address] [address] [place] [address] [facility] CHOICE PLUS [employer] [facility] HMO/PPO Address: [address] [address] [place] [address] [facility]/PPO Address: [address] [address] [place] [address] CIG OPEN ACCESS CIGGYPSY OPEN ACCESS Advance Directives For more information, please contact: [phone] * Full Code (Latest Code Status on File) Date Activated Date Inactivated Comments 09/05/2022 4:21 PM 09/06/2022 9:30 PM * Full Code Date Activated Date Inactivated Comments 03/15/2021 5:10 PM 03/16/2021 7:08 PM * Full Code Date Activated Date Inactivated Comments 11/05/2020 11:52 AM 11/07/2020 8:11 PM * Full Code Date Activated Date Inactivated Comments 07/17/2019 3:41 PM 07/18/2019 4:46 AM Care Teams Manager Money Relationship Specialty Start Date End Date Zuhair Castrejon MD PCP - General 08/24/20 Bud Ambriz Jr., MD [address] [place] [address] Surgeon Orthopedic Surgery 01/22/18 Lexie Recinos, PT Physical Therapist Physical Therapy 02/01/18 Vicki Contreras, INSPECTOR BRAKE LINING [employer] Physical Therapy 02/07/18 Lindsay Schilling [employer] Physical Therapy 02/13/18 Jaclyn Toledo, INSPECTOR BRAKE LINING [employer] Physical Therapy 02/16/18 Kun Mccoy MD [address] [place] [address] Medical Oncologist/Solar Applications Development Engineer Hematology and Oncology 09/18/20 Lisset Diggs MD [address] [place] [address] Consulting Physician Rheumatology 09/18/20 Caleb Zacarias MD [address] [place] [address] Surgeon Orthopedic Surgery 02/22/21 Jay Combs MD [address] [place] [address] Consulting Physician Gastroenterology 02/22/21 Palak Dixon, PT Physical Therapist Physical Therapy 09/14/22
--- OUTSIDE RECORDS SUMMARY | 2024-10-25 18:15 | XMS_ITS ---
Author Organization [facility] mirna Address [address] [place] [address] Care Team Providers Care Buffing Wheel Operator Name Role Phone Zuhair Castrejon MD Primary Care Provider Lisset Longoria [phone] Lisset Diggs MD Unavailable Unavailable REASON FOR VISIT Refills Medications Medication SIG (Take, Route, Fr equency, Duration) Notes Start Date End Date Status Sertraline HCl 100 MG TAKE 1 TABLET(100 MG) BY MOUTH EVERY DAY Once a day for 90 days Active Encounters Encounter Location Date Provider Diagnosis [facility] [address] [facility] [address] [place] [address] 10/24/2024 Lisset Diggs Plan Of Treatment Medication Medication Name Sig Start Date Stop Date Notes Sertraline HCl 100 MG TAKE 1 TABLET(100 MG) BY MOUTH EVERY DAY Once a day for 90 days Next Appt Details Provider Name:Lisset Diggs, 10/29 08:00:00 AM, [address] [facility] [facility] [address], [place], [address], Progress Notes * DEJATHEOJerri ADOB:[birth year] (54 yo F)Acc No.[id number]:10/24/2024 Patient:?Jerri PEÑA :1970???Age:54 Y???Sex:Female Address:[address] [place] [address], [address] * Refills? Refill Sertraline HCl Tablet, 100 MG, 90, TAKE 1 TABLET(100 MG) BY MOUTH EVERY DAY, Once a day, 90 days, Refills=1 * true * Date:? Generated for Laurie rdz/Mickey/Christelle on:?10/25/2024 06:15 PM SURGICAL DENTAL ASSISTANT
--- OUTSIDE RECORDS SUMMARY | 2024-10-25 18:15 | XMS_ITS | Clinical Summary ---
Author Organization [facility] Address [address] [place] [address] Phone Care Team Providers Care Gis Manager Name Role Phone Provider, None Primary Care Provider Unavailabl e Allergies Active Allergy Reactions Criticality Noted Date Comments Adalimumab Hives High 06/25/2019 Aspirin Shortness of Breath High 07/19/2017 Other reaction(s): Urticaria Clarithromycin Other (see Comments) High Other reaction(s): Blisters Hydroxychloroquine Rash Medium Reaction: Rash, Ibuprofen Shortness of Breath High 07/19/2017 Other reaction(s): Swelling Infliximab Other (see Comments) High 09/03/2020 Levofloxacin Other (see Comments) High Other reaction(s): Blisters Other Hives Medium 11/29/2018 [facility] sauce-migraines, swelling of throat Medications Cetirizine HCl 10 MG Capsule 10 mg 6 Active dicyclomine (BENTYL) 20 MG Tablet Take by mouth. 8 Active furosemide (LASIX) 20 MG Tablet TK 1 T PO QD 1 8 Active lisinopril (PRINIVIL, ZESTRIL) 20 MG Tablet TK 1 T PO QD 1 8 Active Pilocarpine HCl 7.5 MG Tablet Take by mouth. 8 Active Potassium 75 MG Tablet Take by mouth. Activ e predniSONE (DELTASONE) 2.5 MG Tablet 3 8 Active sertraline (ZOLOFT) 50 MG Tablet take 1 tablet by oral route every day 6 Active traMADol (ULTRAM) 50 MG Tablet TAKE ONE TABLET BY MOUTH EVERY SIX HOURS NEEDED FOR PAIN 7 Active Ferrous Sulfate 325 (65 Fe) MG Tablet Delayed Response Take by mouth. Activ e RANITIDINE HCL PO Take by mouth. Activ e Galcanezumab-gn lm (EMGALITY SC) by Subcutaneous route. Active VITAMIN D PO Take by mouth. Ac tive Phentermine HCl 37.5 MG Tablet 5 0 Active cevimeline (EVOXAC) 30 MG Capsule Take 30 mg by mouth 3 times daily. Active inFLIXimab (REMICADE IV) by Intravenous route. Active LEVOTHYROXINE SODIUM PO Take by mouth. Activ e Lifitegrast (XIIDRA OP) Place in affected eye(s). Active FAMOTIDINE PO Take by mouth. A ctive Cholecalciferol (Vitamin D3) 1.25 MG (71330 UT) Capsule TAKE 1 CAPSULE BY MOUTH 1 TIME A WEEK 1 Active oxybutynin (DITROPAN) 5 MG Tablet Take 5 mg by mouth 2 times daily. 1 Active potassium chloride CR (KLORCON) 10 MEQ Tablet Controlled Release 1 Active pravastatin (PRAVACHOL) 20 MG Tablet TAKE 1 TABLET BY MOUTH EVERY DAY AT DINNER 1 Active levothyroxine (SYNTHROID) 175 MCG Tablet 1 Active sertraline (ZOLOFT) 100 MG Tablet 1 Active metFORMIN (GLUCOPHAGE) 1000 MG Tablet 1 Active ondansetron (ZOFRAN-ODT) 4 MG TABLET DISPERSIBLE Take 4 mg by mouth. 1 Active cyclobenzaprine (FLEXERIL) 10 MG Tablet TAKE 1 TABLET BY MOUTH EVERY NIGHT AT BEDTIME NEEDED 1 Active Glucose Blood (OneTouch Verio) Strip TEST TWICE DAILY 0 Active Insulin Pen Needle (B-D ULTRAFINE III SHORT PEN) 31G X 8 MM Misc USE UTD 0 Active Lancets (MarketToolsTouch Delica Plus [id number]) Misc USE BID 0 Active abatacept (ORENCIA) 250 MG Recon Soln 250 mg. Active Active Problems No known active problems Social History Tobacco Use Types Packs/Day Years Used Date Smoking Tobacco: Former Cigarettes 1.5 15 Smokeless Tobacco: Never Comments No Sex and Gender Information Value Date Recorded Sex Assigned at Not on file Legal Sex Female 10:37 PM CDT Gender Identity Not on file Sexual Orientation Not on file Last Filed Vital Signs Vital Sign Reading Time Taken Comments Blood Pressure 130/80 10/03/2021 2:48 PM PHOTOGRAPHIC TECHNICIAN Pulse 98 10/03/2021 2:48 PM PHOTOGRAPHIC TECHNICIAN Temperature 36.4 ??C (97.5 ??F) 10/03/2021 2:48 PM CS T Respiratory Rate 20 10/03/2021 2:48 PM PHOTOGRAPHIC TECHNICIAN Oxygen Saturation 99% 10/03/2021 2:48 PM PHOTOGRAPHIC TECHNICIAN Inhaled Oxygen Concentration - - Weight 122.9 kg (271 lb) 10/03/2021 2:48 PM PHOTOGRAPHIC TECHNICIAN Height 165.1 cm (5' 5 ) 10/03/2021 2:48 PM PHOTOGRAPHIC TECHNICIAN Body Mass Index 45.1 10/03/2021 2:48 PM PHOTOGRAPHIC TECHNICIAN Plan of Treatment Health Maintenance Due Date Last Done Comments Hepatitis C Virus (HCV) Screening 1970 TdaP Immunization 1970 Hepatitis B Immunization (1 of 3 - 19+ 3-dose series) 1990 Pap Smear 1992 Cervical Cancer Screening (CCS) 2001 HPV/Cotest 2001 Colonoscopy 2016 Colorectal Cancer Screening 2016 Cologuard 2021 Immunochemical Fecal Occult Blood 2021 Mammogram 2021 Pneumococcal Immunization (5 0+ years) (1 of 1 - PCV) 2021 Zoster Immunization (1 of 2) 2021 Influenza Immunization (#1) 2024 08/02/2022 SARS-COV-2 Immunization ( - season) 2024 09/18/2021, 02/02/2021, 01/05/2021 Respiratory Syncytial Virus (RSV) Immunization (Adult) (1 - 1-dose 75+ series) 2046 Meningococcal Immunization (ACWY) Aged Out No longer eligible b ased on patient's age to complete this topic Rotavirus Immunization Aged Out No lo nger eligible based on patient's age to complete this topic Insurance Care Teams Gis Manager Relationship Specialty Start Date End Date Provider, None [place] PCP - General 12/04/19
--- OUTSIDE RECORDS SUMMARY | 2024-10-25 18:15 | XMS_ITS | Clinical Summary ---
Author Organization [facility] Address [address] [place] [address] Care Team Providers Care Retail Bakery Manager Name Role Phone Laura Castrejon MD Primary Care Provider [phone] Allergies Active Allergy Reactions Criticality Noted Date Comments Ibuprofen Hives High 10/12/2020 Medications OneTouch Verio test strips Strip TEST TWICE DAILY 0 Active cevimeline (EVOXAC) 30 mg capsule 0 Active cholecalciferol 1,250 mcg (50,000 unit) Capsule TK 1 C PO 1 TIME A WK 0 Active cyclobenzaprine (FLEXERIL) 10 mg tablet TAKE 1 TABLET BY MOUTH EVERY NIGHT AT BEDTIME NEEDED 0 Active dicyclomine (BENTYL) 20 mg tablet Take 20 mg by mouth 3 times daily. 0 Active famotidine (PEPCID) 40 mg tablet 0 Active ferrous sulfate 325 mg (65 mg iron) tablet 1 Active furosemide (LASIX) 20 mg tablet 1 Active Emgality Pen 120 mg/mL Pen Injector 0 Active OneTouch Delica Plus Lancet 33 gauge USE BID 0 Active levothyroxine 50 mcg tablet 0 Active levothyroxine 200 mcg tablet 0 Active lisinopriL (PRINIVIL) 20 mg tablet 0 Active metFORMIN (GLUCOPHAGE) 1,000 mg tablet 0 Active oxybutynin chloride (DITROPAN) 5 mg tablet TAKE 1 TABLET BY MOUTH TWICE DAILY 0 Active BD Ultra-Fine Short Pen Needle 31 gauge x 5/16 Needle USE UTD 0 Active phentermine (ADIPEX P) 37.5 mg tablet TAKE 1 TABLET BY MOUTH EVERY DAY BEFORE BREAKFAST 0 Active pilocarpine (SALAGEN) 7.5 mg Tablet 0 Active potassium chloride (KLOR-CON) 10 mEq Extended Release tablet 1 Active pravastatin (PRAVACHOL) 10 mg tablet TK 1 T PO QD AT DINNER 0 Active predniSONE (DELTASONE) 2.5 mg tablet 0 Active sertraline (ZOLOFT) 100 mg tablet 1 Active traMADoL (ULTRAM) 50 mg tablet TAKE 1 TO 2 TABLETS BY MOUTH EVERY 6 HOURS NEEDED 0 Active Active Problems No known active problems Social History Tobacco Use Types Packs/Day Years Used Date Smoking Tobacco: Never Tobacco Cessation:Counseling Given: No Alcohol Use Standard Drinks/Week Comments Never 0 (1 standard drink = 0.6 oz pur e alcohol) Comments Unknown Sex and Gender Information Value Date Recorded Sex Assigned at Not on file Legal Sex Female 12:16 PM CONCRETE PIPE PLANT SUPERVISOR Gender Identity Not on file Sexual Orientation Not on file Last Filed Vital Signs Vital Sign Reading Time Taken Comments Blood Pressure 120/77 10/12/2020 2:19 PM CONCRETE PIPE PLANT SUPERVISOR Pulse 114 10/12/2020 2:19 PM CONCRETE PIPE PLANT SUPERVISOR Temperature 37.2 ??C (99 ??F) 10/12/2020 2:19 PM CONCRETE PIPE PLANT SUPERVISOR Respiratory Rate - - Oxygen Saturation 96% 10/12/2020 2:19 PM CONCRETE PIPE PLANT SUPERVISOR Inhaled Oxygen Concentration - - Weight 125.2 kg (276 lb) 10/12/2020 2:19 PM CONCRETE PIPE PLANT SUPERVISOR Height 165.1 cm (5' 5 ) 10/12/2020 2:19 PM CONCRETE PIPE PLANT SUPERVISOR Body Mass Index 45.93 10/12/2020 2:19 PM CONCRETE PIPE PLANT SUPERVISOR Plan of Treatment Health Maintenance Due Date Last Done Comments DIABETES ANNUAL FOOT EXAM 1989 DIABETES ANNUAL RETINAL EXAM 1989 DIABETES MICROALBUMIN ANNUAL SCREEN 1989 LDL CHOLESTEROL ANNUAL 1989 DTAP/TDAP/TD VACCINES (1 - Tdap) 1990 HEPATITIS B VACCINES (1 of 3 - 19+ 3-dose series) 05/02 CERVICAL CANCER SCREENING 2001 BREAST CANCER SCREENING 2011 COLORECTAL SCREENING 2016 Colorectal Cancer Screening 2016 FIT-DNA Q 3 years 2016 FIT/FOBT Q 1 year 2016 Flex Sig/CT Colonography Q 5 years 2016 DIABETES HBA1C Q 6 MONTHS 02/21/2021 08/24/2020 ZOSTER VACCINE (1 of 2) 2021 INFLUENZA VACCINE (#1) 2024 Insurance [employer] Care Teams Retail Bakery Manager Relationship Specialty Start Date End Date Laura Castrejon MD [address] [place] [address] PCP - General Internal Medicine 10/12/20
--- OUTSIDE RECORDS SUMMARY | 2024-10-25 18:15 | XMS_ITS | Patient Health Record ---
Author Organization [facility] mirna Address [address] [place] [address] Care Team Providers Care Parts Identification Technician Name Role Phone Zuhair Castrejon MD Primary Care Provider Unav ailable Lisset Diggs Unavailable [phone] Lisset Diggs MD Unavailable Unavailable Allergies Allergen (clinical drug [...] Clindamycin Unknown Drug Allergy 03/04/2018 Ac tive Results Component Value Reference Range Notes CBC w auto diff Reviewed date:07/01/2024 08:23:16 PM Interpretation: Performing Lab:[facility] , [address] [facility] [address] Notes/Report: WBC 3.1 3.8-9.9 K/cumm Hgb 13.3 11.9-15.5 g/dL Hct 44.2 35.6-45.5 % Platelet Ct 180 150-400 K/cumm MPV 9.8 9.1-12.3 fL RBC 4.78 3.90-5.20 M/cumm MCV 92.5 81.3-96.4 fL MCH 27.8 27.1-33.3 pg MCHC 30.1 32.3-35.7 g/dL RDW CV 16.2 11.1-14.9 % RDW SD 55.1 35.7-48.1 fL NRBC Abs Auto 0.00 0.00-0.01 K/cumm Comprehensive metabolic pane l (CMP) Reviewed date:07/01/2024 08:23:16 PM Interpretation: Performing Lab:[facility] , [address] [place] [address]. [place] [address] Notes/Report: Sodium 141 135-145 mmol/L Plasma Potassium 3.8 3.3-4.9 mmol/L Chloride 109 97-110 mmol/L Total CO2 22 22-32 mmol/L Anion Gap 10 2-15 mmol/L BUN 13 6-25 mg/dL Creatinine 1.06 0.60-1.10 mg/dL Glucose 82 70-199 mg/dL Interpretive Data Fasting glucose >/= 126 mg/dl is diagnostic for diabetes. Fasting is defined as no caloric intake [...] Current interpretive data was last revised 2022. Total Calcium 9.4 8.5-10.3 mg/dL Total Bilirubin 0.2 0.1-1.2 mg/dL Plasma Total Protein 8.1 6.5-8.5 g/dL Albumin 3.9 3.5-5.0 g/dL Alkaline Phosphatase 122 40-130 Units/L ALT 31 7-45 Units/L AST 21 10-45 Units/L QTB Gold Reviewed date:07/04/2024 10:18:57 AM Interpretation: Performing Lab:[facility] , [address] [place] [address]. [place] [address] Notes/Report: QuantiFERON TB Gold Negative Negative No interferon-gamma response to M. tuberculosis antigens was detected. Latent infection with M. tuberculosis is unlikely. A single negative result does not exclude infection with M. tuberculosis. In patients at high risk for M.tuberculosis infection, a second test should be considered in accordance with the 2017 ATS/IDSA/CDC Clinical Practice Guidelines for Diagnosis of Tuberculosis in Adults and Children [Monster RAMSAY et. al. Clin. Infect. Dis. 2017;64(2):111-115]. The reference range for the 'TB1 Ag minus Nil Result' and 'TB2 Ag minus Nil Result' is an Interferon-gamma level <0.35 IU/mL. TB-Nil -0.02 TB2-Nil 0.03 Mitogen-Nil 4.84 NIL 0.04 Test Performed by: [facility] [address] [place] [address] Buffet Manager: Leif Wilburn Ph.D.; CLIA# [id number] CBC w auto diff Reviewed date:09/24/2024 09:13:05 AM Interpretation: Performing Lab:[facility] , [address] [place] [address]. [place] [address] Notes/Report: WBC 2.6 3.8-9.9 K/cumm Hgb 12.9 11.9-15.5 g/dL Hct 42.7 35.6-45.5 % Platelet Ct 145 150-400 K/cumm MPV 10.0 9.1-12.3 fL RBC 4.61 3.90-5.20 M/cumm MCV 92.6 81.3-96.4 fL MCH 28.0 27.1-33.3 pg MCHC 30.2 32.3-35.7 g/dL RDW CV 14.9 11.1-14.9 % RDW SD 50.1 35.7-48.1 fL NRBC Abs Auto 0.00 0.00-0.01 K/cumm Comprehensive metabolic pane l (CMP) Reviewed date:09/24/2024 09:13:06 AM Interpretation: Performing Lab:[facility] , [address] [place] [address]. [place] [address] Notes/Report: Sodium 141 135-145 mmol/L Plasma Potassium 3.7 3.3-4.9 mmol/L Chloride 111 97-110 mmol/L Total CO2 21 22-32 mmol/L Anion Gap 9 2-15 mmol/L BUN 14 6-25 mg/dL Creatinine 0.82 0.60-1.10 mg/dL Glucose 90 70-199 mg/dL Interpretive Data Fasting glucose >/= 126 mg/dl is diagnostic for diabetes. Fasting is defined as no caloric intake [...] Current interpretive data was last revised 2022. Total Calcium 8.6 8.5-10.3 mg/dL Total Bilirubin 0.2 0.1-1.2 mg/dL Plasma Total Protein 7.3 6.5-8.5 g/dL Albumin 3.9 3.5-5.0 g/dL Alkaline Phosphatase 106 40-130 Units/L ALT 20 7-45 Units/L AST 17 10-45 Units/L Differential Automated Reviewed date:07/01/2024 08:23:16 PM Interpretation: Performing Lab:[facility] , [address] [place] [address]. [facility] [address] Notes/Report: Neut Abs 2.2 1.5-6.5 K/cumm ImmGran Abs 0.0 0.0-0.1 K/cumm Lymphocyte Abs 0.7 0.8-3.3 K/cumm Bourbon Abs 0.3 0.2-0.8 K/cumm Eos Abs 0.0 0.0-0.5 K/cumm Baso Abs 0.0 0.0-0.1 K/cumm Neut Pct 69.9 Interpretive Data Percent cell count reference ranges are not reported, since discordance with absolute values may lead to misinterpretation of CBC data. Current Interpretive Data was last revised on 2018. ImmGran Pct 0.3 Interpretive Data Percent cell count reference ranges are not reported, since discordance with absolute values may lead to misinterpretation of CBC data. Current Interpretive Data was last revised on 2018. Lymph Pct 21.5 Interpretive Data Percent cell count reference ranges are not reported, since discordance with absolute values may lead to misinterpretation of CBC data. Current Interpretive Data was last revised on 2018. Bourbon Pct 8.3 Interpretive Data Percent cell count reference ranges are not reported, since discordance with absolute values may lead to misinterpretation of CBC data. Current Interpretive Data was last revised on 2018. Eos Pct 0.0 Interpretive Data Percent cell count reference ranges are not reported, since discordance with absolute values may lead to misinterpretation of CBC data. Current Interpretive Data was last revised on 2018. Baso Pct 0.0 Interpretive Data Percent cell count reference ranges are not reported, since discordance with absolute values may lead to misinterpretation of CBC data. Current Interpretive Data was last revised on 2018. eGFR Reviewed date:07/01/2024 08:23:16 PM Interpretation: Performing Lab:[facility] , [address] [facility] [place] [address] Notes/Report: eGFR 63 >=60 mL/min/1.73 m2 Interpretive Data Reference Interval Normal >/= 90 mL/min/1.73m2 Mildly decreased* 60 - 89 mL/min/1.73m2 Mildly to moderately decreased 45 - 59 mL/min/1.73m2 Moderately to severely decreased 30 - 44 mL/min/1.73m2 Severely decreased 15 - 29 mL/min/1.73m2 Kidney Failure < 15 mL/min/1.73m2 *Relative to young adult level Estimated glomerular [...] Current interpretive data was last reviewed 2021. Differential Automated Reviewed date:09/24/2024 09:13:05 AM Interpretation: Performing Lab:[facility] , [address] [facility] [place] [address] Notes/Report: Neut Abs 1.7 1.5-6.5 K/cumm ImmGran Abs 0.0 0.0-0.1 K/cumm Lymphocyte Abs 0.6 0.8-3.3 K/cumm Bourbon Abs 0.2 0.2-0.8 K/cumm Eos Abs 0.0 0.0-0.5 K/cumm Baso Abs 0.0 0.0-0.1 K/cumm Neut Pct 67.0 Interpretive Data Percent cell count reference ranges are not reported, since discordance with absolute values may lead to misinterpretation of CBC data. Current Interpretive Data was last revised on 2018. ImmGran Pct 0.4 Interpretive Data Percent cell count reference ranges are not reported, since discordance with absolute values may lead to misinterpretation of CBC data. Current Interpretive Data was last revised on 2018. Lymph Pct 23.3 Interpretive Data Percent cell count reference ranges are not reported, since discordance with absolute values may lead to misinterpretation of CBC data. Current Interpretive Data was last revised on 2018. Bourbon Pct 9.3 Interpretive Data Percent cell count reference ranges are not reported, since discordance with absolute values may lead to misinterpretation of CBC data. Current Interpretive Data was last revised on 2018. Eos Pct 0.0 Interpretive Data Percent cell count reference ranges are not reported, since discordance with absolute values may lead to misinterpretation of CBC data. Current Interpretive Data was last revised on 2018. Baso Pct 0.0 Interpretive Data Percent cell count reference ranges are not reported, since discordance with absolute values may lead to misinterpretation of CBC data. Current Interpretive Data was last revised on 2018. eGFR Reviewed date:09/24/2024 09:13:05 AM Interpretation: Performing Lab:[facility] , [address] [place] [address]. [facility] [address] Notes/Report: eGFR 85 >=60 mL/min/1.73 m2 Interpretive Data Reference Interval Normal >/= 90 mL/min/1.73m2 Mildly decreased* 60 - 89 mL/min/1.73m2 Mildly to moderately decreased 45 - 59 mL/min/1.73m2 Moderately to severely decreased 30 - 44 mL/min/1.73m2 Severely decreased 15 - 29 mL/min/1.73m2 Kidney Failure < 15 mL/min/1.73m2 *Relative to young adult level Estimated glomerular [...] Current interpretive data was last reviewed 2021. Reason For Referral Reason Orencia PA Diagnosis 1 Rheumatoid arthritis without rheumatoid factor, multiple sites (M06.09) [facility] Referring Provider First Name Lisset Referring Provider Last Name Dontae Referring Provider Speciality Rheumatolo gy Referred Organization [facility] Referred Provider Dontae Lisset Referred Address [address],[place], [place],[address],[place] Referred Provider Specialty Rheumatology Procedure 1 ABATACEPT INJECTION (J0129) Referral Priority Routine Reason YD [employer] Orencia Diagnosis 1 Other rheumatoid art hritis with rheumatoid factor of multiple sites (M05.89) Referral Organization [facility] Referring Provider First Name Lisset Referring Provider Last Name Dontae Referring Provider Speciality Rheumatolo gy Referred Organization [facility] Referred Provider Lisset Diggs Referred Address [address],[place], [place],[address],[place] Referred Provider Specialty Rheumatology Procedure 1 ABATACEPT INJECTION (J0129) Referral Priority Routine Medications Medication SIG (Take, Route, Frequency, Duration) Notes Start Date End Date Status Sertraline HCl 100 MG TAKE 1 TABLET(100 MG) BY MOUTH EVERY DAY Once a day for 90 days Active Orencia - monthly - *Pick strength-form from [employer] for eRX* Active Cevimeline HCl 30 MG TAKE 1 CAPSULE BY MOUTH THREE TIMES DAILY for 30 Active ZyrTEC Allergy 10 MG take 1 capsule by oral route once Oral 1 Active CEVIMELINE 30MG CAPSULES 30 mg TAKE 1 CAPSULE(30 MG) BY MOUTH THREE TIMES DAILY *Reorder from [employer] for eRx and Interaction Alerts* 04/21/2023 Active metFORMIN HCl 1000 MG take 1 tablet (1,000 mg) by oral route 2 times per day with morning and evening meals Oral 2 Active Levothyroxine Sodium 200 MCG take 1 tablet (200 mcg) by oral route once daily Oral 1 Active Cyclobenzaprine HCl 10 MG 1 Oral Once a day for 30 days Active Levothyroxine Sodium 25 MCG take 1 tablet (25 mcg) by oral route once daily Oral 1 Active Famotidine 40 MG take 1 tablet (40 mg) by oral route once daily at bedtime Oral 1 Active FERROUS SULFATE 325MG (5GR) TABS 325 mg (65 mg iron) TAKE 1 TABLET(325 MG) BY MOUTH TWICE DAILY *Reorder from [employer] for eRx and Interaction Alerts* 06/09/2023 Active Lisinopril 20 MG TAKE 2 TABLETS(40 MG) BY MOUTH ONCE DAILY for 90 Active Emgality 120 MG/ML inject 1 milliliter (120 mg) by subcutaneous route once a month in the abdomen, thigh, outer upper arm, or buttocks Subcutaneous Active Pilocarpine HCl 7.5 MG 1 Three times a d ay for 90 days Active Dicyclomine HCl 20 MG take 1 tablet (20 mg) by oral route 3 times per day Oral 3 Active Vitamin D (Ergocalciferol) 1.25 MG (66469 UT) TAKE 1 CAPSULE BY MOUTH WEEKLY for 28 Active traMADol HCl 50 MG TAKE 1 TABLET BY MOUTH EVERY 6 HOURS NEEDED for 30 10/24/2024 Active Phentermine HCl 37.5 MG take 1 tablet (37.5 mg) by oral route once daily before breakfast Oral 1 Active Nurtec 75 MG prn Oral Active Vitamin D3 1000 UNIT take 1 tablet weekly Oral Active predniSONE 2.5 MG TAKE 3 TABLETS(7.5 MG) BY MOUTH DAILY for 30 Active Problems Problem Type SNOMED Code ICD Code Onset Dates Problem Status W/U Status Risk Notes Problem 931935376 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) Active confirmed Problem Rheumatoid arthritis (53272810) Rheumatoid arthritis without rheumatoid factor, unspecified site (M06.00) Active confirmed Problem 897286169 Rheumatoid arthritis without rheumatoid factor, multiple sites (M06.09) Active confirmed Problem Lupus (421571150) Lupus (M32.9) Active confirmed Problem Primary Sjogren's syndrome (530989173) Primary Sjogren's syndrome (M35.00) Active confirmed Vital Signs Heart Rate 94 /min 09/23/2024 Temperature 98.0 degrees Fahrenheit 09/23/2024 Height-cm 165.10 cm 09/23/2024 Blood pressure diastolic 73 mm Hg 09/23/2024 Weight-kg 128.64 kg 09/23/2024 Height 65 in 09/23/2024 Blood pressure systolic 128 mm Hg 09/23/2024 Weight 283.6 lbs 09/23/2024 BMI 47.19 kg/m2 09/23/2024 Encounters Encounter Location Date Provider Diagnosis [facility] [address], [place] [address] 10/31/2023 Lisset Du Other rheumatoid arthritis with rheumatoid factor of multiple sites M05.89 and Rheumatoid arthritis without rheumatoid factor, unspecified site M06.00 [facility] [address], [place] [address] 11/28/2023 Lisset Du Other rheumatoid arthritis with rheumatoid factor of multiple sites M05.89 [facility] [address], [place] [address] 11/28/2023 Lisset Du Other rheumatoid arthritis with rheumatoid factor of multiple sites M05.89 ; Primary Sjogren's syndrome M35.00 ; Lupus M32.9 ; High risk medication use Z79.899 and Screening for osteoporosis Z13.820 [facility] [address], [place] [address] 01/01/2024 Lisset Du Other rheumatoid arthritis with rheumatoid factor of multiple sites M05.89 [facility] [address], [place] [address] 01/29/2024 Lisset Du Other rheumatoid arthritis with rheumatoid factor of multiple sites M05.89 and Rheumatoid arthritis without rheumatoid factor, unspecified site M06.00 [facility] [address], [place] [address] 04/15/2024 Lisset Du Other rheumatoid arthritis with rheumatoid factor of multiple sites M05.89 [facility] [address] [place] [address] 04/15/2024 Lisset Du Other rheumatoid arthritis with rheumatoid factor of multiple sites M05.89 ; Primary Sjogren's syndrome M35.00 ; Lupus M32.9 ; High risk medication use Z79.899 and Screening for osteoporosis Z13.820 [facility] [address], [place] [address] 07/01/2024 Lisset Du Other rheumatoid arthritis with rheumatoid factor of multiple sites M05.89 [facility] [address] [place] [address] 07/29/2024 Lisset Du Other rheumatoid arthritis with rheumatoid factor of multiple sites M05.89 [facility] [address] [place] [address] 08/26/2024 Lisset Du Other rheumatoid arthritis with rheumatoid factor of multiple sites M05.89 [facility] [address] [place] [address] 08/26/2024 Lisset Du Other rheumatoid arthritis with rheumatoid factor of multiple sites M05.89 ; Primary Sjogren's syndrome M35.00 ; Lupus M32.9 ; High risk medication use Z79.899 and Screening for osteoporosis Z13.820 [facility] [address] [place] [address] 09/23/2024 Lisset Du Other rheumatoid arthritis with rheumatoid factor of multiple sites M05.89 [facility] [address] [place] [address] 01/30/2024 Lisset [facility] [address] [place] [address] 02/15/2024 Lisset [facility] [address] [place] [address] 03/08/2024 Lisset [facility] [address] [place] [address] 03/13/2024 Lisset [facility] [address] [place] [address] 04/08/2024 Lisset [facility] [address] [place] [address] 06/23/2024 Lisset [facility] [address] [place] [address] 07/01/2024 Lisset [facility] [address] [place] [address] 07/30/2024 Lisset [facility] [address] [place] [address] 08/14/2024 Lisset [facility] [address] [place] [address] 10/24/2024 Lisset Diggs Assessments Encounter Date Diagnosis (ICD Code) Assessment Notes Treatment Notes Treatment Clinical Notes Section Notes 10/31/2023 Other rheumatoid arthritis with rheumatoid factor of multiple sites (ICD-10 - M05.89) 01/01/2024 Other rheumatoid arthritis with rheumatoid factor of multiple sites (ICD-10 - M05.89) 01/29/2024 Other rheumatoid arthritis with rheumatoid factor of multiple sites (ICD-10 - M05.89) 04/15/2024 Other rheumatoid arthritis with rheumatoid factor of multiple sites (ICD-10 - M05.89) mildly symptomatic, , orencia helping, will continue, change tylenol with codeine to tramadol, advised to schedule DEXA 04/15/2024 Other rheumatoid arthritis with rheumatoid factor of multiple sites (ICD-10 - M05.89) 07/01/2024 Other rheumatoid arthritis with rheumatoid factor of multiple sites (ICD-10 - M05.89) 08/26/2024 Other rheumatoid arthritis with rheumatoid factor of multiple sites (ICD-10 - M05.89) 09/23/2024 Other rheumatoid arthritis with rheumatoid factor of multiple sites (ICD-10 - M05.89) 08/26/2024 Other rheumatoid arthritis with rheumatoid factor of multiple sites (ICD-10 - M05.89) mildly symptomatic, , orencia helping, will continue, decrease prednisone to 5mg/day after today's ionfusion 11/28/2023 Other rheumatoid arthritis with rheumatoid factor of multiple sites (ICD-10 - M05.89) clinically stable, orencia helping, will continue, advised to decrease prednisone to 5mg/day after infusion, DEXA order given, she will go to [facility], tramadol refilled 11/28/2023 Primary Sjogren's syndrome (ICD-10 - M35.00) clinically stable, orencia helping, will continue, advised to decrease prednisone to 5mg/day after infusion, DEXA order given, she will go to [facility], tramadol refilled 11/28/2023 Other rheumatoid arthritis with rheumatoid factor of multiple sites (ICD-10 - M05.89) 07/29/2024 Other rheumatoid arthritis with rheumatoid factor of multiple sites (ICD-10 - M05.89) 11/28/2023 Lupus (ICD-10 - M32.9) clinically stable, orencia helping, will continue, advised to decrease prednisone to 5mg/day after infusion, DEXA order given, she will go to [facility], tramadol refilled 04/15/2024 Primary Sjogren's syndrome (ICD-10 - M35.00) mildly symptomatic, , orencia helping, will continue, change tylenol with codeine to tramadol, advised to schedule DEXA 08/26/2024 Primary Sjogren's syndrome (ICD-10 - M35.00) mildly symptomatic, , orencia helping, will continue, decrease prednisone to 5mg/day after today's ionfusion 01/29/2024 Rheumatoid arthritis without rheumatoid factor, unspecified site (ICD-10 - M06.00) 10/31/2023 Rheumatoid arthritis without rheumatoid factor, unspecified site (ICD-10 - M06.00) 04/15/2024 Lupus (ICD-10 - M32.9) mildly symptomatic, , orencia helping, will continue, change tylenol with codeine to tramadol, advised to schedule DEXA 08/26/2024 Lupus (ICD-10 - M32.9) mildly symptomatic, , orencia helping, will continue, decrease prednisone to 5mg/day after today's ionfusion 11/28/2023 High risk medication use (ICD-10 - Z79.899) clinically stable, orencia helping, will continue, advised to decrease prednisone to 5mg/day after infusion, DEXA order given, she will go to [facility], tramadol refilled 11/28/2023 Screening for osteoporosis (ICD-10 - Z13.820) clinically stable, orencia helping, will continue, advised to decrease prednisone to 5mg/day after infusion, DEXA order given, she will go to [facility], tramadol refilled 08/26/2024 High risk medication use (ICD-10 - Z79.899) mildly symptomatic, , orencia helping, will continue, decrease prednisone to 5mg/day after today's ionfusion 04/15/2024 High risk medication use (ICD-10 - Z79.899) mildly symptomatic, , orencia helping, will continue, change tylenol with codeine to tramadol, advised to schedule DEXA 04/15/2024 Screening for osteoporosis (ICD-10 - Z13.820) mildly symptomatic, , orencia helping, will continue, change tylenol with codeine to tramadol, advised to schedule DEXA 08/26/2024 Screening for osteoporosis (ICD-10 - Z13.820) mildly symptomatic, , orencia helping, will continue, decrease prednisone to 5mg/day after today's ionfusion Plan Of Treatment Pending Test Test Name Order Date DEXA Hip and Spine 11/28/2023 CBC With Differential/Platelet CMP - Comp. Metabolic Panel (14) 024 Next Appt Details Provider Name:Lisset Diggs, 10/29 08:00:00 AM, [address] [facility] [address], [place], [address], Insurance Providers Payer Name Payer Address Payer Phone Subscriber Number Group Number Insured Name Patient Relationship to Insured Coverage Start Date Coverage End Date [employer] [address] [place], [place] [id number] Jerri Peña Self - patient is the insured [employer] [address] [place] [address] [id number] Jerri Peña Self - patient is the insured [facility] Shared Serv Non-Medicar e [address] [address] [place], [place] [id number] Jerri Peña Self - patient is the insured [employer] [address] [address] [place], [place] [id number] Jerri Peña Self - patient is the insured [employer] [address] FELIPA Larsen [id number] Jerri Peña Self - patient is the insured Medical (General) History Medical History History ICD Code Leukopenia; Sjogrens syndrome;
--- OUTSIDE RECORDS SUMMARY | 2024-10-25 18:16 | XMS_ITS | Referral Summary ---
Author Organization [facility] Address [address] [place] [address] Care Team Providers Care Running Rigger Name Role Phone Unavailable Primary Care Provider Unavailabl e Source Comments [facility],non-owned Affiliates and Associated Physician Practices is amultiple site organization consisting of ambulatory clinics and hospital sitesin [place], [place], [place] and [place]. This disclosure is being madepursuant to the Care Everywhere program and may not contain all information available regarding this patient. Last updated 18.[facility] Allergies Active Allergy Reactions Criticality Noted Date Comments Acetaminophen Other Medium Aspirin Urticaria,Shortness of Breath High 07/19/2017 Clarithromycin Other High Clindamycin Other High Hydroxychloroquine Rash Medium Reaction: Rash, Ibuprofen Shortness of Breath,Swelling High 07/19/2017 Levofloxacin Other High Medications * Be aware that medications may not be up to date on this document. Alwaysverify current medications with the patient. Medication Sig Dispensed Refills Start Date End Date Status LISINOPRIL PO Active FUROSEMIDE PO Active Potassium (POTASSIMIN PO) Active PREDNISONE PO Active PILOCARPINE HCL PO Active SERTRALINE HCL PO Active cetirizine (ZYRTEC ALLERGY) 10 MG gel capsule 10 mg 08/30/2016 Active traMADol (ULTRAM) 50 MG tablet TAKE ONE TABLET BY MOUTH EVERY SIX HOURS NEEDED FOR PAIN 06/12/2017 Active dicyclomine (BENTYL) 20 MG tablet Take 20 mg by mouth 03/20/2018 Active amitriptyline (ELAVIL) 50 MG tablet Take 1 tablet by mouth at bedtime. 05/11/2018 Active Social History Tobacco Use Types Packs/Day Years Used Date Smoking Tobacco: Never Smokeless Tobacco: Never Sex and Gender Information Value Date Recorded Sex Assigned at Female 10/13/2021 12:42 PM EMPLOYMENT MANAGER Gender Identity Female 10/13/2021 12:42 PM EMPLOYMENT MANAGER Sexual Orientation Straight 10/13/2021 12 :42 PM EMPLOYMENT MANAGER Last Filed Vital Signs Vital Sign Reading Time Taken Comments Blood Pressure 122/72 08/24/2018 8:44 AM EMPLOYMENT MANAGER Pulse 96 08/24/2018 8:44 AM EMPLOYMENT MANAGER Temperature 36.9 ??C (98.5 ??F) 08/24/2018 8:44 AM CS T Respiratory Rate - - Oxygen Saturation 98% 08/24/2018 8:44 AM EMPLOYMENT MANAGER Inhaled Oxygen Concentration - - Weight 136.1 kg (300 lb) 08/24/2018 8:44 AM EMPLOYMENT MANAGER Height 165.1 cm (5' 5 ) 08/24/2018 8:44 AM EMPLOYMENT MANAGER Body Mass Index 49.92 08/24/2018 8:44 AM EMPLOYMENT MANAGER Plan of Treatment Not on file
--- OUTSIDE RECORDS SUMMARY | 2024-10-25 18:16 | XMS_ITS | Patient Health Summary ---
Author Organization [facility] Address [address] [place] [address] Care Team Providers Care Storage Facility Housekeeper Name Role Phone Unavailable Primary Care Provider Unavailabl e Note from [facility],non-owned Affiliates and Associated Physician Practices is amultiple site organization consisting of ambulatory clinics and hospital sitesin [place], [place], [place] and [place]. This disclosure is being madepursuant to the Care Everywhere program and may not contain all information available regarding this patient. Last updated 18.[facility] Allergies * Acetaminophen(Other) -Medium Criticality * Aspirin(Urticaria,Shortness of Breath) -High Criticality * Clarithromycin(Other) -High Criticality * Clindamycin(Other) -High Criticality * Hydroxychloroquine(Rash) -Medium Criticality * Ibuprofen(Shortness of Breath,Swelling) -High Criticality * Levofloxacin(Other) -High Criticality Medications * Be aware that medications may not be up to date on this document. Alwaysverify current medications with the patient. * LISINOPRIL PO * FUROSEMIDE PO * Potassium (POTASSIMIN PO) * PREDNISONE PO * PILOCARPINE HCL PO * SERTRALINE HCL PO * cetirizine (ZYRTEC ALLERGY) 10 MG gel capsule(Started 08/30/2016) 10 mg * traMADol (ULTRAM) 50 MG tablet(Started 06/12/2017) TAKE ONE TABLET BY MOUTH EVERY SIX HOURS NEEDED FOR PAIN * dicyclomine (BENTYL) 20 MG tablet(Started 03/20/2018) Take 20 mg by mouth * amitriptyline (ELAVIL) 50 MG tablet(Started 05/11/2018) Take 1 tablet by mouth at bedtime. Social History Tobacco Use Types Packs/Day Years Used Date Smoking Tobacco: Never Smokeless Tobacco: Never Sex and Gender Information Value Date Recorded Sex Assigned at Female 10/13/2021 12:42 PM JOURNALISM INSTRUCTOR Gender Identity Female 10/13/2021 12:42 PM JOURNALISM INSTRUCTOR Sexual Orientation Straight 10/13/2021 12 :42 PM JOURNALISM INSTRUCTOR Last Filed Vital Signs Vital Sign Reading Time Taken Comments Blood Pressure 122/72 08/24/2018 8:44 AM JOURNALISM INSTRUCTOR Pulse 96 08/24/2018 8:44 AM JOURNALISM INSTRUCTOR Temperature 36.9 ??C (98.5 ??F) 08/24/2018 8:44 AM CS T Respiratory Rate - - Oxygen Saturation 98% 08/24/2018 8:44 AM JOURNALISM INSTRUCTOR Inhaled Oxygen Concentration - - Weight 136.1 kg (300 lb) 08/24/2018 8:44 AM JOURNALISM INSTRUCTOR Height 165.1 cm (5' 5 ) 08/24/2018 8:44 AM JOURNALISM INSTRUCTOR Body Mass Index 49.92 08/24/2018 8:44 AM JOURNALISM INSTRUCTOR Procedures * CULTURE RESPIRATORY UPPER(Performed 05/22/2018) Performed for Acute pharyngitis, unspecified etiology * STREP A SCREEN - POINT OF CARE (AMB) STL(Performed 05/22/2018) Performed for Acute pharyngitis, unspecified etiology * URINALYSIS AUTO - POINT OF CARE (AMB) STL(Performed 07/19/2017) Performed for Acute cystitis with hematuria Results * CULTURE RESPIRATORY UPPER (05/22/2018 5:46 PM CDT) Upper Respiratory Culture Final report [facility] ACCOUNT BILL Result 1 [facility] ACCOUNT BILL Comment:Routine respiratory leyda Microbiology ENTIRE THROAT (SURFACE REGION OF NECK) / Unknown 05/22/2018 5:46 PM CDT 05/23/2018 Narrative Resulting Agency Comment [facility] [address] ??[facility] [id number] Yomaira Phan APRN-ESCROW AGENT LAB - MICROBI OLOGY ORDERABLES [facility] ACCOUNT BILL [address] [place] [address] * STREP A SCREEN - POINT OF CARE (AMB) STL (05/22/2018) Strep A Rapid POCT Negative Negative Strep A Internal Control Present Lot # [id number] Expiration Date 11/22/2019 Throat ENTIRE THROAT (SURFACE REGION OF NECK) / Unknown 05/22/2018 Yomaira Phan CULINARY MANAGER-ESCROW AGENT LAB - POINT O F CARE ORDERABLES * URINALYSIS AUTO - POINT OF CARE (AMB) STL (07/19/2017) Clarity UA POCT clear Color UA POCT yellow Leukocyte UA 125 Negative Nitrite UA POCT neg Negative Urobilinogen UA 0.2 0.1 - 1.0 Protein UA POCT 30+ Negative pH UA 7.0 5.0 - 8.0 pH units Blood UA 5-10 Negative Specific [place] UA POCT 1.010 1.002 - 1.030 Ketone UA neg Negative Bilirubin UA POCT neg Negative Glucose UA neg Negative Expiration Date [id number] Lot # [id number] QC Verified Yes Yes URINE / Unknown 07/19/2017 Dolores Cannon CULINARY MANAGER-ESCROW AGENT LAB - POINT OF CARE ORDERABLES
--- OUTSIDE RECORDS SUMMARY | 2024-10-25 18:16 | XMS_ITS ---
Author Organization [facility] Address [address] [place] [address] Care Team Providers Care Social Science Teacher Name Role Phone Zuhair Castrejon MD Primary Care Provider Lisset Longoria Unavailable [phone] Lisset Carty MD Unavailable Unavailable Allergies Allergen [...] Range Notes CBC w auto diff Reviewed date:09/24/2024 09:13:05 AM Interpretation: Performing Lab:[facility] , [address] [facility] [address] Notes/Report: WBC 2.6 3.8-9.9 K/cumm Hgb 12.9 [...] 09:13:06 AM Interpretation: Performing Lab:[facility] , [facility] [address] Notes/Report: Sodium 141 135-145 mmol/L Plasma Potassium [...] 20 7-45 Units/L AST 17 10-45 Units/L REASON FOR VISIT Infusion, Orencia, 1000mg, 4 vials, YD Medications Medication SIG (Take, Route, Frequency, Duration) Notes Start Date End Date Status traMADol HCl 50 MG 1 tablet as needed Orally every 6 hrs for 30 days 09/17/2024 Active Cevimeline HCl 30 MG TAKE 1 CAPSULE BY MOUTH THREE TIMES DAILY for 30 Active Vitamin D (Ergocalciferol) 1.25 MG (17661 UT) TAKE 1 CAPSULE BY MOUTH WEEKLY for 28 Active Sertraline HCl 100 MG TAKE 1 TABLET(100 MG) BY MOUTH EVERY DAY for 30 Active predniSONE 2.5 MG TAKE 3 TABLETS(7.5 MG) BY MOUTH DAILY for 30 Active CEVIMELINE 30MG CAPSULES 30 mg TAKE 1 CAPSULE(30 MG) BY MOUTH THREE TIMES DAILY *Reorder from [facility] for eRx and Interaction Alerts* 04/21/2023 Active Cyclobenzaprine HCl 10 MG 1 Oral Once a day for 30 days Active Famotidine 40 MG take 1 tablet (40 mg) by oral route once daily at bedtime Oral 1 Active Lisinopril 20 MG TAKE 2 TABLETS(40 MG) BY MOUTH ONCE DAILY for 90 Active Pilocarpine HCl 7.5 MG 1 Three times a d ay for 90 days Active Orencia - monthly - *Pick strength-form from [facility] for eRX* Active metFORMIN HCl 1000 MG take 1 tablet (1,000 mg) by oral route 2 times per day with morning and evening meals Oral 2 Active Dicyclomine HCl 20 MG take 1 tablet (20 mg) by oral route 3 times per day Oral 3 Active Nurtec 75 MG prn Oral Active Vitamin D3 1000 UNIT take 1 tablet weekly Oral Active Levothyroxine Sodium 200 MCG take 1 tablet (200 mcg) by oral route once daily Oral 1 Active Levothyroxine Sodium 25 MCG take 1 tablet (25 mcg) by oral route once daily Oral 1 Active FERROUS SULFATE 325MG (5GR) TABS 325 mg (65 mg iron) TAKE 1 TABLET(325 MG) BY MOUTH TWICE DAILY *Reorder from [facility] for eRx and Interaction Alerts* 06/09/2023 Active Emgality 120 MG/ML inject 1 milliliter (120 mg) by subcutaneous route once a month in the abdomen, thigh, outer upper arm, or buttocks Subcutaneous Active Phentermine HCl 37.5 MG take 1 tablet (37.5 mg) by oral route once daily before breakfast Oral 1 Active ZyrTEC Allergy 10 MG take 1 capsule by oral route once Oral 1 Active Vital Signs Temperature 98.0 degrees Fahrenheit 09/23/20 24 Blood pressure systolic 128 mm Hg 09/23/20 24 Blood pressure diastolic 73 mm Hg 024 Heart Rate 94 /min 09/23/2024 Height 65 in 09/23/2024 Weight 283.6 lbs 09/23/2024 BMI 47.19 kg/m2 09/23/2024 Height-cm 165.10 cm 09/23/2024 Weight-kg 128.64 kg 09/23/2024 Encounters Encounter Location Date Provider Diagnosis [facility] [address] [place] [address] 09/23/2024 Lisset Carty Other rheumatoid arthritis with rheumatoid factor of multiple sites M05.89 Assessments Encounter Date Diagnosis (ICD Code) Assessment Notes Treatment Notes Treatment Clinical Notes Section Notes 09/23/2024 Other rheumatoid arthritis with rheumatoid factor of multiple sites (ICD-10 - M05.89) Plan Of Treatment Next Appt Details Provider Name:Lisset Carty, 10/29 08:00:00 AM, [address], [place], [address], Progress Notes * DEJATHEO Jerri ADOB:[birth year] (54 yo F)Acc No.[id number]:09/23/2024 Infusion Patient:?CHEMO Jerri A Provider:?LISSET CARTY MD :1970???Age:54 Y???Sex:Female D ate:09/23/2024 Address:[address] [place] [address] Pcp:Zuhair Castrejon MD Subjective: * Chief Complaints: * ???Infusion, Orencia, 1000mg , 4 vials, YD * HPI: ???Infusion:?Infusion Record?Type of Infusion? ,Orencia,?What is the dosage?. 1000mg,?How is the dose calculated?. weight based,?Authorized by? ,Dr. Carty,?Number of vials to reconstitute?. 4,?Infusion type? ,Orencia,?Amount?. 1000mg,?Export Freight Clerk?____ BMS,?Expiration date? 12/26,?Lot number?___ [id number],?Sterile water (number of vials)?. auto injector,?Sterile water lot number?___ [id number],?Sterile water exp. date? 10/27,?sterile water MFG?__ Coyle.?Pre Infusion Assessment?TB Screening Results PPD? ,?Quantiferon TB Gold Results?Negative 07/01/24,?Chest Xray Results? ,?Recent exposure to TB? ,?Any illness now? ,None.?Skin Conditon?Does the patient has any skin condition?no.?Previous Infusion?Date of last infusion?08/26/2024,?Previous infusion type? ,Orencia,?Reaction?Yes,?Was patient pre treated? ,NO,?Response to previous infusion?Yes Pt states that she feels likes her infusions are working for her..?IV INSERTION?Catheter brand?____,?Catherter Gauge? ,24 ga,?Needle Length?____,3/4 inch,?IV site accessed?____ (L) AC,?Number of attempts to access vein/port?. 1,?Premedication? NA,?Time given ___ NA.?PATIENT MONITORING?Time infusion initated?___ 0820,?Rate of infusion?___ 200ml/hr,?Infusion end time:? 0855.?DISPOSITION?Time IV discontinued:?___ 0857,?Amount of drug administered?____ 1000mg,?Next Infusion Date Scheduled:?10/21/2024.? * Medical History:? * Surgical History:? * [...] DAILY , Notes to Pharmacist: *Reorder from [facility] for eRx and Interaction Alerts*Phentermine HCl 37.5 [...] , Notes to Pharmacist: *Pick strength-form from [facility] for eRX*metFORMIN HCl 1000 MG Tablet take 1 tablet (1,000 mg) by oral route 2 times per day with morning and evening meals Oral 2 CEVIMELINE 30MG CAPSULES 30 mg TAKE 1 CAPSULE(30 MG) BY MOUTH THREE TIMES DAILY , Notes to Pharmacist: *Reorder from [facility] for eRx and Interaction Alerts*Famotidine 40 MG Tablet take 1 tablet (40 mg) by oral route once daily at bedtime Oral 1 Cyclobenzaprine HCl 10 MG Tablet 1 Oral Once a day Pilocarpine HCl 7.5 MG Tablet 1 Three times a day Lisinopril 20 MG Tablet TAKE 2 TABLETS(40 MG) BY MOUTH ONCE DAILY Sertraline HCl 100 MG Tablet TAKE 1 TABLET(100 MG) BY MOUTH EVERY DAY Vitamin D (Ergocalciferol) 1.25 MG (23624 UT) Capsule TAKE 1 CAPSULE BY MOUTH WEEKLY predniSONE 2.5 MG Tablet TAKE 3 TABLETS(7.5 MG) BY MOUTH DAILY Cevimeline HCl 30 MG Capsule TAKE 1 CAPSULE BY MOUTH THREE TIMES DAILY traMADol HCl 50 MG Tablet 1 tablet as needed Orally every 6 hrs Taking ZyrTEC Allergy 10 MG Capsule take 1 [...] DAILY , Notes to Pharmacist: *Reorder from [facility] for eRx and Interaction Alerts*Taking Phentermine HCl [...] , Notes to Pharmacist: *Pick strength-form from [facility] for eRX*Taking metFORMIN HCl 1000 MG Tablet take 1 tablet (1,000 mg) by oral route 2 times per day with morning and evening meals Oral 2 Taking CEVIMELINE 30MG CAPSULES 30 mg TAKE 1 CAPSULE(30 MG) BY MOUTH THREE TIMES DAILY , Notes to Pharmacist: *Reorder from [facility] for eRx and Interaction Alerts*Taking Famotidine 40 MG Tablet take 1 tablet (40 mg) by oral route once daily at bedtime Oral 1 Taking Cyclobenzaprine HCl 10 MG Tablet 1 Oral Once a day Taking Pilocarpine HCl 7.5 MG Tablet 1 Three times a day Taking Lisinopril 20 MG Tablet TAKE 2 TABLETS(40 MG) BY MOUTH ONCE DAILY Taking Sertraline HCl 100 MG Tablet TAKE 1 TABLET(100 MG) BY MOUTH EVERY DAY Taking Vitamin D (Ergocalciferol) 1.25 MG (54634 UT) Capsule TAKE 1 CAPSULE BY MOUTH WEEKLY Taking predniSONE 2.5 MG Tablet TAKE 3 TABLETS(7.5 MG) BY MOUTH DAILY Taking Cevimeline HCl 30 MG Capsule TAKE 1 CAPSULE BY MOUTH THREE TIMES DAILY Taking traMADol HCl 50 MG Tablet 1 tablet as needed Orally every 6 hrs * Allergies:?Humira: Allergy - Onset Date 07/03/2019Aspirin: Allergy - Onset Date 03/04/2018Clindamycin: Allergy - Onset Date 03/04/2018Ibuprofen: Allergy - Onset Date 03/04/2018Plaquenil: Allergy - Onset Date 03/04/2018Levaquin: Allergy - Onset Date 03/04/2018Remicade: Allergy - Onset Date 03/26/2020Clarithromycin: Allergy - Onset Date 03/04/2018 Objective: * Vitals:?BP:128/73mm Hg, HR:9 4/min, Temp:98.0F, Wt:283.6lbs, Wt-k.64 kg, Ht: 65 in, Ht-cm: 165.10 cm, BMI:47.19Index, Body Surface Area: 2.43. Assessment: * Assessment: 1.?Other rheumatoid arthriti s with rheumatoid factor of multiple sites - M05.89 (Primary)??? Plan: * Treatment: ? Value Reference Range ?WBC 2.6 L 3.8-9.9 - K/cum m * ?RBC 4.61 3.90-5.20 - M/c umm * ?Hgb 12.9 11.9-15.5 - g/d L * ?Hct 42.7 35.6-45.5 - % * ?MCV 92.6 81.3-96.4 - fL * ?MCH 28.0 27.1-33.3 - pg * ?MCHC 30.2 L 32.3-35.7 - g/d L * ?Plt 145 L 150-400 - K/cum m * ?MPV 10.0 9.1-12.3 - fL * ?RDW CV 14.9 11.1-14.9 - % * ?RDW SD 50.1 H 35.7-48.1 - fL * ?NRBC Abs Auto 0.00 0.00-0.01 - K/cumm * This lab was reviewed by Milena Carty on 09/24/2024 at 09:13 AM AUTOMOTIVE TIRE WORKER ?LAB: Comprehensive metabolic panel (CMP)* ? Value Reference Range ?BUN 14 6-25 - mg/dL * ?ALT 20 7-45 - Units/L * ?Albumin 3.9 3.5-5.0 - g/dL * ?Alk Phos 106 40-130 - Units /L * ?AST 17 10-45 - Units/L * ?Bili Totl 0.2 0.1-1.2 - mg/ dL * ?Calcium 8.6 8.5-10.3 - mg/d L * ?Chloride 111 H 97-110 - mmol/ L * ?Glucose 90 70-199 - mg/dL * ?Potassium Plas 3.7 3.3-4.9 - mmol/L * ?CO2 Totl 21 L 22-32 - mmol/L * ?Protein Plas 7.3 6.5-8.5 - g/dL * ?Creatinine 0.82 0.60-1.10 - mg/dL * ?Sodium 141 135-145 - mmol/ L * ?Anion Gap 9 2-15 - mmol/L * This lab was reviewed by Milena Carty on 09/24/2024 at 09:13 AM AUTOMOTIVE TIRE WORKER * Procedure Codes:?J0129 ABATA CEPT INJECTION, Units: 100.00 98389 THER/PROPH/DIAG IV INF, INIT * Billing Information: * Visit Code:? * Procedure Codes:? J0129 ABATACEPT INJECTION. Units: 100.00. 81478 THER/PROPH/DIAG IV INF, INIT. * MOTIVE TIRE WORKER Sign off status: Completed true * Provider:?LISSET CARTY MD Date:?09/23/2024 Generated for Laurie rdz/Mickey/eTransmitting on:?10/25/2024 06:15 PM AUTOMOTIVE TIRE WORKER History and Physical Notes * HPI (History of Present Illness) Category Sub-Category Detail Notes Category Not es Infusion Infusion Record Type of Infusion: ,Orencia What is the dosage: . 1000mg How is the dose calculated: . weight bas ed Authorized by: ,Dr. Carty Number of vials to reconstitute: . 4 Infusion type: ,Orencia Amount: . 1000mg Export Freight Clerk: ____ BMS Expiration date: 12/26 Lot number: ___ [id number] Sterile water (number of vials): . auto injector Sterile water lot number: ___ [id number] Sterile water exp. date: 10/27 sterile water MFG: __ Coyle Pre Infusion Assessment TB Screening Results PPD : Quantiferon TB Gold Results: Negative Chest Xray Results: Recent exposure to TB: Any illness now: ,None Skin Conditon Does the patient has any skin co ndition: no Previous Infusion Date of last infusion: 024 Previous infusion type: ,Eboni Reaction: Yes Was patient pre treated: ,NO Response to previous infusion: Yes Pt st ates that she feels likes her infusions are working for her. IV INSERTION Catheter brand: ____ Catherter Gauge: ,24 ga Needle Length: ____,3/4 inch IV site accessed: ____ (L) AC Number of attempts to access vein/port: . 1 Premedication: NA Time given: ___ NA PATIENT MONITORING Time infusion initated: ___ 0 820 Rate of infusion: ___ 200ml/hr Infusion end time:: 0855 DISPOSITION Time IV discontinued:: ___ 0857 Amount of drug administered: ____ 1000mg Next Infusion Date Scheduled:: 5
--- OUTSIDE RECORDS SUMMARY | 2024-10-25 18:16 | XMS_ITS | Clinical Summary ---
Author Organization [facility] [employer] Address [address] [place] [address] Care Team Providers Care Certified Respiratory Therapist Name Role Phone Unavailable Primary Care Provider Unavailabl e Source Comments [facility] [employer],non-owned Affiliates and Associated Physician Practices is amultiple site organization consisting of ambulatory clinics and hospital sitesin [place], [place], [place] and [place]. This disclosure is being madepursuant to the Care Everywhere program and may not contain all information available regarding this patient. Last updated 18.[facility] [employer] Allergies Active Allergy Reactions Criticality Noted Date [...] Sex Assigned at Female 10/13/2021 12:42 PM MECHANISM ASSEMBLER Gender Identity Female 10/13/2021 12:42 PM MECHANISM ASSEMBLER Sexual Orientation Straight 10/13/2021 12 :42 PM MECHANISM ASSEMBLER Last Filed Vital Signs Vital Sign Reading Time Taken Comments Blood Pressure 122/72 08/24/2018 8:44 AM MECHANISM ASSEMBLER Pulse 96 08/24/2018 8:44 AM MECHANISM ASSEMBLER Temperature 36.9 ??C (98.5 ??F) 08/24/2018 8:44 AM CS T Respiratory Rate - - Oxygen Saturation 98% 08/24/2018 8:44 AM MECHANISM ASSEMBLER Inhaled Oxygen Concentration - - Weight 136.1 kg (300 lb) 08/24/2018 8:44 AM MECHANISM ASSEMBLER Height 165.1 cm (5' 5 ) 08/24/2018 8:44 AM MECHANISM ASSEMBLER Body Mass Index 49.92 08/24/2018 8:44 AM MECHANISM ASSEMBLER Plan of Treatment Health Maintenance Due Date Last Done Comments COLOGUARD (AGES 45-75) - COL ON CA SCREENING 1971 COLON MONITORING 1971 COLONOSCOPY - COLON CA SCREENING 1971 CT COLONOGRAPHY - COLON CA SCREENING 1971 Colorectal Cancer Screening 1971 FIT - COLON CA SCREENING 1971 FLEX SIG - COLON CA SCREENING 1971 LIPID TESTING 1971 PAP SMEAR 1971 HIV SCREENING 1986 HEPATITIS C SCREENING 05/10/1989 DTAP/TDAP/TD VACCINES (1 - Tdap) 1990 HEPATITIS B VACCINE (1 of 3 - 19+ 3-dose series) 1990 SCREENING FOR DIABETES 07/19/2017 MAMMOGRAM 04/16/2020 04/16/2018 PNEUMOCOCCAL VACCINE 50+ (1 of 1 - PCV) 2021 ZOSTER VACCINE (1 of 2) 2021 COVID-19 VACCINE (2 - 2023-2 5 season) 2024 09/18/2021 INFLUENZA VACCINE (#1) 2024 DEPRESSION SCREENING 10/02/2024 HIB VACCINE Aged Out No longer eligi ble based on patient's age to complete this topic HPV VACCINE Aged Out No longer eligi ble based on patient's age to complete this topic MENINGOCOCCAL (Group B) VACCINE Aged Out No longer eligible based on patient's age to complete this topic MENINGOCOCCAL VACCINE Aged Out No bry chun eligible based on patient's age to complete this topic PNEUMOCOCCAL VACCINE Aged Out No long er eligible based on patient's age to complete this topic
[2024-10-25 18:19] VITALS: BP 152/90; PULSE 89; RESP 16; TEMP 36.4; O2SAT 100
--- NOTE | 2024-10-25 18:46 | ED.URI ---
HPI - URI/Sore Throat General Chief Complaint: Upper Respiratory Infection Stated Complaint: Cough/Pain In Both Sides Time Seen by Provider: 10/25/24 18:30 Source: patient, RN notes reviewed and old records reviewed Mode of arrival: ambulatory Limitations: no limitations History of Present Illness HPI Narrative: 54 year old female patient presents to [facility] care with complaints of being diagnosed with bronchitis 2 weeks ago and for the past 4--5 days she has had this band around her chest that hurts because of all the coughing. She denies any increased dyspnea or increased cough thinks it is pulled muscles from all the coughing. Patient reports no recent fevers, chills or body aches. Patient reports that she takes daily prednisone for MD elicited complaint: cough and other (discomfort around chest) Pertinent past history: other (recent bronchitis) Onset (ago): day(s) (4-5 days of band around middle chest of increased discomfort) Consistency: intermittent Pain scale (0-10): 8 Description of mucous: clear Able to tolerate fluids by mouth: Yes Exacerbating factors: deep breaths and other (changing positions cough,) Treatments prior to arrival: acetaminophen and other (tramadol daily) Related Data Home Medications ?Medication ?Instructions ?Recorded ?Confirmed ?Last Taken ?Type cevimeline 30 mg capsule 30 mg PO DAILY 06/13/21 10/25/24 Unknown History cholecalciferol (vitamin D3) 1,250 1,250 mcg PO DAILY 06/13/21 01/26/22 Unknown History mcg (50,000 unit) capsule cyclobenzaprine 10 mg tablet 10 mg PO HS PRN Sleep 06/13/21 01/26/22 Unknown History dicyclomine 20 mg tablet 20 mg PO BID 06/13/21 01/26/22 Unknown History famotidine 40 mg tablet 40 mg PO DAILY 06/13/21 01/26/22 Unknown History ferrous sulfate 325 mg (65 mg 325 mg PO DAILY 06/13/21 01/26/22 Unknown History iron) tablet (FeroSul) levothyroxine 175 mcg tablet 175 mcg PO DAILY 06/13/21 10/25/24 Unknown History oxybutynin chloride 5 mg tablet 5 mg PO BID 06/13/21 01/26/22 Unknown History pilocarpine HCl 7.5 mg tablet 7.5 mg PO DAILY 06/13/21 10/25/24 Unknown History pravastatin 20 mg tablet 20 mg PO DAILY 06/13/21 01/26/22 Unknown History sertraline 100 mg tablet 100 mg PO DAILY 06/13/21 10/25/24 Unknown History tramadol 50 mg tablet 50 mg PO Q6-8H PRN Pain 06/13/21 10/25/24 Unknown History abatacept 125 mg/mL subcutaneous 250 mg subcut WEEKLY 10/21/21 01/26/22 Unknown History syringe (Orencia) prednisone 2.5 mg tablet 2.5 mg PO TID 01/26/22 10/25/24 Unknown History acetazolamide 250 mg tablet mg 10/25/24 Unknown History ergocalciferol (vitamin D2) 1,250 10/25/24 Unknown History mcg (50,000 unit) capsule lisinopril 20 mg tablet mg 10/25/24 Unknown History metformin 500 mg tablet mg 10/25/24 Unknown History pravastatin 40 mg tablet mg 10/25/24 Unknown History tirzepatide 5 mg/0.5 mL mg subcut 10/25/24 Unknown History subcutaneous pen injector (Jackro) topiramate 25 mg capsule mg PO 10/25/24 Unknown History sprinkle,extended release 24 hr topiramate 50 mg tablet mg 10/25/24 Unknown History Allergies Allergy/AdvReac Type Severity Reaction Status Date / Time adalimumab (From Humira) Allergy Hives Verified 01/26/22 13:27 clarithromycin Allergy Other Verified 01/26/22 13:27 clindamycin Allergy Other Verified 01/26/22 13:27 hydroxychloroquine Allergy Rash Verified 01/26/22 13:27 ibuprofen Allergy Unknown Verified 01/26/22 13:27 infliximab (From Remicade) Allergy Anaphylaxis Verified 01/26/22 13:27 levofloxacin Allergy Rash Verified 01/26/22 13:27 Sulfa (Sulfonamide Allergy Other Verified 01/26/22 13:27 Antibiotics) Review of Systems Review of Systems: CONSTITUTIONAL: Denies malaise, chills, sweats, or fever. EYES: Denies visual changes, redness, or discharge. ENT: Reports no present rhinorrhea, congestion, sinus pain, otalgia and no sore throat. CARDIOVASCULAR: Denies chest pain, palpitations, or edema.has band around middle chest with most discomfort laterally that is intermittent that increases with cough and some movement RESPIRATORY: Reports cough.? Denies acute dyspnea GASTROINTESTINAL: Denies abdominal pain, nausea, vomiting, diarrhea SKIN: Denies rash or itching. MUSCULOSKELETAL: reports myalgia as a band around her chest. NEUROLOGIC: Denies headache. All systems reviewed & are unremarkable except as noted in HPI and below PMFSH Past Medical History Medical History (Updated 10/27/24 @ 10:29 by Mallory Richter NP) Hyperlipidemia GERD (gastroesophageal reflux disease) Hypertension Diabetes Hypothyroid Sjogrens syndrome Arthritis Social History Social History (Updated 10/27/24 @ 10:28 by Mallory Richter NP) Smoking status: Former smoker Additional smoking assessment comments: quit 20 years ago Alcohol intake: current Alcohol use details: rare social Substance use type: does not use Gender identity (if verbalized by the patient): Female Comments At time of signature, agree with nursing past medical, surgical, social and family history. There is no relevant family history pertinent to the presenting complaint Exam Narrative: GENERAL: Well-appearing, well-nourished, and in no acute distress. HEAD: Normocephalic EYES: PERRLA, conjunctivae clear ENT: Nares clear, turbinates edematous and erythematous, clear discharge. Mucous membranes moist. TM pearly epps with dull light reflex bilaterally; no tragal tenderness. Oropharynx erythematous without lesions. Tonsils not enlarged and without exudate, no drooling, no hoarseness, no trismus, uvula midline. NECK: Supple. No lymphadenopathy CHEST: Clear to auscultation, breath sounds equal. No wheezing, rhonchi, rales, or stridor. No respiratory distress, speaks in full sentences.no acute cough, SAO2 100% on room air, reports band like area around middle chest with some intermittent pain with cough, movements, rising arms, deep breaths, no tachypnea or any retractions noted pain with palpation to lateral chest area. HEART: Regular rate and rhythm. No murmur heard. SKIN: Warm, dry, no rash. NEURO: Alert and oriented x3. PSYCH: Normal mood and affect Course Course Emergency Course: Patient is aware of diagnosis, understands and agrees to treatment plan.? Anticipatory guidance given.? Patient agrees to follow-up as directed and is aware of reasons to seek care at the emergency department. Portions of this record may have been created with voice recognition software Level of Care: Express Care Visit Vital Signs Vital signs: Vital Signs Temperature 36.4 C 10/25/24 18:19 Pulse Rate 89 10/25/24 18:19 Respiratory Rate 16 10/25/24 18:19 Blood Pressure 152/90 H 10/25/24 18:19 Pulse Oximetry 100 10/25/24 18:19 Oxygen Delivery Room Air 10/25/24 18:19 Temperature 36.4 C 10/25/24 18:19 Pulse Rate 89 10/25/24 18:19 Respiratory Rate 16 10/25/24 18:19 Blood Pressure 152/90 H 10/25/24 18:19 Pulse Oximetry 100 10/25/24 18:19 Oxygen Delivery Room Air 10/25/24 18:19 Reviewed MDM - URI/Sore Throat MDM Narrative Medical decision making narrative: Differential diagnosis considered: Barney virus, strep pharyngitis, allergic rhinitis, upper respiratory tract infection, sinusitis, rhinosinusitis, nasopharyngitis. viral pharyngitis, otitis media, otitis externa, pneumonia, bronchitis, viral cough syndrome, viral syndrome, and influenza.? Exam findings show no acute concerns or changes; patient is non-toxic appearing and is in no distress.? Patient is appropriate for outpatient treatment and follow-up. Differential Diagnosis Differential diagnosis: Likely upper respiratory infection, bronchitis and other (costochondritis) Medical Records Attestation: I reviewed the patient's medical records. Lab Data Attestation: I reviewed the patient's lab results. Imaging Data Attestation: I personally reviewed and interpreted this imaging study as follows: My impression: no focal infiltrate or effusion noted Radiologist's impression: [facility] [address] [place] [address] XRay Report Signed Patient: Jerri Marsh : 1970 MR#: [id number] Age: 54 Acct:[id number] Loc: [facility] ADM Date: 10/25/24Attending Dr: Ordering Physician: Mallory Richter APRN Date of Service: 10/25/24 Procedure(s): XR chest 2V Accession Number(s): [id number] cc: HEALTH INFORMATION CLERK PHYSICIAN; Mallory Richter APRN~ CHEST RADIOGRAPH, PA AND LATERAL CLINICAL HISTORY: bronchitis 2 weeks ago, COUGH, GEN CHEST/BACK PAIN . COMPARISON: None available TECHNIQUE: PA and lateral views of the chest. FINDINGS The cardiomediastinal silhouette is unremarkable. The lungs are clear. Visualized osseous structures and soft tissues are unremarkable. IMPRESSION: No focal infiltrate or effusion. Reviewed, dictated and finalized at location A. [employer] Please be advised this is a medical document. It is intended for [id number] communication. It is written in medical language and may contain unfamiliar abbreviations or verbiage. Medical documents are intended to carry relevant information, facts as evident, and the clinical opinion of the practitioner at the time of the encounter. This report may have been done utilizing a voice recognition system. Attempts have been made to correct errors. However, there may be uncorrected grammatical, spelling, and recognition errors present. The file time of this note does not necessarily represent the time of service. Dictated By: Vicki Ratliff MD 10/25/241919 Signed By: <Electronically signed by Vicki Ratliff MD in OV> Critical Care Time Critical Care Time Critical Care Time: No Discharge Plan Discharge Clinical Impression: Costochondritis Patient Disposition: Home, Self-Care Condition: Stable Instructions: Antibiotic Form, Costochondritis (ED) Additional Instructions: Increase fluids especially juices and water Qlnt-tss-exhdptu cough and cold medicine of your choice for your symptoms Tylenol for pain as needed Steroids as directed--take with food heat to the face 20-30 minutes 4-6 times a day for pain Salt water gargles, throat lozenges or throat sprays as desired If your symptoms persist, change or worsen significantly before you can contact your personal physician then please, without delay, go to the emergency department for further evaluation. Follow-up with PCP in 7-10 days or sooner if needed Follow up with PCP soon in regards to your blood pressure which is elevated above threshold for referral. Blood pressure above 120/80 may indicate pre-hypertension. 152/90 Patient Language: [place] Irish Prescriptions: New prednisone 20 mg tablet 40 mg PO DAILY Qty: 10 0RF Rx Instructions: take with food start tomorrow No Action Orencia 125 mg/mL Syringe 250 mg SUBCUT WEEKLY prednisone 2.5 mg tablet 2.5 mg PO TID prednisone 20 mg tablet 40 mg PO DAILY 5 Days Qty: 10 0RF albuterol sulfate 90 mcg/actuation HFA aerosol inhaler 2 puff INHALATION QID PRN (Reason: shortness of breath or wheezing) Qty: 8.5 0RF metformin 500 mg tablet acetazolamide 250 mg tablet pravastatin 40 mg tablet lisinopril 20 mg tablet ergocalciferol (vitamin D2) 1,250 mcg (50,000 unit) capsule topiramate 50 mg tablet topiramate 25 mg capsule,sprinkle,ER 24hr PO Mounjaro 5 mg/0.5 mL pen injector SUBCUT cyclobenzaprine 10 mg tablet 10 mg PO HS PRN (Reason: Sleep) levothyroxine 175 mcg tablet 175 mcg PO DAILY famotidine 40 mg tablet 40 mg PO DAILY sertraline 100 mg tablet 100 mg PO DAILY tramadol 50 mg tablet 50 mg PO Q6-8H PRN (Reason: Pain) dicyclomine 20 mg tablet 20 mg PO BID ferrous sulfate [FeroSul] 325 mg (65 mg iron) tablet 325 mg PO DAILY cevimeline 30 mg capsule 30 mg PO DAILY pravastatin 20 mg tablet 20 mg PO DAILY oxybutynin chloride 5 mg tablet 5 mg PO BID pilocarpine HCl 7.5 mg tablet 7.5 mg PO DAILY cholecalciferol (vitamin D3) 1,250 mcg (50,000 unit) capsule 1,250 mcg PO DAILY Follow-up/Referrals: PHYSICIAN,HEALTH INFORMATION CLERK [Primary Care Provider] - Time of Disposition: 19:35 Quality [place] Coma Scale Eyes: Open Verbal: Oriented and Alert Motor: Follows Commands [place] Coma Total Score: 15
== END 2024-10-25 19:39 | disposition home or self-care (01) ==
PROVIDERS: Emergency Provider Registered Nurse
DX: M94.0 Chondrocostal junction syndrome [Tietze] (principal); E78.5 Hyperlipidemia, unspecified; K21.9 Gastro-esophageal reflux disease without esophagitis; E11.9 Type 2 diabetes mellitus without complications; I10 Essential (primary) hypertension; E03.9 Hypothyroidism, unspecified; M35.00 Sjogren syndrome, unspecified; Z87.891 Personal history of nicotine dependence
CPT/HCPCS: 71046; 99213; G0463

== ENCOUNTER 2025-07-05 11:49 | Emergency (ER) | payer BC, SELFPAY ==
--- OUTSIDE RECORDS SUMMARY | 2024-07-08 19:00 | XMS_ITS | Continuity of Care Document ---
Author Organization [facility] Address [address] [facility] [address] [address] Phone Care Team Providers Care Notching Press Operator Name Role Phone Mal Chavez MD, FACS Unavailable Unavailab le Allergies, Adverse Reactions, Alerts Substance Reaction Status Criticality infliximab Active No Information levofloxacin Active No Information clindamycin Active No Information clarithromycin Active No Informatio n adalimumab Active No Information hydroxychloroquine Active No Inform ation ibuprofen Active No Information aspirin Active No Information Medications Medication Instructions Dosage Effective Dates (start - stop) Status Comments prednisone 2.5 mg tablet take 1 tablet b y oral route every day 2.5 MG - Active acetazolamide 250 mg tablet take 1 tablet by oral route every day 250 MG - Active amoxicillin 500 mg capsule take 1 capsule by oral route before dental procedures - Active cyclobenzaprine 10 mg tablet take 1 tablet by oral route every day 10 MG - Active famotidine 40 mg tablet take 1 tablet by oral route every day at bedtime 40 MG - Active levothyroxine 75 mcg capsule take 1 capsule by oral route every day 75 MCG - Active metformin 500 mg tablet take 1 tablet by oral route 2 times every day with morning and evening meals 500 MG - Active Mounjaro 5 mg/0.5 mL subcutaneous pen injector inject (5MG) by subcutaneous route every week 5 MG - Active Nurtec ODT [address] 1 tablet by translingual route on top of tongue, allow to dissolve then swallow once as needed for migraine; max 1 dose/24 hrs 75 MG - Active Orencia (with maltose) 250 mg intravenous solution infuse (500MG) by intravenous route every 4 weeks over 500 MG - Active pilocarpine 7.5 mg tablet take 1 tablet by oral route 2 times every day 7.5 MG - Active pravastatin 40 mg tablet take 1 tablet b y oral route every day 40 MG - Active Qulipta 60 mg tablet take 1 tablet by oral route every day 60 MG - Active Vitamin D3 50 mcg (2,000 unit) tablet take 1 by oral route every day 1 - Active Artificial Tears (carboxymethylcellulose) 1 % eye drops instill 1 drop by ophthalmic route as needed - Active Tirosint 200 mcg capsule take 1 capsule by oral route every day 200 MCG - Active sertraline 100 mg tablet take 1 tablet b y oral route every day 100 MG - Active tramadol 50 mg tablet take 1 tablet by oral route every 6 hours as needed 50 MG - Active lisinopril 20 mg tablet take 1 tablet by oral route every day 20 MG - Active Procedures Procedure Date Charge For A No Show No Charge Refraction [facility]OLMaster Corneal Topography Fundus Photography W/ Report No Charge GDX Retina Office/outpatient Visit, Est [facility] Eye Photography Office/outpatient Visit, Est Mikey Eye Mask Office/outpatient Visit, Est Office/outpatient Visit, New Advance Directives Directive Yes / No Effective Date File Name No Information Encounters Encounter Description Practice Location Reason(s) For Visit Diagnoses Date Provider Providers Copied on Encounter [facility], [address], [place], [place], [address], [place] tel:[phone] SEC Christopher GONZALEZ Professional No Information 4 Kathy Resendez. [address] [facility], [address], [place], [place], [address], [place]. tel:[phone] Referring Provider: Temo Patton, [address] [facility] [address], [place], [address] . tel:[phone] Office/outpa tient Visit, [facility], [address] [place] [address] [address], [place], [place], [address], [place] tel:[phone] SEC [place] PIN INSERTER REGULATOR Cataract evaluation (chief complaint) Type 2 diabetes mellitus without complication, with long-term current use of insulinCombin ed forms of age-related cataract, bilateralPseu dotumor Dec- 4 Kathy Resendez. [address] [place] [address], [address], [place], [place], [address], [place]. tel:[phone] Specialist : Simran Brar MD, [address] [place] [address] [address], [place], [address]. tel:[phone] cialist: Lisset Diggs MD, [address] [place] [address] [address], [place], [address]. tel:[phone] cialist: Roly Damico, [address] [facility], [address], [place], [address]. tel:[phone] cialist: Kun Mccoy MD, [address] [place] [address], [place], [address]. tel:[phone] er Provider: Simran Brar MD, [address] [place] [address] [address], [place], [address]. tel:[phone] erring Provider: Mal Gaona, [address] [place] [address] [address], [place], [address] . tel:[phone] [facility], [address] [place] [address] [address], [place], [place], [address], [place] tel:[phone] [place] No Information Apr- 4 Kathy Resendez. [address] [place] [address] [facility], [address], [place], [place], [address], [place]. tel:[phone] Specialist : [place], [address] [facility] [address], [place], [address] . tel:[phone] cialist: Lisset Diggs MD, [address] [facility] [address], [place], [address]. tel:[phone] cialist: Roly Damico, [address] [facility], [address], [place], [address]. tel:[phone] cialist: Kun Mccoy MD, [address] [facility], [place], [address]. tel:[phone] erring Provider: Beto Shaver, [address] [facility], [place], [address]. tel:[phone] Office/outpa tient Visit, [facility], [address] [place] [address] [address], [place], [place], [address], [place] tel:[phone] SEC Marco WELLS Dry Eye Evaluation (chief complaint) Meibomian gland dysfunction (MGD) of upper and lower lids of both eyesAllergic conjunctiviti s of both eyesSjogren's syndrome with keratoconjunc tivitis sicca 0-202 0 Rosa Maria Rudolph. [address] [facility], [address], [place], [address], [place]. tel:[phone] Referring Provider: Temo Patton, [address] [facility] [address], [place], [address] . tel:[phone] Office/outpa tient Visit, [facility], [address], [place], [place], [address], [place] tel:[phone] SEC Christopher GONZALEZ Professional 2 month Dry eye f/u (chief complaint) Sjogren's syndrome with keratoconjunc tivitis siccaMeibomia n gland dysfunction (MGD) of upper and lower lids of both eyes 0 Honorio Plascencia. [address] [facility], [address], [place], [place], [address], [place]. tel:[phone] Lisset Diggs MD.Cecelia Chandra MD.Referri Provider: Temo Patton, [address] [facility] [address], [place], [address] . tel:[phone] Office/outpa tient Visit, [facility], [address] [facility] [address], [place], [place], [address], tel:[phone] SEC [place] Professional dry eyes (chief complaint) Sjogren's syndrome with keratoconjunc tivitis siccaPseudotu mor cerebriAllerg ic conjunctiviti s of both eyesMeibomian gland dysfunction (MGD) of left eyePunctate keratitis, bilateralBila teral vitreous detachment of eyes 9 Honorio Plascencia. [address] [facility], [address], [address], . tel:[phone] Specialist : Lisset Diggs MD, [address] [facility] [address] [address], [place], [address]. tel:[phone] cialist: [place], [address] [facility], [address], [place], [address]. tel:[phone] erring Provider: Hasmukh Ann OD, [facility] [address] [facility], [place], [address]. tel:[phone] Family History Family Member Type Diagnosis Age At Onset Mother Problem (finding) Diabetes mellitus Mother Problem (finding) degenerative disorder o f macula Payers Payer name Insurance type Covered libertarian ID Authoriza tion(s) No Information Social History Type Description Quantity Date Captured Comments Sex Female Smoking Status No Information Chief Complaint And Reason For Visit No Information Reason For Referral Reason For Referral No Information Plan Of Treatment Date Type Action Status Goal Tobacco cessation counseling completed Goal Tobacco cessation counseling completed Patient Education Dry Eyes: Care Instruct ions completed Patient Education Learning About Pseudotu mor Cerebri completed History Of Present Illness Encounter Date Complaint History Of Prese nt Illness PIN INSERTER REGULATOR Cataract evaluation The 53 ye ar old patient presents for evaluation of PIN INSERTER REGULATOR Cataract evaluation in the right eye and left eye. Pt referred by Priscilla Michael. Pt reports vision is not as sharp, like looking through a foggy windshield OU x 2 years. Pt states she usually takes glasses off to read and has to hold reading material very close. Pt is having difficulty reading small print, doing needle work and seeing street signs. Pt states she does not like driving at night due to glare from headlights especially in the rain. Pt states eyes get red and irritated at times. NIDDM II pt does not check BS regularly; A1c 5.1, managed by Dr. Chandra. Dry Eye Evaluation The 49 year o ld female presents for evaluation of Dry Eye Evaluation in the right eye and left eye. Hx of Sjogren's syndrome w/K-sicca OU, Vit detachment OU, MGD OS, and Pseudo tumor Cerebri. Patient states eyes still dry some days better than others. Patient using Xiidra BID OU, 2 OTC art tears 1-5 x times a day and a gel QHS OU. Pt states vision is blurry x 3 yrs. Pt has always had troubles with dryness and was never treated until diagnosed with Sjogren's. Pt had an allergic reaction to Humeria in April of last year. Pt states that eyes are dry gritty feeling, irritated and painful. For several months eyes were red all the time but is now improved. 2 month Dry eye f/u The 49 year old female presents for evaluation of 2 month Dry eye f/u in the right eye and left eye. Hx of Sjogren's syndrome w/K-sicca OU, Vit detachment OU, MGD OS, and Pseudo tumor Cerebri. Patient states eyes still dry some days better than others. Patient using Xiidra BID OU, 2 OTC art tears and a gel, and Olopatadine. Patient states she feels she has a spot on the right eye and when she blinks it's painful. dry eyes The 49 year old female presents for evaluation of dry eyes in the right eye and left eye. Hx of GABINO OU, grooves in Retina's, and Sjogren's Syndrome. Patient states her eyes are painful, red, dry, and blurs her VA since April. Patient uses an Preservative Free tear 5x a day both eyes and a Preservative Free gel at night in both eyes. Patients OD and Shuttle Car Operator suggested she see an philosophy specialist. 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 Patient states she had testing for MS and MS was ruled out. Functional Status Date Functional Assessmen t No Information Instructions Date Instruction Additional Infor roland 6 months cat check w ith optomap, OCT on, and VF 24-2 Return in 1 year with Mal Chavez M.D., FACS for OCT (ON) and full w/VF. Related to Combined forms of age-related cataract, bilateral Impression/Plan Related to Type 2 diabetes mellitus without complication, with long-term current use of insulin Impression/Plan Related to Pseud otumor Impression/Plan Related to Combi vish forms of age-related cataract, bilateral Impression/Plan Impression/Plan Impression/Plan Assessments Type Assessment Date No Information Patient Care Teams Name Effective Dates (start - stop) Status Members No Information
--- NOTE | ~2025-07-05 | XR_ITS ---
Examination: XR hip RT 2V w AP pelvis Clinical History: fall last night, right hip pain Comparison: None Technique: 2 views left hip with AP pelvis Findings/impression: 1. Nodes that provided indication states right hip pain but images are of left hip. 2. No acute findings left hip. 3. Left hip prosthesis intact without periprosthetic lucency or fracture. 4. No acute pelvic fracture noted. 5. 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 Reviewed, dictated and finalized at location R.
--- NOTE | ~2025-07-05 | XR_ITS ---
Examination: XR elbow RT min 3V Clinical History: fall last night, swelling Comparison: None Technique: 4 views right elbow Findings/impression: 1. No fracture or dislocation right elbow. Reviewed, dictated and finalized at location R.
--- NOTE | ~2025-07-05 | XR_ITS ---
EXAMINATION: XR hip RT min 2V, 07/05/2025 13:24 CDT HISTORY: fall yesterday, pain COMPARISON: No comparisons available. Findings: No acute fracture or malalignment. Arthroplasty intact Soft tissues unremarkable. Impression: No acute fracture or malalignment. Reviewed, dictated and finalized at location P. Impression: No acute fracture or malalignment.
--- OUTSIDE RECORDS SUMMARY | 2025-07-05 11:55 | XMS_ITS | Clinical Summary ---
Author Organization [facility] Address [address] [place] [address] Care Team Providers Care Lcac Operator Name Role Phone Pb Leon MD, Bud Parada Unavailable [phone] Lexie Recinos PT Unavailable Unavailable Vicki Contreras BIRD TENDER Unavailable Unavailable Lindsay Schilling Unavailable Unavailable Jaclyn Toledo BIRD TENDER Unavailable Unavailable Kun Mccoy MD Unavailable [phone] Lisset Diggs MD Unavailable Caleb Zacarias MD Unavailable [phone] Jay Combs MD Unavailable Palak Dixon PT Unavailable Unavailable Roselyn Mcgrath MD Primary Care Provi fani Allergies Active Allergy Reactions Criticality Noted Date Comments Aspirin Hives,Swelling,Short n ess of breath,Urticaria High 07/19/2017 Clarithromycin Blisters,Other (See comments) High Clindamycin Blisters,Other (See comments) High Adalimumab Hives High 06/25/2019 Hydroxychloroquine Rash Medium Ibuprofen Hives,Swelling,Short n ess of breath High 07/19/2017 Infliximab Shortness of breath,Fever,Headache ,Sweating,Hypotension High 09/03/2020 Levofloxacin Blisters,Other (See comments) High Nuts Hives Medium 03/13/2025 Other Hives Medium 11/29/2018 [facility], swelling of throat Peanut Butter Flavor Hives Medium 11/29/2018 Swelling of throat Radish Hives Medium 11/29/2018 Horse radish sause, swelling of throat Azithromycin Hives Medium 05/10/2022 itching Medications sertraline (ZOLOFT) 100 mg tablet Take 1 tablet (100 mg total) by mouth nightly 1 11/06/19 19 Active cevimeline (EVOXAC) 30 mg capsule Take 1 capsule (30 mg total) by mouth 3 (three) times a day Active cyclobenzaprine (FLEXERIL) 10 mg tablet Take 1 tablet (10 mg total) by mouth nightly 01/30/20 20 Active pilocarpine (SALAGEN) 7.5 mg tablet Take 1 tablet (7.5 mg total) by mouth 3 (three) times a day 02/21/20 20 Active abatacept (ORENCIA) 250 mg injection Infuse 10 mL (250 mg total) IV every 30 (thirty) days Active blood glucose diagnostic (glucose blood) strip 2 (two) times a day 09/20/20 20 Active albuterol HFA (PROVENTIL HFA,VENTOLIN HFA,PROAIR HFA) 90 mcg/actuation inhaler Inhale 1 puff every 4 (four) hours as needed 01/27/20 22 Active cetirizine (ZyrTEC) 10 mg tablet Take 1 tablet (10 mg total) by mouth as needed for allergies Active predniSONE (DELTASONE) 2.5 mg tablet Take 1 tablet (2.5 mg) by mouth 3 (three) times a day 05/08/20 23 Active lisinopriL (PRINIVIL,ZESTRIL ) 20 mg tablet Take 1 tablet (20 mg total) by mouth 2 (two) times a day Active ergocalciferol (VITAMIN D) 50,000 unit capsule Take 1 capsule (50,000 Units total) by mouth once a week Active carboxymethylcell ulose sodium (REFRESH PLUS OPHT) Administer 1 drop into affected eye(s) as needed Active traMADoL (ULTRAM) 50 mg tablet Take 1 tablet (50 mg total) by mouth 2 (two) times a day as needed 04/15/20 24 Active famotidine (PEPCID) 40 mg tabletIndications :Chronic diarrhea Take 1 tablet (40 mg total) by mouth daily 02/19/20 25 Active dicyclomine (BENTYL) 20 mg tabletIndications :Chronic diarrhea Take 1 pill up to 4 times daily as needed for diarrhea/cram ping. If taken before eating, it can prevent diarrhea/cram ping after eating. 360 tablet 3 03/13/20 25 Active simethicone (MYLICON) 125 mg chewable tabletIndications :Chronic diarrhea Take 1 tablet (125 mg total) by mouth 4 (four) times a day as needed (cramping/blo ating/gas/janey sea) 360 tablet 3 03/13/20 25 Active pravastatin (PRAVACHOL) 40 mg tabletIndications :Type 2 diabetes mellitus with hyperglycemia, without long-term current use of insulin (HCC) TAKE 1 TABLET(40 MG) BY MOUTH EVERY NIGHT 90 tablet 04/10/20 25 Active metFORMIN (GLUCOPHAGE) 500 mg tabletIndications :Type 2 diabetes mellitus with hyperglycemia, without long-term current use of insulin (HCC) Take 1 tablet (500 mg total) by mouth daily with breakfast 90 tablet 1 04/17/20 25 2025 Active semaglutide (Ozempic) 1 mg/dose (4 mg/3 mL) pen injector injectionIndicati ons:Type 2 diabetes mellitus with hyperglycemia, without long-term current use of insulin (HCC) Inject 1 mg under the skin once a week 9 mL 3 04/17/20 25 2025 Active levothyroxine (SYNTHROID) 175 mcg tabletIndications :Acquired hypothyroidism Take 1 tablet oral 6 days a week and half a tablet on Sundays04/28/20 25 Active acetaZOLAMIDE (DIAMOX) 250 mg tablet TAKE 1 TABLET(250 MG) BY MOUTH TWICE DAILY 60 tablet 1 05/01/20 25 Active topiramate (TOPAMAX) 50 mg tablet TAKE 1 TABLET(50 MG) BY MOUTH TWICE DAILY 60 tablet 06/09/20 25 Active modafiniL (PROVIGIL) 200 mg tablet TAKE 1 TABLET(200 MG) BY MOUTH DAILY 30 tablet 5 06/09/20 25 Active Qulipta 60 mg tablet TAKE 1 TABLET BY MOUTH DAILY 30 tablet 06/30/20 25 Active topiramate (TOPAMAX) 50 mg tablet Take 1 tablet (50 mg total) by mouth 2 (two) times a day 60 tablet 05/07/20 25 2024 Discontinued modafiniL (PROVIGIL) 200 mg tablet TAKE 1 TABLET(200 MG) BY MOUTH DAILY 30 tablet 05/12/20 25 2024 Discontinued Qulipta 60 mg tablet TAKE 1 TABLET BY MOUTH DAILY 30 tablet 06/03/20 25 2024 Discontinued Active Problems Problem Noted Date Diagnosed Date Chronic abdominal pain 03/13/2025 History of gastric ulcer 03/13/2025 Current chronic use of systemic steroids 025 Type 2 diabetes mellitus without complication Lupus erythematosus 03/13/2025 Primary Sjogren's syndrome 03/13/2025 Hx of gastric ulcer 03/13/2025 Epistaxis 04/12/2024 Assessment & Plan (04/12/2024 10:21 [...] Hyperlipidemia associated with type 2 diabetes m antonio 03/12/2021 Assessment & Plan (10/15/2024 2:42 PM RELIGIOUS EDUCATION COORDINATOR): Continue statin therapy Assessment & Plan (03/14/2024 4:11 PM CDT): Continue statin therapy Assessment & Plan (08/15/2023 2:47 PM RELIGIOUS EDUCATION COORDINATOR): Chronic problem. On statin therapy, no changes. Assessment & Plan (11/28/2022 3:53 PM RELIGIOUS EDUCATION COORDINATOR): Continue statin therapy Assessment & Plan (05/30/2022 8:11 AM CDT): Patient on statin therapy Tolerating well Assessment & Plan (05/03/2021 10:22 AM CDT): Patient on statin therapy Tolerating well Leukopenia 11/26/2020 Type 2 diabetes mellitus wit h hyperglycemia, without long-term current use of insulin 09/03/2020 Assessment & Plan (10/15/2024 2:43 PM RELIGIOUS EDUCATION COORDINATOR): Chronic, overall well controlled A1c 5.7%, at [...] months Assessment & Plan (08/15/2023 2:59 PM RELIGIOUS EDUCATION COORDINATOR): Chronic problem, at goal but with more [...] exam. Assessment & Plan (11/28/2022 3:51 PM RELIGIOUS EDUCATION COORDINATOR): Chronic, progressive improvement A1c 4.8% Advised to [...] months Assessment & Plan (11/06/2020 2:22 AM RELIGIOUS EDUCATION COORDINATOR): Sugars controlled. Patient is on metformin at home. Low-dose sliding scale. Assessment & Plan (09/05/2020 5:28 PM RELIGIOUS EDUCATION COORDINATOR): Newly diagnosed Worsening BS A1c - 11.1 [...] 06/25/2020 Assessment & Plan (10/15/2024 2:42 PM RELIGIOUS EDUCATION COORDINATOR): Chronic, improving control Continue lisinopril Assessment & Plan (03/14/2024 4:11 PM CDT): Chronic, improving control Continue lisinopril Assessment & Plan (08/15/2023 2:58 PM RELIGIOUS EDUCATION COORDINATOR): Controlled on lisinopril. No changes. Assessment & Plan (11/28/2022 3:53 PM RELIGIOUS EDUCATION COORDINATOR): Chronic, improving control Continue lisinopril Assessment & Plan (05/30/2022 8:11 AM CDT): Chronic, well controlled Continue current medication regimen Assessment & Plan (05/03/2021 10:22 AM CDT): Chronic, well controlled Continue current medication regimen Assessment & Plan (03/12/2021 11:40 AM CDT): Controlled on current meds. Assessment & Plan (11/06/2020 2:23 AM RELIGIOUS EDUCATION COORDINATOR): Blood pressures are low normal at this time. Will hold Lasix for now. Lisinopril has been resumed with hold parameters. Will continue to monitor. Gastroesophageal reflux disease without esophagi tis 06/25/2020 History of migraine 06/25/2020 Mixed anxiety and depressive disorder 06/25/2020 Assessment & Plan (11/06/2020 2:23 AM RELIGIOUS EDUCATION COORDINATOR): Continue home medications Peripheral venous insufficiency 06/25/2020 [...] 03/09/2017 Assessment & Plan (10/15/2024 2:41 PM RELIGIOUS EDUCATION COORDINATOR): Chronic, unknown status Patient currently on levothyroxine 175 mcg oral daily Recheck thyroid function test today and further plans based on it Assessment & Plan (03/14/2024 4:10 PM CDT): Chronic, unknown status Patient currently on levothyroxine 175 mcg oral daily Recheck thyroid function test and further plans based on it Assessment & Plan (08/15/2023 2:47 PM RELIGIOUS EDUCATION COORDINATOR): Clinically and biochemically euthyroid. No medication changes. Assessment & Plan (11/28/2022 3:52 PM RELIGIOUS EDUCATION COORDINATOR): Continue continue current dose of levothyroxine therapy [...] taken. Assessment & Plan (11/06/2020 2:21 AM RELIGIOUS EDUCATION COORDINATOR): Continue levothyroxine Assessment & Plan (09/05/2020 5:26 PM RELIGIOUS EDUCATION COORDINATOR): Reviewed pt recent thyroid lab results Advise [...] taken. Assessment & Plan (09/10/2019 9:31 AM RELIGIOUS EDUCATION COORDINATOR): Reviewed pt recent thyroid lab results Based [...] Morbid obesity with BMI of 45.0-49.9, adult /05/2017 Assessment & Plan (10/15/2024 2:42 PM RELIGIOUS EDUCATION COORDINATOR): Encouraged to keep working on healthy lifestyle habits Assessment & Plan (03/14/2024 4:11 PM CDT): Chronic, trouble losing weight Weight up and down Increased cravings Try topiramate XR 25 oral daily Advised patient to work on her cravings by replacing with healthy alternate food choices when eating Assessment & Plan (11/28/2022 3:51 PM RELIGIOUS EDUCATION COORDINATOR): Chronic, progressively improving Lost up to 32 [...] therapy Assessment & Plan (09/05/2020 5:27 PM RELIGIOUS EDUCATION COORDINATOR): Chronic, pt loosing weight due to worsening [...] phentermine Assessment & Plan (09/10/2019 9:31 AM RELIGIOUS EDUCATION COORDINATOR): Unchanged treatment and lifestyle modifications Counseled again [...] fruit juices and regular soda and desserts discussed about Bariatric surgery - and gave [...] 03/09/2017 Assessment & Plan (11/06/2020 2:23 AM RELIGIOUS EDUCATION COORDINATOR): Patient wearing her home CPAP Assessment & [...] (08/29/2022): Added automatically from request for surgery [id number] Abnormal ECG 03/12/2021 07/04/2023 Assessment & Plan (03/12/2021 11:40 AM CDT): ECG shows LAFB with RBBB. Echo shows normal LV function. No further testing required. Weakness of both lower extremities 11/05/2020 07/04/2023 Assessment & Plan (11/06/2020 2:23 AM RELIGIOUS EDUCATION COORDINATOR): Patient seen by Neurology. Workup per Neurology. Fall precautions. Patient may become anxious for MRI, will order 1 time dose of Ativan to be given p.r.n. 30 minutes prior to MRI. 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 03/23/2017 07/04/2023 Encounters Date Type Department Care Team Description 5 Results Follow-Up [facility] Gastroenterology at [address] [place] [address] Taz Laughlin, Surgical pathology 5 7:33 AM CDT Anesthesia Event [address] [address] William Garcia MD [place], Chelsea Couch, COOK CANDY 5 7:30 AM CDT - 5 8:00 AM CDT Surgery [address] [address] Taz Laughlin, ESOPHAGOGASTRODUODENOSCOPY BIOPSY 5 6:41 AM CDT - 5 8:24 AM CDT Hospital Encounter [address] [address] Taz Laughlin, Chronic abdominal pain; Hx of gastric ulcer Discharge Disposition: Discharge to home or self care 5 Telephone [facility] Gastroenterology at [address] [place] [address] Floridalma Brannon LPN 5 7:30 AM CDT Lab [address] [phone] Cystitis 5 Results Follow-Up [facility] Gastroenterology at [address] [place] [address] Edilma Restrepo PA Urinalysis reflex to microscopic and culture Urine, Urinalysis, microscopic only, Urine culture Urine 5 Telephone [facility] Gastroenterology at [address] [place] [phone] Floridalma Brannon LPN 5 Results Follow-Up [facility] Gastroenterology at [address] [place] [phone] Abdomen Pelvis W Contrast 5 Results Follow-Up [facility] [address] [address] Cecelia Kasper MD Vitamin D 25 hydroxy, Thyroid Function [place], Lipid panel, Additional followed-up results: 5 5 7:03 AM CDT - 5 11:59 PM CDT Hospital Encounter [facility] [address] [place] [address] Chronic abdominal pain; History of gastric ulcer; Hepatic steatosis; Chronic diarrhea; Autoimmune disease; History of anemia; History of cholecystectomy Discharge Disposition: Discharge to home or self care [address] [address] VenkatEdwin 5 2:30 PM CDT Lab [address] [address] Vitamin D deficiency; Acquired hypothyroidism; Type 2 diabetes mellitus with hyperglycemia, without long-term current use of insulin (HCC) 5 2:00 PM CDT Office Visit [facility] [address] [address] Cecelia Kasper MD Type 2 diabetes mellitus with hyperglycemia, without long-term current use of insulin (HCC) (Primary Dx); Acquired hypothyroidism; Hyperlipidemia associated with type 2 diabetes mellitus (HCC); Hypertension associated with diabetes (HCC); Morbid obesity with BMI of 40.0-44.9, adult (HCC); Vitamin D deficiency 5 Orders Only [facility] Endocr[facility]ology [address] [place] [phone] Provider, MD Keena from Last 3 Months Immunizations Immunization Administration Dates Next Due Influenza, Quadrivalent, Split, Intramuscular ,08/11/2022 Influenza, Unspecified 08/02/2022 Pfizer SARS-CoV-2 Monovalent Vaccination (12+ Yrs) PURPLE 09/18/2021 Sars-cov-2 Covid-19 Mrna, Bi valent, Original/omicron Ba.1 10/28/2024 Tdap 07/16/2023 Surgical History Surgery Date Site/Laterality Comments TUBAL LIGATION tubaligation APPENDECTOMY Appendectomy CHOLECYSTECTOMY Cholecystectomy FL FLUORO GUIDED LUMBAR PUNCTURE 07/17/2019 Right ANKLE SURGERY , patient fx her right ankle and did not have surgery COLONOSCOPY 06/14/2023 last colonoscopy 2017, previous polyps UPPER GASTROINTESTINAL ENDOSCOPY TOTAL HIP ARTHROPLASTY Bilateral Medical History Medical History Date Comments Antiphospholipid syndrome PONV (postoperative nausea and vomiting) GERD (gastroesophageal reflux disease) Motion sickness Hypothyroidism MDD (major depressive disorder) DM (diabetes mellitus) DJD (degenerative joint disease) Sjogren's disease HLD (hyperlipidemia) HTN (hypertension) Hip dysplasia IBS (irritable bowel syndrome) ENRIQUE (obstructive sleep apnea) RA (rheumatoid arthritis) Morbid obesity (HCC) Metabolic dysfunction-associated steatotic liver disease (MASLD) Gastric ulcer Vitamin D deficiency Family History Medical History Relation Name Comments [...] Not Answered Alcohol Use Standard Drinks/Week Comments Never 0 (1 standard drink = 0.6 oz pur e alcohol) PHQ-2 Answer Date Recorded PHQ-2 Total Score (If total score is 3 or more points, staff should administer the PHQ-9) 2 03/14/2024 AUDIT-C Answer Date Recorded Q1: How often do you have a drink containing alcohol? Never 05/19/2025 Q2: How many drinks containi ng alcohol do you have on a typical day when you are drinking? Patient does not drink Q3: How often do you have si x or more drinks on one occasion? Never 05/19/2025 Personal Safety Answer Date Recorded Have you ever been in or are you currently in a harmful physical or emotional relationship or is someone making you feel afraid or unsafe? Denies 05/19/2025 Comments No Sex and Gender Information Value Date Recorded Sex Assigned at Not on file Legal Sex Female 6:23 PM RELIGIOUS EDUCATION COORDINATOR Gender Identity Female 02/27/2020 1:04 PM CDT Sexual Orientation Not on file Obstetrics History Para Term AB IAB SAB Ectopic Multiple Livin g Live Births 3 3 3 Date Outcome GA Total Labor Labor/2nd/3rd Weight Sex Type Anes PTL Kandace A1 A5 Name Clin Term Term Term Last Filed Vital Signs Vital Sign Reading Time Taken Comments Blood Pressure 102/63 05/19/2025 8:16 AM CDT Pulse 69 05/19/2025 8:16 AM CDT Temperature 36.2 C (97.1 F) 05/19/2025 8:16 AM CDT Respiratory Rate 16 05/19/2025 8:16 AM CDT Oxygen Saturation 98% 05/19/2025 8:16 AM CDT Inhaled Oxygen Concentration - - Weight 118.8 kg (262 lb) 05/19/2025 7:07 AM CDT Height 167.6 cm (5' 6) 05/19/2025 7:07 AM CDT Body Mass Index 42.29 05/19/2025 7:07 AM CDT Plan of Treatment Health Maintenance Due Date Last Done Comments Cervical Cancer Screening 1971 Hepatitis B Screening 1989 Regular Well Visit/Exam 18-64 1989 Pneumococcal vaccine <65 (1 of 2 - PCV) 1990 Zoster Vaccine (1 of 2) 2021 Depression Screening 03/14/2025 03/14/2024, 05/18/2023, 11/15/2022, Additional history exists Breast Cancer Screening-Mammogram 04/05/2025 04/05/2024, 04/29/2022, 01/09/2021, Additional history exists Covid-19 Vaccine ( - 2024-2 6 season) 2025 10/28/2024, 09/18/2021, 02/02/2021, Additional history exists Influenza Vaccine (#1) 2025 , 08/11/2022, 08/02/2022 Foot Exam 10/15/2025 10/15/2024, 03/02, 08/15/2023 Hemoglobin A1C 10/18/2025 04/17/2025, 10/02, 03/14/2024, Additional history exists Dilated Eye Exam 04/12/2026 04/12/2025, 11/2023, 04/16/2022, Additional history exists Albumin Creatinine Ratio, Urine 04/17/2026 04/17/2025, 03/14/2024, 12/30/2022, Additional history exists Lipid Panel 04/17/2026 04/17/2025, 03/02, 12/30/2022, Additional history exists eGFR 04/17/2026 04/17/2025, 03/02, 01/04/2025, Additional history exists Colon Cancer Screening-Colonoscopy 06/14/20332022, 04/27/2018 DTaP/Tdap/Td Vaccine (2 - Td or Tdap) 07/16/2033 07/16/2023 Hepatitis C Screening Completed 09/29/2020 , 12/04/2017, 05/11/2016 Medical Devices Implanted Type Area Check Pilot Device Identifier Shelf Expiration Date Model / Serial / Lot [employer] [id number] Makinen 56mm Sector Hip Shell Acetabular Gription Sterile Latex Free - [id number] Implanted:Qty: 1 on 03/15/2021 by Caleb Zacarias MD at [facility] Right: Hip [employer] 01/29/2031 [id number] / / [id number] [employer] [id number] Aetabular Cup Hip Makinen Dm 56 49 - [id number] Implanted:Qty: 1 on 03/15/2021 by Caleb Zacarias MD at [facility] Right: Hip [employer] 11/29/2030 [id number] / / [id number] [employer] 1217-35-500 Makinen 6.5mm 35mm Acetabular Cancellous Screw Bone Sterile - [id number] Implanted:Qty: 1 on 03/15/2021 by Caleb Zacarias MD at [facility] Right: Hip [employer] 01/29/2031 1217-35-500 / / [id number] [employer] [id number] Actis L107 Mm Collar Hip 6 High Offset Stem Femoral - [id number] Implanted:Qty: 1 on 03/15/2021 by Caleb Zacarias MD at [facility] Right: Hip [employer] 11/29/2030 [id number] / / [id number] [employer] [id number] Liner Acetabular Bi Mentum Polyethylene Od49mm Id28mm Femoral Proximal - [id number] Implanted:Qty: 1 on 03/15/2021 by Caleb Zacarias MD at [facility] Right: Hip [employer] 07/01/2024 [id number] / / [id number] [employer] [id number] Articul/Tonny 28mm Cementless Hip +1.5mm 12/14 Taper Head Femoral Latex Free - [id number] Implanted:Qty: 1 on 03/15/2021 by Caleb Zacarias MD at [facility] Right: Hip [employer] 12/30/2025 [id number] / / [id number] [employer] Articul/Tonny 28mm Cementless Hip +1.5mm 12/14 Taper Head Femoral Latex Free [id number] - [id number] Implanted:Qty: 1 on 09/05/2022 by Caleb Zacarias MD at [facility] [employer] [id number] 05/01/2026 [id number] / / [id number] [employer] Actis L107 Mm Collar Hip 6 High Offset Stem Femoral [id number] - [id number] Implanted:Qty: 1 on 09/05/2022 by Caleb Zacarias MD at [facility] [employer] [id number] 06/01/2032 [id number] / / [id number] [employer] Bi Mentum 47mm 28mm Femoral Proximal Liner Acetabular [id number] - [id number] Implanted:Qty: 1 on 09/05/2022 by Caleb Zacarias MD at [facility] Left: Hip [employer] [id number] 01/29/2026 [id number] / / [id number] [employer] Liner Aetabular Cup Hip Makinen Dm 54 47 [id number] - [id number] Implanted:Qty: 1 on 09/05/2022 by Caleb Zacarias MD at [facility] [employer] [id number] 03/31/2031 [id number] / / [id number] [employer] Makinen 54mm Sector Hip Shell Acetabular Gription Sterile Latex Free [id number] - [id number] Implanted:Qty: 1 on 09/05/2022 by Caleb Zacarias MD at [facility] [employer] [id number] 07/01/2032 [id number] / / [id number] [employer] Makinen 6.5mm 35mm Acetabular Cancellous Screw Bone Sterile 1217-35-500 - [id number] Implanted:Qty: 1 on 09/05/2022 by Caleb Zacarias MD at [facility] [employer] [id number] 07/01/2032 1217-35-500 / / [id number] Procedures Procedure Name Priority Date/Time Associated Diagnosis Comments SURGICAL PATHOLOGY STAT 05/19/2025 11:44 AM CDT Chronic abdominal pain Hx of gastric ulcer EGD 05/19/2025 7:28 AM CDT ESOPHAGOGASTRODUODENOSCOPY BIOPSY 05/19/2025 7:28 AM CDT Chronic abdominal pain Hx of gastric ulcer POCT GLUCOSE DEVICE Routine 05/19/2025 7:22 AM CDT URINALYSIS, MICROSCOPIC ONLY Routine 01/2025 7:30 AM CDT Cystitis URINE CULTURE Routine 05/06/2025 7:30 AM CDT URINALYSIS AND REFLEX TO MICROSCOPIC AND CULTURE Routine 05/06/2025 7:[address] ABDOMEN PELVIS W CONTRAST Schedule Routine, Read Routine (OP Routine) 04/21/2025 8:45 AM CDT Chronic abdominal pain History of gastric ulcer Hepatic steatosis Chronic diarrhea Autoimmune disease History of anemia History of cholecystectomy T3, FREE Routine 04/17/2025 2:27 PM CDT EGFR Routine 04/17/2025 2:27 PM CDT Type 2 diabetes mellitus with hyperglycemia, without long-term current use of insulin (HCC) T4, FREE Routine 04/17/2025 2:27 PM CDT Acquired hypothyroidism ALBUMIN CREATININE RATIO, URINE Routine 04/17/2025 2:27 PM CDT Type 2 diabetes mellitus with hyperglycemia, without long-term current use of insulin (HCC) COMPREHENSIVE METABOLIC PANEL Routine 2:27 PM CDT Type 2 diabetes mellitus with hyperglycemia, without long-term current use of insulin (HCC) LIPID PANEL Routine 04/17/2025 2:27 PM CDT Type 2 diabetes mellitus with hyperglycemia, without long-term current use of insulin (HCC) THYROID FUNCTION CASCADE Routine 2:27 PM CDT Acquired hypothyroidism VITAMIN D 25 HYDROXY Routine 04/17/2025 2:27 PM CDT Vitamin D deficiency POCT HEMOGLOBIN A1C Routine 04/17/2025 1:54 PM CDT Type 2 diabetes mellitus with hyperglycemia, without long-term current use of insulin (HCC) POCT GLUCOSE Routine 04/17/2025 1:54 PM CDT Type 2 diabetes mellitus with hyperglycemia, without long-term current use of insulin (HCC) HM DIABETES EYE EXAM Routine 04/12/2025 8:15 AM CDT SCREENING MAMMOGRAM BILATERA L [facility] Schedule Routine, Read Routine (OP Routine) 04/05/2024 7:46 AM CDT Encounter for screening mammogram for malignant neoplasm of breast COLONOSCOPY 06/14/2023 1:56 PM CDT HEPATITIS PANEL, ACUTE Routine 9:30 AM RELIGIOUS EDUCATION COORDINATOR Leukopenia, unspecified type from Last 3 Months or Most Recently Relevant to Health Maintenance Results * Surgical pathology (05/19/2025 11:44 AM CDT) Tissue (Gastric/Stomach biopsy) 05/19/2025 7:42 AM CDT Narrative PATHOLOGY [facility] - 05/20/2025 2:55 PM CDT EPIC results best viewed via link to PDF [facility] Department of Pathology [address] [place] [address] Note to Patients: This report may contain a detailed description of human tissue sent by a health care provider to the laboratory for pathologic evaluation. The content of this report is essential for diagnosis and may provide important critical findings. This information may be unfamiliar to patients to review without a medical professional present. It is advised that the patient review this report in the presence of a health care provider who can answer questions and explain the details. Final Report Patient Name: MELISSA PEÑA Address: [address] [place], [place] [id number] Gender: F : 1970 (Age: 55) Service: Gastro Location: [facility] Hospital #: [id number] Patient Type: [facility] Taken: 05/19/2025 Received: 05/19/2025 Accessioned: 05/19/2025 Reported: 05/20/2025 Physician(s):Dr. Taz Laughlin D.O. Diagnosis: Stomach, biopsy: - Antral type gastric mucosa showing mild chronic inactive gastritis. - Negative for intestinal metaplasia and dysplasia. - Negative for Helicobacter. Esteban Orourke M.D. Report Electronically Reviewed and Signed Out By Esteban Orourke M.D. 05/20/2025 14:55:32 Specimen(s) Received: A: Gastric biopsies for H. pylori Microscopic Description: Sections show antral-type gastric mucosa showing mild chronic inactive gastritis. No significant acute inflammatory infiltrate is seen. There is no evidence of intestinal metaplasia or dysplasia. In order to classify the gastritis further, a Helicobacter immunohistochemical stain was performed with adequate controls and is negative. Clinical History: Chronic abdominal pain. History of gastric ulcer. EGD. Gross Description: The specimen is submitted in a single formalin filled container labeled [facility] and gastric biopsies for H pylori. It is 2 ni tissue fragments measuring 2 mm. All in one cassette. Aniyah Patrick R.N., P.A./Goldie Spain M.D. REPORT IMAGES AND SCANNED DOCUMENTS, IF INCLUDED, ONLY VIEWABLE IN PDF VERSION OF REPORT The performance characteristics of some immunohistochemical stains, fluorescence in-situ hybridization tests and immunophenotyping by flow cytometry cited in this report (if any) were determined by the Surgical Pathology Department at [facility] as part of an ongoing quality assurance assessor program and in compliance with federally mandated regulations drawn from the Clinical Laboratory Improvement Act of 1988 (CLIA '88). Some of these tests rely on the use of analyte specific reagents and are subject to specific labeling requirements by the US Food and Drug Administration. Such diagnostic tests may only be performed in a facility that is certified by the Department of Health and Human Services as a high complexity laboratory under CLIA '88. The FDA has determined that such clearance or approval is not necessary. This test is used for clinical purposes. It should not be regarded as investigational or for research. Nevertheless, federal rules concerning the medical use of analyte specific reagents require that the following disclaimer be attached to the report: This test was developed and its performance characteristics determined by the Surgical Pathology Department [facility]. It has not been cleared or approved by the U. S. Food and Drug Administration. Note for decalcified specimens: This assay has not been validated on decalcified tissues. Results should be interpreted with caution given the possibility of false negativity on decalcified specimens Taz Laughlin DO LAB PATHOLOGY ORDERABLES Final Result PATHOLOGY [facility] ([place]) [address] [place], [place] [id number] * EGD (05/19/2025 7:28 AM CDT) Anatomical Region Laterality Modality Other Narrative Procedure Note Taz Laughlin DO - 05/19/2025 7:28 AM CDT [facility] Patient Name: Melissa Peña Procedure Date: 05/19/2025 7:28 AM Date of : 1970 Admit Type: Outpatient Age: 55 Gender: Female Attending MD: Taz Laughlin D.O., Room: [facility] ENDOSCOPY ROOM 2 Note Status: Finalized Patient Profile: Refer to note in patient chart for documentation of history and physical. Procedure: Upper GI endoscopy Indications: Epigastric abdominal pain, Abdominal pain in theright upper quadrant Referring MD: Roselyn Mcgrath M.D. Providers: Taz Laughlin D.O. Impression: - Normal esophagus. - Normal stomach. Biopsied. - Normal examined duodenum. Recommendation: - Await pathology results. - Return to primary care physician PRN. -Follow up with GI nurse practitioner as previously scheduled. Medicines: Monitored Anesthesia Care Complications: No immediate complications. Estimated Blood Loss: Estimated blood loss was minimal. Procedure: Pre-Anesthesia Assessment: - As per anesthesia. The benefits, risks, and alternatives to theprocedure and sedation were discussed and informed consentwas obtained. The scope was passed under direct vision. The Endoscope [id number]-[id number] was introduced through the mouth, and advanced to the second partof duodenum. The upper GI endoscopy was accomplished without difficulty. The patient tolerated the procedure well. Findings: The examined esophagus was normal. The entire examined stomach was normal. Biopsies were taken with acold forceps for Helicobacter pylori testing. The examined duodenum was normal. Electronically signed by Taz Laughlin M.D. Taz Laughlin D.O. 05/19/2025 7:52:05 AM Number of Addenda: 0 Note Initiated On: 05/19/2025 7:28 AM Procedure Code(s): --- Professional --- 71995, Esophagogastroduodenoscopy, flexible, transoral; with biopsy, single or multiple --- Technical --- 05906, Esophagogastroduodenoscopy, flexible, transoral; with biopsy, single or multiple Diagnosis Code(s): --- Professional --- R10.13, Epigastric pain R10.11, Right upper quadrant pain --- Technical --- R10.13, Epigastric pain R10.11, Right upper quadrant pain CPT copyright 2022 [employer]. All rights reserved. The codes documented in this report are preliminary and upon bowling pin setters installer reviewmay be revised to meet current compliance requirements. Recognized by the [employer] [place] [employer] for promoting quality in endoscopy us Taz Laughlin DO ENDOSCOPY PROCEDURES Final Res ult * POCT glucose (05/19/2025 7:22 AM CDT) Glucose, POC 77 70 - 199 mg/dL Blood 05/19/2025 7:22 AM CDT 05/19/2025 7:22 AM CDT Taz Laughlin DO LAB POCT ORDERABLES - DEVICE F inal Result [facility] ([place]) 1 [facility] Department [place] [address] * (ABNORMAL) Urinalysis reflex to microscopic and culture Urine (05/06/2025 7:30 AM CDT) Color, ur Yellow Yellow Clarity, ur Turbid(A) Clear [facility] ([place]) Specific gravity, ur 1.023 1.003 - 1.030 [facility] ([place]) pH, urine 6.5 [facility] ([place]) Comment: Interpretive Data U rine pH is affected by diet, medications, systemic acid-base disturbances, and renal tubular function. pH may affect urinary stone formation. For example, urine pH below 6.0 may help reduce the tendency for calcium phosphate stones and pH greater than 6.0 may reduce the tendency for uric acid stone formation. Source: [facility] Current Interpretive Data was last revised on 2017 Protein, ur ql Trace Negative [facility] R [facility] ([place]) Glucose, ur ql Negative Negative [facility] R [facility] ([place]) Ketones, ur Negative Negative [facility] ([place]) Bilirubin, ur Negative Negative [facility] ([place]) Blood, ur Negative Negative [facility] ([place]) Urobilinogen, ur 2.0(A) <2.0 mg/dL [facility] ([place]) Nitrite, ur Negative Negative [facility] ([place]) Leukocyte esterase, ur 4+(A) Negative [facility] ([place]) UA reflex comment Reflex to microscopic UA will be performed. [facility] ([place]) Urine 05/06/2025 7:30 AM CDT 05/06/2025 7:48 AM CDT Edilma THOMSON LAB MICROBIOLOGY - GENER AL ORDERABLES Final Result Performing Organization Address [facility] de Phone Number TRUNG [facility] ([place]) [address] [place] [address] * (ABNORMAL) Urinalysis, microscopic only (05/06/2025 7:30 AM CDT) WBC, ur >50(A) 0 - 5 /HPF RBC, ur 3-5(A) 0 - 2 /HPF [facility] ([place]) Epithelial cells, squamous, ur 11-20(A) 0 - 5 /HPF [facility] ([place]) Mucous, ur Present(A) C[facility]ER A ([place]) Culture Reflex Comment Reflex to urine culture will be performed. [facility] ([place]) Urine 05/06/2025 7:30 AM CDT 05/06/2025 7:48 AM CDT Edilma THOMSON LAB URINE ORDERABLES Fin al Result Performing Organization Address [facility] de Phone Number SISIHARRIET [facility] ([place]) [address] [place] [address] * (ABNORMAL) Urine culture Urine (05/06/2025 7:30 AM CDT) Report Final Report: Greater than or equal to 100,000 colonies/mL of Escherichia coli Plus growth of clinically insignificant bacterial loraine. (.) Comment:Testing performed by : [facility], [address] [facility], [place]., [address] Organism ESCHERICHIA COLI CER NER [facility] ([place]) Organism PLUS GROWTH OF CLINICALLY INSIGNIFICANT LORAINE. TRUNG [facility] ([place]) Urine 05/06/2025 7:30 AM CDT 05/06/2025 11:29 AM CDT Narrative [facility] ([place]) - 05/08/2025 10:45 PM CDT Urine culture reflexed based upon urinalysis results. Testing performed by [facility] Microbiology Laboratory ([phone]) Organism Antibiotic Method Susceptibility Escherichia coli Ampicillin INTERPRETATION Resistant Escherichia coli Cefazolin INTERPRETATION Susceptible Escherichia coli Nitrofurantoin INTERPRETATION Susceptible Escherichia coli Gentamicin INTERPRETATION Susceptible Escherichia coli Trimethoprim with Sulfamethoxazole IN TERPRETATION Susceptible Escherichia coli Meropenem INTERPRETATION Susceptible Escherichia coli Cefepime INTERPRETATION Susceptible Escherichia coli Ciprofloxacin INTERPRETATION Susceptible Escherichia coli Ceftazidime INTERPRETATION Susceptible Escherichia coli Ceftriaxone INTERPRETATION Susceptible Escherichia coli Piperacillin/Tazobactam INTERPRETATIO N Resistant Escherichia coli Cephalexin INTERPRETATION Susceptible Escherichia coli Cefuroxime-axetil INTERPRETATION Susceptible Escherichia coli Cefdinir INTERPRETATION Susceptible us Edilma THOMSON LAB MICROBIOLOGY - [facility] AL ORDERABLES Final Result [facility]G [facility] ([place]) 1 [facility] Department [place] [address] * CT Abdomen Pelvis W Contrast (04/21/2025 8:45 AM CDT) Anatomical Region Laterality Modality Body N/A Computed Tomogra phy 04/28/2025 1:00 PM CDT Narrative 04/28/2025 1:03 PM CDT EXAM DESCRIPTION: CT ABDOMEN PELVIS W CONTRAST REASON FOR STUDY: Has chronic abdominal pain and diarrhea. Abdominal pain is worse in right upper quadrant. History of cholecystectomy [address] to further evaluate. RLQ pain and IBS for over 20 years, pain is intermittent, sometimes pain is severe. Hx of cholecystectomy and appendectomy. TECHNIQUE: CT scan of the abdomen and pelvis performed with intravenous and with oral contrast using helical scanning technique with dynamic intravenous contrast injection. Reconstructed coronal and sagittal MPR images reviewed. All images stored on PACS. Automated exposure control was used as a dose optimization technique for this examination. CONTRAST TYPE/DOSE: 100mL of IOVERSOL 350 MG IODINE/ML INTRAVENOUS SYRINGE injected via intravenous COMPARISON: None FINDINGS: LOWER CHEST: No significant pulmonary abnormalities. No effusion. LIVER: Normal size. No identified cystic or solid masses. GALLBLADDER: Surgically absent. BILE DUCTS: No intrahepatic or extrahepatic ductal dilatation. SPLEEN: Enlarged at 16.7 cm. PANCREAS: No identified cystic or solid masses. No significant calcifications. No adjacent inflammation or peripancreatic fluid collections. Pancreatic duct not dilated. ADRENALS: Normal. KIDNEYS/URINARY TRACT: 1 cm right renal cyst. There is thickened enhancement of the wall of the right renal pelvis and proximal right ureter with some mild stranding in the right perinephric and periureteral fat concerning for right pyeloureteritis. Recommend correlation with clinical and laboratory findings. No evidence of hydronephrosis or nephrolithiasis. Diffuse thickening of the wall of the urinary bladder with some stranding in the perivesical fat suggesting cystitis. GI: No dilated bowel loops. No obvious wall thickening. Appendix surgically absent. No significant diverticular disease. PERITONEUM: No ascites or free air. RETROPERITONEUM: No mass or adenopathy. REPRODUCTIVE: No significant abnormality. VASCULATURE: No abdominal aortic aneurysm. MUSCULOSKELETAL: No significant abnormality. Images of the pelvis are limited by artifact from the patient's bilateral hip arthroplasties. OTHER: No other abnormality. IMPRESSION: 1. Thickened enhancement of the wall of the right renal pelvis and proximal right ureter with some mild stranding in the right perinephric and periureteral fat concerning for right pyeloureteritis. Recommend correlation with clinical and laboratory findings. 2. Diffuse thickening of the wall of the urinary bladder with some stranding in the perivesical fat suggesting cystitis. 3. 1 cm right renal cyst. 4. Surgical absence of the gallbladder. 5. Mild splenomegaly. THIS IS AN ELECTRONICALLY VERIFIED FINAL REPORT 04/28/2025 1:03 PM - Electronically signed by Gonzalo Dunham M.D. KT: BRUCE Report ID: [id number] Reading Location: [id number] Procedure Note Gonzalo Dunham MD - 04/28/2025 EXAM DESCRIPTION: CT ABDOMEN PELVIS W CONTRAST REASON FOR STUDY: Has chronic abdominal pain and diarrhea. Abdominalpain is worse in right upper quadrant. History of cholecystectomy [address] to further evaluate. RLQ pain and IBS for over 20 years, pain is intermittent, sometimes painis severe. Hx of cholecystectomy and appendectomy. TECHNIQUE: CT scan of the abdomen and pelvis performed with intravenousand with oral contrast using helical scanning technique with dynamicintravenous contrast injection. Reconstructed coronal and sagittal MPR imagesreviewed. All images stored on PACS. Automated exposure control was used as a dose optimization technique for this examination. CONTRAST TYPE/DOSE: 100mL of IOVERSOL 350 MG IODINE/ML INTRAVENOUSSYRINGE injected via intravenous COMPARISON: None FINDINGS: LOWER CHEST: No significant pulmonary abnormalities. No effusion. LIVER: Normal size. No identified cystic or solid masses. GALLBLADDER: Surgically absent. BILE DUCTS: No intrahepatic or extrahepatic ductal dilatation. SPLEEN: Enlarged at 16.7 cm. PANCREAS: No identified cystic or solid masses. No significant calcifications. No adjacent inflammation or peripancreatic fluidcollections. Pancreatic duct not dilated. ADRENALS: Normal. KIDNEYS/URINARY TRACT: 1 cm right renal cyst. There is thickened enhancement of the wall of the right renal pelvis and proximal rightureter with some mild stranding in the right perinephric and periureteral fat concerning for right pyeloureteritis. Recommend correlation with clinicaland laboratory findings. No evidence of hydronephrosis or nephrolithiasis. Diffuse thickening of the wall of the urinary bladder with some strandingin the perivesical fat suggesting cystitis. GI: No dilated bowel loops. No obvious wall thickening. Appendixsurgically absent. No significant diverticular disease. PERITONEUM: No ascites or free air. RETROPERITONEUM: No mass or adenopathy. REPRODUCTIVE: No significant abnormality. VASCULATURE: No abdominal aortic aneurysm. MUSCULOSKELETAL: No significant abnormality. Images of the pelvis are limited by artifact from the patient's bilateral hip arthroplasties. OTHER: No other abnormality. IMPRESSION: 1. Thickened enhancement of the wall of the right renal pelvis andproximal right ureter with some mild stranding in the right perinephric and periureteral fat concerning for right pyeloureteritis. Recommendcorrelation with clinical and laboratory findings. 2. Diffuse thickening of the wall of the urinary bladder with somestranding in the perivesical fat suggesting cystitis. 3. 1 cm right renal cyst. 4. Surgical absence of the gallbladder. 5. Mild splenomegaly. THIS IS AN ELECTRONICALLY VERIFIED FINAL REPORT 04/28/2025 1:03 PM - Electronically signed by Gonzalo Dunham M.D. KT: KT Report ID: [id number] Reading Location: [id number] us Sidney [place] [employer] ARCHITECT IMG CT PROCEDURES F inal Result * eGFR (04/17/2025 2:27 PM CDT) eGFR 82 >=60 mL/min/1. 73 m2 Comment: Interpretive Data Reference Interval Normal >/= 90 [...] interpretive data was last reviewed 2021. Blood 04/17/2025 2:27 PM CDT 04/17/2025 4:08 PM CDT us Cecelia Chandra MD LAB BLOOD ORDERABLE S Final Result Performing Organization Address City/[facility]/ZIP Co de Phone Number [facility] [id number] Department [place] [address] * (ABNORMAL) Thyroid Function [place] (04/17/2025 2:27 PM CDT) TSH 0.11(L) 0.30 - 4.20 mcIUnit/mL Blood 04/17/2025 2:27 PM CDT 04/17/2025 3:46 PM CDT Cecelia Chandra MD LAB BLOOD ORDERABLE S Final Result TRUNG [id number] [facility] [place] [address] * Albumin Creatinine Ratio, Urine (04/17/2025 2:27 PM CDT) Pathologist [facility] Albumin Ur <12.0 mg/L Comment: Interpretive Data No reference range established. Current interpretive data was last revised 2019. Creatinine Ur 108.3 mg/dL TRUNG Comment: Interpretive Data No reference range established. Current interpretive data was last revised 2019. Albumin Creatinine Ratio, Ur <11 1 - 29 mg/g TRUNG Urine 04/17/2025 2:27 PM CDT 04/17/2025 3:46 PM CDT Cecelia Chandra MD LAB URINE ORDERABLE S Final Result Performing Organization Address [facility] de Phone Number TRUNG [id number] [address] [facility] [place] [address] * Vitamin D 25 hydroxy (04/17/2025 2:27 PM CDT) Pathologist [facility] Vitamin D 25-OH 50 30 - 80 ng/mL Blood 04/17/2025 2:27 PM CDT 04/17/2025 3:46 PM CDT Cecelia Chandra MD LAB BLOOD ORDERABLE S Final Result Performing Organization Address [facility] Co de Phone Number [facility] [address] [address] [facility] [place] [address] * T3, free (04/17/2025 2:27 PM CDT) Pathologist [facility] Free T3 2.3 2.0 - 4.4 pg/mL Blood 04/17/2025 2:27 PM CDT 04/17/2025 4:08 PM CDT Narrative TRUNG CARLSON - 04/17/2025 6:36 PM CDT This test was reflexed from a Free T4 result. Cecelia Chandra MD LAB BLOOD ORDERABLE S Final Result [facility] [place] [address] [place] [address] * T4, free (04/17/2025 2:27 PM CDT) Free T4 1.64 0.90 - 1.70 ng/dL Blood 04/17/2025 2:27 PM CDT 04/17/2025 4:08 PM CDT Cecelia Chandra MD LAB BLOOD ORDERABLE S Final Result Performing Organization Address [facility] Co de Phone Number TRUNG [address] [address] [place] [address] * (ABNORMAL) Lipid panel (04/17/2025 2:27 PM CDT) Cholesterol 165 30 - 199 mg/dL Comment: Interpretive Data Ages < or = 19 years Acceptable: <170 mg/dL Borderline high: 170-199 mg/dL High: >or= 200 mg/dL Ages > or = 20 years Desirable: <200 mg/dL Borderline high: 200-239 mg/dL High: >or= 240 mg/dL Literature References: 1. Expert Panel on Integrated Guidelines for Cardiovascular Health and Risk Reduction in Children and Adolescents. Pediatrics 2011;128:S213 2. NCEP Expert Panel. Circulation 2004;110:227 Current Interpretive Data was last revised on 2018. Triglycerides 151(H) <=149 mg/dL TRUNG CARLSON Comment: Interpretive Data Ages < or = 9 years Acceptable: <75 mg/dL Borderline high: 75-99 mg/dL High: >or= 100 mg/dL Ages 10 to 20 years Acceptable: <90 mg/dL Borderline high: 90-129 mg/dL High: >or= 130 mg/dL Ages > or = 20 years Desirable: <150 mg/dL Borderline high: 150-199 mg/dL High: 200-499 mg/dL Very high: >or= 499 mg/dL Literature References: 1. Expert Panel on Integrated Guidelines for Cardiovascular Health and Risk Reduction in Children and Adolescents. Pediatrics 2011;128:S213 2. NCEP Expert Panel. Circulation 2004;110:227 Current Interpretive Data was last revised on 2018. HDL 39(L) >=40 mg/dL TRUNG CARLSON Comment: Interpretive Data Ages < or = 19 years Acceptable: >45 mg/dL Borderline low: 40-45 mg/dL Low: <40 mg/dL Ages > or = 20 years Desirable: >or= 60 mg/dL Low: <40 mg/dL Literature References: 1. Expert Panel on Integrated Guidelines for Cardiovascular Health and Risk Reduction in Children and Adolescents. Pediatrics 2011;128:S213 2. NCEP Expert Panel. Circulation 2004;110:227 Current Interpretive Data was last revised on 2018. LDL, calculated 99 <=129 mg/dL TRUNG CARLSON Comment: Interpretive Data Ages < or = 19 years Acceptable: <110 mg/dL Borderline high: 110-129 mg/dL High: >or= 130 mg/dL Ages > or = 20 years Optimal: <100 mg/dL Near optimal: 100-129 mg/dL Borderline high: 130-159 mg/dL High: >160 mg/dL Calculated using the Mario LDL-C estimating equation. This equation was implemented on 2024. Prior to this date LDL-C was estimated using the Friedewald equation. Literature References: 1. Expert Panel on Integrated Guidelines for Cardiovascular Health and Risk Reduction in Children and Adolescents. Pediatrics 2011;128:S213 2. NCEP Expert Panel. Circulation 2004;110:227 3. Mario Robins al. [place] Cardiol. 2019January 30;5(5):540-548. doi: 10.1001/[email or web address].2020.0013 Current Interpretive Data was last revised on 2024. Non-HDL Cholesterol 126 mg/dL TRUNG CARLSON Comment: Interpretive Data Ages < or = 19 years Acceptable: <120 mg/dL Borderline high: 120-144 mg/dL High: >145 mg/dL Ages > or = 20 years When triglycerides are >200 mg/dL, Non-HDL cholesterol is a secondary target of therapy with treatment goals that are 30 mg/dL greater than the LDL cholesterol target. Literature References: 1. Expert Panel on Integrated Guidelines for Cardiovascular Health and Risk Reduction in Children and Adolescents. Pediatrics 2011;128:S213 2. NCEP Expert Panel. Circulation 2004;110:227 Current Interpretive Data was last revised on 2018. Chol/HDL ratio 4 [facility] CH Blood 04/17/2025 2:27 PM CDT 04/17/2025 3:46 PM CDT us Cecelia Chandra MD LAB [place]LOOD [place] [address] [address] Department [place] [address] * (ABNORMAL) Comprehensive metabolic panel (04/17/2025 2:27 PM CDT) Sodium 138 135 - 145 mmol/L Potassium, pl 4.2 3.3 - 4.9 mmol/L [facility] CH Chloride 106 97 - 110 mmol/L [facility] CO2 19(L) 22 - 32 mmol/L [facility] Anion gap 13 2 - 15 mmol/L [facility] CH BUN 9 6 - 25 mg/dL [facility] CH Creatinine 0.85 0.60 - 1.10 mg/dL [facility] CH Glucose 99 70 - 199 mg/dL [facility] CH Comment: Interpretive Data Fasting glucose >/= 126 [...] interpretive data was last revised 2022. Calcium 9.0 8.5 - 10.3 mg/dL [facility] CH Bilirubin, total 0.3 0.1 - 1.2 mg/dL [facility] Protein, pl 7.5 6.5 - 8.5 g/dL [facility] Albumin 4.1 3.5 - 5.0 g/dL [facility] Alk phos 112 40 - 130 Units/L [facility] ALT 15 7 - 45 Units/L [facility] AST 16 10 - 45 Units/L [facility] Blood 04/17/2025 2:27 PM CDT 04/17/2025 3:46 PM CDT Cecelia Chandra MD LAB BLOOD ORDERABLE S Final Result TRUNG [place] [address] Department [place] [address] * POCT hemoglobin A1c (04/17/2025 1:54 PM CDT) Hemoglobin A1C, POC 5.2 4.0 - 5.6 % Blood 04/17/2025 1:54 PM CDT Cecelia Chandra MD POINT OF CARE TEST ORDERABLES Final Result * POCT glucose (04/17/2025 1:54 PM CDT) Glucose Blood, POC 100 Normal Fasting 70 - 100, Random <200 mg/dL Blood 04/17/2025 1:54 PM CDT Result [facility] Cecelia Chandra MD POINT OF CARE TEST ORDERABLES Final Result * DIABETES EYE EXAM (04/12/2025 8:15 AM CDT) Historical [facility] Final Result * Screening Mammogram Bilateral [place] (04/05/2024 [...] MAHAMED CUMMINS HISTORY: Routine screening mammography. COMPARISON: 04/29/2022, 07/20/2021 TECHNIQUE: CC and MLO views of the bilateral breasts were obtained with digital technique using breast tomosynthesis with C view. Computer aided detection was utilized. FINDINGS: DENSITY: The tissue of the bilateral breasts is almost entirely fatty. BREASTS: There are stable scattered benign-appearing calcifications bilaterally. There are no suspicious masses, suspicious calcifications, or other suspicious findings in either breast. There has been no suspicious interval change. us Mahamed Cummins MD IMG MAMMO PROCEDURES F inal Result * COLONOSCOPY (06/14/2023 1:56 PM CDT) Anatomical Region Laterality Modality Other Narrative Procedure Note Jay Combs MD - 06/14/2023 1:56 PM CDT [facility] Patient Name: Melissa Peña Procedure Date: 06/14/2023 1:56 PM Date of : 1970 Admit Type: Outpatient Age: 53 Gender: Female Note Status: Finalized Attending MD: Jay Combs M.D. Procedure Date: 06/14/2023 Procedure: Colonoscopy Indications: High risk colon cancer surveillance: Personalhistory of colonic polyps, Last colonoscopy: April 2018 Providers: Jay Combs M.D., Tal Lozano CRNA (Anesthesia Staff), Phoebe Grace RN, Beto Guardado,Recruiter Specialist Referring MD: Zuhair Castrejon M.D. Medicines: Monitored [...] bowel preparation was evaluated using the BBPS (Bristol Bowel Preparation Scale) with scores of: Right [...] polyp removal. Procedure Code(s): --- Professional --- 78071, Colonoscopy, flexible; with removal of tumor(s), polyp(s), or other lesion(s) by snare technique Diagnosis Code(s): --- Professional --- Z86.010, Personal history of colonic polyps D12.3, Benign neoplasm of transverse colon (hepatic flexure or splenic flexure) D12.8, Benign neoplasm of rectum CPT copyright 2020 [employer]. All rights reserved. The codes documented in this report are preliminary and upon bowling pin setters installer reviewmay be revised to meet current compliance requirements. Electronically signed by Jay Combs MD Jay Comsb M.D. 06/14/2023 2:40:40 PM Number of Addenda: 0 Note Initiated On: 06/14/2023 1:56 PM us Jay Combs MD ENDOSCOPY PROCEDURES Final Resul t * Hepatitis panel, acute (09/29/2020 9:30 AM RELIGIOUS EDUCATION COORDINATOR) Hep A IgM Nonreactive Nonreactive [facility] Comment: Interpretive Data: If Hep A IgM Ab is reported as Equivocal, a new sample should be drawn in two weeks for testing. Current interpretive data was last revised on 19. Hep B core IgM Nonreactive Nonreactive [facility] Comment: Interpretive Data If HepB Core IgM Ab is reported as Equivocal, a new sample should be drawn in two weeks for testing. Current interpretive data was last revised on 19. Hep C Ab Nonreactive Nonreactive [facility] Comment: Interpretive Data Nonreactive: Antibodies to HCV not detected. Does NOT exclude the possibility of recent exposure to HCV. Equivocal: Equivocal for HCV antibodies. Supplemental molecular testing will be automatically performed to determine infection status in accordance with current CDC screening recommendations. Reactive: Positive for HCV antibodies. This may represent current or past HCV infection. Supplemental molecular testing will be automatically performed to determine current infection status in accordance with current CDC screening recommendations. Interpretive data was last revised on 2019. HepBsAg Nonreactive Nonreactive [facility] Blood specimen (specimen) 09/29/2020 9:30 AM RELIGIOUS EDUCATION COORDINATOR 09/29/2020 9:43 AM RELIGIOUS EDUCATION COORDINATOR Kun Mccoy MD LAB MICROBIOLOGY - GENER AL ORDERABLES Final Result [facility] [address] [place] [address] from Last 3 Months or Most Recently Relevant to Health Maintenance Insurance [facility] H[facility]/PPO Address: [address] [address] [place] [address] [facility] CHOICE PLUS [facility] H[facility]/PPO Address: [address] [address] [place] [address] [facility] HMO/PPO Address: [address] [address] [place] [address] [facility] OPEN ACCESS ANTHEM ACCESS CHOICE Advance Directives For more information, please contact: [phone] * Full Code (Latest Code Status on File) Date Activated Date Inactivated Comments 05/19/2025 7:02 AM 05/19/2025 12:29 PM * Full Code Date Activated Date Inactivated Comments 05/19/2025 7:02 AM 05/19/2025 7:02 AM * Full Code Date Activated Date Inactivated Comments 09/05/2022 4:21 PM 09/06/2022 9:30 PM * Full Code Date Activated Date Inactivated Comments 03/15/2021 5:10 PM 03/16/2021 7:08 PM * Full Code Date Activated Date Inactivated Comments 11/05/2020 11:52 AM 11/07/2020 8:11 PM Care Teams Lcac Operator Relationship Specialty Start Date End Date Roselyn Mcgrath MD [address] [place] [address] [place] [address] PCP - General Family Medicine 01/16/25 Bud Ambriz Jr., MD [address] [place] [address] Surgeon Orthopedic Surgery 01/22/18 Lexie Recinos, PT Physical Therapist Physical Therapy 02/01/18 Vicki Contreras, BIRD TENDER Sewer Tapper Physical Therapy 02/07/18 Lindsay Schilling Sewer Tapper Physical Therapy 02/13/18 Jaclyn Toledo, BIRD TENDER Sewer Tapper Physical Therapy 02/16/18 Kun Mccoy MD [address] [place] [address] Medical Oncologist/Hematologis t Hematology and Oncology 09/18/20 Lisste Diggs MD [address] [place] [address] Consulting Physician Rheumatology 09/18/20 Caleb Zacarias MD [address] [place] [address] Surgeon Orthopedic Surgery 02/22/21 Jay Combs MD [address] [place] [address] Consulting Physician Gastroenterology 02/22/21 Palak Dixon, PT Physical Therapist Physical Therapy 09/14/22
--- OUTSIDE RECORDS SUMMARY | 2025-07-05 11:55 | XMS_ITS | Clinical Summary ---
Author Organization [facility] Address [address] [place] [address] Care Team Providers Care Botany Teacher Name Role Phone Unavailable Primary Care Provider Unavailabl e Source Comments [facility],non-owned Affiliates and Associated Physician Practices is amultiple site organization consisting of ambulatory clinics and hospital sitesin [place], [place], [place] and [place]. This disclosure is being madepursuant to the Care Everywhere program and may not contain all information available regarding this patient. Last updated 18.[facility] Allergies Active Allergy Reactions Criticality Noted Date Comments Acetaminophen Other Medium Aspirin Urticaria,Shortness of Breath High 07/19/2017 Clarithromycin Other High Clindamycin Other High Hydroxychloroquine Rash Medium Reaction: Rash, Ibuprofen Shortness of Breath,Swelling High 07/19/2017 Levofloxacin Other High Medications * Be aware that medications may not be up to date on this document. Alwaysverify current medications with the patient. LISINOPRIL PO Active FUROSEMIDE PO Active Potassium (POTASSIMIN PO) Acti ve PREDNISONE PO Active PILOCARPINE HCL PO Active [...] Date Smoking Tobacco: Never Smokeless Tobacco: Never Comments Unknown Sex and Gender Information Value Date Recorded Sex Assigned at Female 10/13/2021 12:42 PM CATALYST MANUFACTURING OPERATOR Legal Sex Female 11:42 AM CDT Gender Identity Female 10/13/2021 12:42 PM CATALYST MANUFACTURING OPERATOR Sexual Orientation Straight 10/13/2021 12 :42 PM CATALYST MANUFACTURING OPERATOR Last Filed Vital Signs Vital Sign Reading Time Taken Comments Blood Pressure 122/72 08/24/2018 8:44 AM CATALYST MANUFACTURING OPERATOR Pulse 96 08/24/2018 8:44 AM CATALYST MANUFACTURING OPERATOR Temperature 36.9 C (98.5 F) 08/24/2018 8:44 AM CATALYST MANUFACTURING OPERATOR Respiratory Rate - - Oxygen Saturation 98% 08/24/2018 8:44 AM CATALYST MANUFACTURING OPERATOR Inhaled Oxygen Concentration - - Weight 136.1 kg (300 lb) 08/24/2018 8:44 AM CATALYST MANUFACTURING OPERATOR Height 165.1 cm (5' 5) 08/24/2018 8:44 AM CATALYST MANUFACTURING OPERATOR Body Mass Index 49.92 08/24/2018 8:44 AM CATALYST MANUFACTURING OPERATOR Plan of Treatment Health Maintenance Due Date Last Done Comments COLOGUARD (AGES 45-75) - COL ON CA SCREENING 1970 COLON MONITORING 1970 COLONOSCOPY - COLON CA SCREENING 1971 CT COLONOGRAPHY - COLON CA SCREENING 1970 Colorectal Cancer Screening 1970 FIT - COLON CA SCREENING 1971 FLEX SIG - COLON CA SCREENING 1971 LIPID TESTING 1971 HIV SCREENING 1986 HEPATITIS C SCREENING 05/10/1989 DTAP/TDAP/TD VACCINES (1 - Tdap) 1990 HEPATITIS B VACCINE (1 of 3 - 19+ 3-dose series) 1990 SCREENING FOR DIABETES 07/19/2017 MAMMOGRAM 04/16/2020 04/16/2018 PNEUMOCOCCAL VACCINE 50+ (1 of 1 - PCV) 2021 ZOSTER VACCINE (1 of 2) 2021 DEPRESSION SCREENING 10/02/2024 COVID-19 VACCINE (2 - 2024-2 6 season) 2025 09/18/2021 INFLUENZA VACCINE (#1) 2025 HIB VACCINE Aged Out No longer eligi ble based on patient's age to complete this topic HPV VACCINE Aged Out No longer eligi ble based on patient's age to complete this topic MENINGOCOCCAL (Group B) VACC INE SHARED DECISION-MAKING Aged Out No longer eligibl e based on patient's age to complete this topic MENINGOCOCCAL GROUPS A/C/Y/W VACCINE Aged Out No longer eligible b ased on patient's age to complete this topic Insurance [facility] Member Subscriber Plan / Payer (Ef fective for All Dates) Name:Jerri Peña Member ID:Not on file Relation to Subscriber:Spouse Name:CHEMOCEDRICK Date of :1970 (Home) Address: [address] [place] [address] Payer ID:Not on file Type:O Address: [facility] [address] [place] [address] [facility]
--- OUTSIDE RECORDS SUMMARY | 2025-07-05 11:55 | XMS_ITS | Encounter Summary ---
Author Organization [facility] Address [address] [place] [address] Care Team Providers Care Strike Planning Applications Name Role Phone Pb Leon MD, Bud Parada Unavailable [phone] Lexie Recinos PT Unavailable Unavailable Vicki Contreras ENGINEERING LIBRARIAN Unavailable Unavailable Lindsay Schilling Unavailable Unavailable Jaclyn Toledo ENGINEERING LIBRARIAN Unavailable Unavailable Kun Mccoy MD Unavailable [phone] Lisset Diggs MD Unavailable Caleb Zacarias MD Unavailable [phone] Jay Combs MD Unavailable Palak Dixon PT Unavailable Unavailable Roselyn Mcgrath MD Primary Care Provi fani Encounter Details Date Type Department Care Team (Latest Contact Info) Description 05/20/2025 Results Follow-Up [facility] Gastroenterology at [address] [place] [address] Taz Laughlin, [address] [place] [address] Surgical pathology Social History Tobacco Use Types Packs/Day Years Used Date Smoking Tobacco: Former Cigarettes Smokeless Tobacco: Never Alcohol Use Standard Drinks/Week Comments Never 0 [...] on file Legal Sex Female 6:23 PM ORNAMENTAL IRONWORKER Gender Identity Female 02/27/2020 1:04 PM CDT Sexual Orientation Not on file documented as of this encounter Miscellaneous Notes * Result Encounter Note - Bonnie Sena MA - 05/20/2025 3:10 PM CDT Pt notified documented in this encounter Plan of Treatment Not on file documented as of this encounter Visit Diagnoses Not on filedocumented in this encounter Care Teams Strike Planning Applications Relationship Specialty Start Date End Date Roselyn Mcgrath MD [address] [place] [address] [address] PCP - General Family Medicine 01/16/25 Bud Ambriz Jr., MD [address] [place] [address] Surgeon Orthopedic Surgery 01/22/18 Lexie Recinos, PT Physical Therapist Physical Therapy 02/01/18 Vicki Contreras, ENGINEERING LIBRARIAN Microwave Supervisor Physical Therapy 02/07/18 Lindsay Schilling Microwave Supervisor Physical Therapy 02/13/18 Jaclyn Toledo, ENGINEERING LIBRARIAN Microwave Supervisor Physical Therapy 02/16/18 Kun Mccoy MD [address] [place] [address] Medical Oncologist/Hematologis t Hematology and Oncology 09/18/20 Lisset Diggs MD [address] [place] [address] Consulting Physician Rheumatology 09/18/20 Caleb Zacarias MD [address] [place] [address] Surgeon Orthopedic Surgery 02/22/21 Jay Combs MD [address] [place] [address] Consulting Physician Gastroenterology 02/22/21 Palak Dixon PT Physical Therapist Physical Therapy 09/14/22 documented as of this encounter
--- OUTSIDE RECORDS SUMMARY | 2025-07-05 11:55 | XMS_ITS | Clinical Summary ---
Author Organization [facility] Address [address] [place] [id number] Care Team Providers Care Tier Over Name Role Phone Laura Castrejon MD Primary Care Provider [phone] Allergies Active Allergy Reactions Criticality Noted Date [...] on file Legal Sex Female 12:16 PM WATCH CRYSTAL GRINDER Gender Identity Not on file Sexual Orientation Not on file Last Filed Vital Signs Vital Sign Reading Time Taken Comments Blood Pressure 120/77 10/12/2020 2:19 PM WATCH CRYSTAL GRINDER Pulse 114 10/12/2020 2:19 PM WATCH CRYSTAL GRINDER Temperature 37.2 C (99 F) 10/12/2020 2:19 PM WATCH CRYSTAL GRINDER Respiratory Rate - - Oxygen Saturation 96% 10/12/2020 2:19 PM WATCH CRYSTAL GRINDER Inhaled Oxygen Concentration - - Weight 125.2 kg (276 lb) 10/12/2020 2:19 PM WATCH CRYSTAL GRINDER Height 165.1 cm (5' 5) 10/12/2020 2:19 PM WATCH CRYSTAL GRINDER Body Mass Index 45.93 10/12/2020 2:19 PM WATCH CRYSTAL GRINDER Plan of Treatment Health Maintenance Due Date Last Done Comments DIABETES ANNUAL FOOT EXAM 1989 DIABETES ANNUAL RETINAL EXAM 1989 DIABETES MICROALBUMIN ANNUAL SCREEN 1989 LDL CHOLESTEROL ANNUAL 1989 DTAP/TDAP/TD VACCINES (1 - Tdap) 1990 HEPATITIS B VACCINES (1 of 3 - 19+ 3-dose series) 05/02 HPV/Cotest (21-29) 1992 CERVICAL CANCER SCREENING 2001 HPV/Cotest (30-65) 2001 PAP SMEAR 2001 BREAST CANCER SCREENING 2011 COLORECTAL SCREENING 2016 Colorectal Cancer Screening 2016 FIT-DNA Q 3 years 2016 FIT/FOBT Q 1 year 2016 Flex Sig/CT Colonography Q 5 years 2016 DIABETES HBA1C Q 6 MONTHS 02/21/2021 08/24/2020 ZOSTER VACCINE (1 of 2) 2021 INFLUENZA VACCINE (#1) 2025 Insurance [employer] Care Teams Tier Over Relationship Specialty Start Date End Date Laura Castrejon MD [address] [place] [address] PCP - General Internal Medicine 10/12/20
--- OUTSIDE RECORDS SUMMARY | 2025-07-05 11:55 | XMS_ITS | Patient Health Record ---
Author Organization [facility] mirna Address [address] [facility] [address] [place] [address] Care Team Providers Care Processing Mgr Name Role Phone Alcides Guyzahraa Primary Care Provider Unavailabl Lisset Henao Unavailable [phone] Lisset Diggs MD Unavailable Unavailable Allergies Allergen [...] tive Results Component Value Reference Range Notes eGFR Reviewed date:09/24/2024 09:13:05 AM Interpretation: Performing Lab:[facility] , [address] [facility] [facility]. [facility] [address] Notes/Report: eGFR 85 >=60 mL/min/1.73 m2 Interpretive [...] Automated Reviewed date:09/24/2024 09:13:05 AM Interpretation: Performing Lab:[facility] , [address] [facility] [facility]. [facility] [address] Notes/Report: Neut Abs 1.7 1.5-6.5 K/cumm ImmGran Abs 0.0 0.0-0.1 K/cumm Lymphocyte Abs 0.6 0.8-3.3 K/cumm Griggs Abs 0.2 0.2-0.8 K/cumm Eos Abs 0.0 [...] Interpretive Data was last revised on 2018. Griggs Pct 9.3 Interpretive Data Percent cell count [...] was last revised on 2018. eGFR Reviewed date:12/25/2024 08:24:14 AM Interpretation: Performing Lab:[facility] , [address] [place] [address]. [place] [address] Notes/Report: eGFR 82 >=60 mL/min/1.73 m2 Interpretive Data Reference Interval [...] was last reviewed 2021. Differential Automated Reviewed date:12/25/2024 08:24:14 AM Interpretation: Performing Lab:[facility] , [address] [place] [address]. [facility] [address] Notes/Report: Neut Abs 1.2 1.5-6.5 K/cumm ImmGran Abs 0.0 0.0-0.1 K/cumm Lymphocyte Abs 0.4 0.8-3.3 K/cumm Griggs Abs 0.2 0.2-0.8 K/cumm Eos Abs 0.0 0.0-0.5 K/cumm Baso Abs 0.0 0.0-0.1 K/cumm Neut Pct 67.8 Interpretive Data Percent cell count reference ranges are not reported, since discordance with absolute values may lead to misinterpretation of CBC data. Current Interpretive Data was last revised on 2018. ImmGran Pct 0.0 Interpretive Data Percent cell count reference ranges are not reported, since discordance with absolute values may lead to misinterpretation of CBC data. Current Interpretive Data was last revised on 2018. Lymph Pct 22.4 Interpretive Data Percent cell count reference ranges are not reported, since discordance with absolute values may lead to misinterpretation of CBC data. Current Interpretive Data was last revised on 2018. Griggs Pct 9.8 Interpretive Data Percent cell count reference ranges [...] was last revised on 2018. eGFR Reviewed date:03/18/2025 04:51:23 PM Interpretation: Performing Lab:[facility] , [address] [facility] [facility]. [place] [address] Notes/Report: eGFR 61 >=60 mL/min/1.73 m2 Interpretive Data Reference Interval [...] was last reviewed 2021. Differential Automated Reviewed date:03/18/2025 04:51:22 PM Interpretation: Performing Lab:[facility] , [facility] [facility]. [place] [address] Notes/Report: Neut Abs 1.34 1.50-6.50 K/cumm ImmGran Abs 0.01 0.00-0.10 K/cumm Lymphocyte Abs 0.43 0.80-3.30 K/cumm Griggs Abs 0.19 0.20-0.80 K/cumm Eos Abs 0.00 0.00-0.50 K/cumm Baso Abs 0.01 0.00-0.10 K/cumm Neut Pct 67.7 Interpretive Data Percent cell count reference ranges are not reported, since discordance with absolute values may lead to misinterpretation of CBC data. Current Interpretive Data was last revised on 2018. ImmGran Pct 0.5 Interpretive Data Percent cell count reference ranges are not reported, since discordance with absolute values may lead to misinterpretation of CBC data. Current Interpretive Data was last revised on 2018. Lymph Pct 21.7 Interpretive Data Percent cell count reference ranges are not reported, since discordance with absolute values may lead to misinterpretation of CBC data. Current Interpretive Data was last revised on 2018. Griggs Pct 9.6 Interpretive Data Percent cell count reference ranges [...] was last revised on 2018. Baso Pct 0.5 Interpretive Data Percent cell count reference ranges are not reported, since discordance with absolute values may lead to misinterpretation of CBC data. Current Interpretive Data was last revised on 2018. Comprehensive metabolic pane l (CMP) Reviewed date:03/18/2025 04:51:13 PM Interpretation:Lab Result Generalized Performing Lab:[facility] , [facility]. [facility] [address] Notes/Report: Sodium 142 135-145 mmol/L Plasma Potassium 3.7 3.3-4.9 mmol/L Chloride 110 97-110 mmol/L Total CO2 19 22-32 mmol/L Anion Gap 13 2-15 mmol/L BUN 16 6-25 mg/dL Creatinine 1.08 0.60-1.10 mg/dL Glucose 90 70-199 mg/dL Interpretive [...] data was last revised 2022. Total Calcium 9.0 8.5-10.3 mg/dL Total Bilirubin 0.2 0.1-1.2 mg/dL Plasma Total Protein 7.2 6.5-8.5 g/dL Albumin 3.9 3.5-5.0 g/dL Alkaline Phosphatase 100 40-130 Units/L ALT 20 7-45 Units/L AST 19 10-45 Units/L CBC w auto diff Reviewed date:03/18/2025 04:51:13 PM Interpretation:Lab Result Generalized Performing Lab:[facility] , [address] [place] [address]. [place] [address] Notes/Report: WBC 1.98 3.80-9.90 K/cumm Hgb 12.8 11.9-15.5 g/dL Hct 42.7 35.6-45.5 % Platelet Ct 132 150-400 K/cumm MPV 9.7 9.1-12.3 fL RBC 4.84 3.90-5.20 M/cumm MCV 88.2 81.3-96.4 fL MCH 26.4 27.1-33.3 pg MCHC 30.0 32.3-35.7 g/dL RDW CV 15.6 11.1-14.9 % RDW SD 50.3 35.7-48.1 fL NRBC Abs Auto 0.00 0.00-0.01 K/cumm Comprehensive metabolic pane l (CMP) Reviewed date:09/24/2024 09:13:06 AM Interpretation: Performing Lab:[facility] , [facility]. [place] [address] Notes/Report: Sodium 141 135-145 mmol/L Plasma Potassium [...] 20 7-45 Units/L AST 17 10-45 Units/L CBC w auto diff Reviewed date:09/24/2024 09:13:05 AM Interpretation: Performing Lab:[facility] , [address] [place] [address]. [facility] [address] Notes/Report: WBC 2.6 3.8-9.9 K/cumm Hgb 12.9 11.9-15.5 g/dL Hct 42.7 35.6-45.5 % Platelet Ct 145 150-400 K/cumm MPV 10.0 9.1-12.3 fL RBC 4.61 3.90-5.20 M/cumm MCV 92.6 81.3-96.4 fL MCH 28.0 27.1-33.3 pg MCHC 30.2 32.3-35.7 g/dL RDW CV 14.9 11.1-14.9 % RDW SD 50.1 35.7-48.1 fL NRBC Abs Auto 0.00 0.00-0.01 K/cumm Comprehensive metabolic pane l (CMP) Reviewed date:12/25/2024 08:24:14 AM Interpretation: Performing Lab:[facility] , [address] [place] [address]. [place] [address] Notes/Report: Sodium 142 135-145 mmol/L Plasma Potassium 3.0 3.3-4.9 mmol/L Chloride 110 97-110 mmol/L Total CO2 17 22-32 mmol/L Anion Gap 15 2-15 mmol/L BUN 8 6-25 mg/dL Creatinine 0.85 0.60-1.10 mg/dL Glucose 91 70-199 mg/dL Interpretive Data Fasting glucose >/= [...] data was last revised 2022. Total Calcium 8.9 8.5-10.3 mg/dL Total Bilirubin 0.2 0.1-1.2 mg/dL Plasma Total Protein 7.4 6.5-8.5 g/dL Albumin 4.0 3.5-5.0 g/dL Alkaline Phosphatase 101 40-130 Units/L ALT 21 7-45 Units/L AST 16 10-45 Units/L CBC w auto diff Reviewed date:12/25/2024 08:24:14 AM Interpretation: Performing Lab:[facility] , [address] [place] [address]. [place] [address] Notes/Report: WBC 1.7 3.8-9.9 K/cumm Hgb 12.6 11.9-15.5 g/dL Hct 41.8 35.6-45.5 % Platelet Ct 142 150-400 K/cumm MPV 10.6 9.1-12.3 fL RBC 4.69 3.90-5.20 M/cumm MCV 89.1 81.3-96.4 fL MCH 26.9 27.1-33.3 pg MCHC 30.1 32.3-35.7 g/dL RDW CV 15.5 11.1-14.9 % RDW SD 50.5 35.7-48.1 fL NRBC Abs Auto 0.00 0.00-0.01 K/cumm Reason For Referral Reason 01.30.2025 Anandsamikasey Reza [address] [facility] approved Diagnosis 1 Other rheumatoid art hritis with rheumatoid factor of multiple sites (M05.89) Referral Organization [facility] Referring Provider First Name Lisset Referring Provider Last Name Dontae Referring Provider Speciality Rheumatolo gy Referred Organization [facility] Referred Provider Lisset Diggs Ref[facility] [address] [facility] [facility] [address],[place], [place],[address] Referred Provider Specialty Rheumatology Procedure 1 ABATACEPT INJECTION (J0129) Referral Priority Routine Medications Medication SIG (Take, Route, Frequency, Duration) Notes Start Date End Date Status Vitamin D3 1000 UNIT take 1 tablet weekly Oral Active Phentermine HCl 37.5 MG take 1 tablet (37.5 mg) by oral route once daily before breakfast Oral 1 Active Cevimeline HCl 30 MG 1 capsule Orally Three times a day; Duration: 30 days 04/01/2025 Active Dicyclomine HCl 20 MG take 1 tablet (20 mg) by oral route 3 times per day Oral 3 Active Lisinopril 20 MG TAKE 2 TABLETS(40 MG) BY MOUTH DAILY; Duration: 90 Active Emgality 120 MG/ML inject 1 milliliter (120 mg) by subcutaneous route once a month in the abdomen, thigh, outer upper arm, or buttocks Subcutaneous Active Pilocarpine HCl 7.5 MG 1 Three times a day; Duration: 90 days diagnosis: Sjogren's disease, ICD-10: M35.00 Active FERROUS SULFATE 325MG (5GR) TABS 325 mg (65 mg iron) TAKE 1 TABLET(325 MG) BY MOUTH TWICE DAILY *Reorder from [employer] for eRx and Interaction Alerts* 06/09/2023 Active CEVIMELINE 30MG CAPSULES 30 mg TAKE 1 CAPSULE(30 MG) BY MOUTH THREE TIMES DAILY *Reorder from [employer] for eRx and Interaction Alerts* 04/21/2023 Active Levothyroxine Sodium 25 MCG take 1 tablet (25 mcg) by oral route once daily Oral 1 Active Cyclobenzaprine HCl 10 MG 1 Oral Once a day; Duration: 30 days Active Levothyroxine Sodium 200 MCG take 1 tablet (200 mcg) by oral route once daily Oral 1 Active Cevimeline HCl 30 MG TAKE 1 CAPSULE BY MOUTH THREE TIMES DAILY; Duration: 30 Active metFORMIN HCl 1000 MG take 1 tablet (1,000 mg) by oral route 2 times per day with morning and evening meals Oral 2 Active traMADol HCl 50 MG TAKE 1 TABLET BY MOUTH EVERY 6 HOURS NEEDED; Duration: 30 06/08/2025 Active ZyrTEC Allergy 10 MG take 1 capsule by oral route once Oral 1 Active Famotidine 40 MG take 1 tablet (40 mg) by oral route once daily at bedtime Oral 1 Active Nurtec 75 MG prn Oral Active Vitamin D (Ergocalciferol) 1.25 MG (04383 UT) TAKE 1 CAPSULE BY MOUTH WEEKLY; Duration: 28 Active Orencia - monthly - *Pick strength-form from [employer] for eRX* Active predniSONE 2.5 MG TAKE 3 TABLETS(7.5 MG) BY MOUTH DAILY; Duration: 30 Active Sertraline HCl 100 MG TAKE 1 TABLET(100 MG) BY MOUTH EVERY DAY; Duration: 90 Active Problems Problem Type SNOMED Code ICD Code Onset Dates Problem Status W/U Status Risk Notes Problem Rheumatoid arthritis (89749468) 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) Active confirmed Problem Rheumatoid arthritis (61896576) Rheumatoid arthritis without rheumatoid factor, unspecified site (M06.00) Active confirmed Problem Rheumatoid arthritis (51478635) Rheumatoid arthritis without rheumatoid factor, multiple sites (M06.09) Active confirmed Problem Lupus (174159258) Lupus (M32.9) Active confirmed Problem Primary Sjogren's syndrome (754683749) Primary Sjogren's syndrome (M35.00) Active confirmed Vital Signs Heart Rate 83 /min 06/10/2025 Temperature 98.0 degrees Fahrenheit 06/10/2025 Height-cm 165.1 cm 06/10/2025 Blood pressure diastolic 71 mm Hg 06/10/2025 Weight-kg 117.39 kg 06/10/2025 Height 65 in 06/10/2025 Blood pressure systolic 113 mm Hg 06/10/2025 Weight 258.8 lbs 06/10/2025 BMI 43.06 kg/m2 06/10/2025 Encounters Encounter Location Date Provider Diagnosis [facility] [address] [place] [address] 07/29/2024 Lisset Du Other rheumatoid arthritis with rheumatoid factor of multiple sites M05.89 [facility] [address] [place] [address] 08/26/2024 Lisset Du Other rheumatoid arthritis with rheumatoid factor of multiple sites M05.89 [facility] [address] [place] [address] 08/26/2024 Lisset Du Other rheumatoid arthritis with rheumatoid factor of multiple sites M05.89 ; Primary Sjogren's syndrome M35.00 ; Lupus M32.9 ; High risk medication use Z79.899 and Screening for osteoporosis Z13.820 [facility] [address] [place] [address] 09/23/2024 Lisset Du Other rheumatoid arthritis with rheumatoid factor of multiple sites M05.89 [facility] [address], [place] [address] 10/29/2024 Lisset Du Other rheumatoid arthritis with rheumatoid factor of multiple sites M05.89 [facility] [address], [place] [address] 11/26/2024 Lisset Du Other rheumatoid arthritis with rheumatoid factor of multiple sites M05.89 [facility] [address] [place] [address] 11/26/2024 Lisset Du Other rheumatoid arthritis with rheumatoid factor of multiple sites M05.89 ; Primary Sjogren's syndrome M35.00 ; Lupus M32.9 ; High risk medication use Z79.899 and Screening for osteoporosis Z13.820 [facility] [address] [place] [address] 12/24/2024 Lisset Du Other rheumatoid arthritis with rheumatoid factor of multiple sites M05.89 [facility] [address] [place] [address] 01/21/2025 Lisset Du Other rheumatoid arthritis with rheumatoid factor of multiple sites M05.89 [facility] [address] [place] [address] 02/18/2025 Lisset Du Other rheumatoid arthritis with rheumatoid factor of multiple sites M05.89 [facility] [address] [place] [address] 02/18/2025 Lisset Du Other rheumatoid arthritis with rheumatoid factor of multiple sites M05.89 ; Primary Sjogren's syndrome M35.00 ; Lupus M32.9 ; High risk medication use Z79.899 and Screening for osteoporosis Z13.820 [facility] [address] [place] [address] 03/18/2025 Lisset Du Other rheumatoid arthritis with rheumatoid factor of multiple sites M05.89 [facility] [address] [place] [address] 04/15/2025 Lisset Du Other rheumatoid arthritis with rheumatoid factor of multiple sites M05.89 [facility] [address] [place] [address] 05/13/2025 Lisset Du Other rheumatoid arthritis with rheumatoid factor of multiple sites M05.89 [facility] [address] [place] [address] 06/10/2025 Lisset Du Other rheumatoid arthritis with rheumatoid factor of multiple sites M05.89 [facility] [address] [place] [address] 06/30/[address] [facility] [address] [place] [address] 07/30/[address] [facility] [address] [place] [address] 08/14/[address] [facility] [address] [place] [address] 10/24/[address] [facility] [address] [place] [address] 11/04/[address] [facility] [address] [place] [address] 12/24/[address] [facility] [address] [place] [address] 12/25/[address] [facility] [address] [place] [address] 02/04/2025 Lisset [facility] [address] [place] [address] [facility] [address] [place] [address] 03/10/2025 Lisset [facility] [address] [place] [address] 04/01/2025 Lisset Diggs Assessments Encounter Date Diagnosis (ICD Code) Assessment Notes Treatment Notes Treatment Clinical Notes Section Notes 07/29/2024 Other rheumatoid arthritis with rheumatoid factor of multiple sites (ICD-10 - M05.89) 08/26/2024 Other rheumatoid arthritis with rheumatoid factor of multiple sites (ICD-10 - M05.89) 09/23/2024 Other rheumatoid arthritis with rheumatoid factor of multiple sites (ICD-10 - M05.89) 01/21/2025 Other rheumatoid arthritis with rheumatoid factor of multiple sites (ICD-10 - M05.89) 02/18/2025 Other rheumatoid arthritis with rheumatoid factor of multiple sites (ICD-10 - M05.89) 03/18/2025 Other rheumatoid arthritis with rheumatoid factor of multiple sites (ICD-10 - M05.89) 04/15/2025 Other rheumatoid arthritis with rheumatoid factor of multiple sites (ICD-10 - M05.89) 05/13/2025 Other rheumatoid arthritis with rheumatoid factor of multiple sites (ICD-10 - M05.89) 06/10/2025 Other rheumatoid arthritis with rheumatoid factor of multiple sites (ICD-10 - M05.89) 02/18/2025 Other rheumatoid arthritis with rheumatoid factor of multiple sites (ICD-10 - M05.89) orncia helping a lot, decrease predniusone to 2.5mg/day, advised to schedule DEXA 12/24/2024 Other rheumatoid arthritis with rheumatoid factor of multiple sites (ICD-10 - M05.89) 11/26/2024 Other rheumatoid arthritis with rheumatoid factor of multiple sites (ICD-10 - M05.89) try thumb splinting, refill tramadol, orencia helping, will continue, decrease prednisone to 5mg/day after today's infusion 11/26/2024 Other rheumatoid arthritis with rheumatoid factor of multiple sites (ICD-10 - M05.89) 10/29/2024 Other rheumatoid arthritis with rheumatoid factor of multiple sites (ICD-10 - M05.89) 08/26/2024 Other rheumatoid arthritis with rheumatoid factor of multiple sites (ICD-10 - M05.89) mildly symptomatic, , orencia helping, will continue, decrease prednisone to 5mg/day after today's ionfusion 11/26/2024 Primary Sjogren's syndrome (ICD-10 - M35.00) try thumb splinting, refill tramadol, orencia helping, will continue, decrease prednisone to 5mg/day after today's infusion 08/26/2024 Primary Sjogren's syndrome (ICD-10 - M35.00) mildly symptomatic, , orencia helping, will continue, decrease prednisone to 5mg/day after today's ionfusion 02/18/2025 Primary Sjogren's syndrome (ICD-10 - M35.00) orncia helping a lot, decrease predniusone to 2.5mg/day, advised to schedule DEXA 02/18/2025 Lupus (ICD-10 - M32.9) orncia helping a lot, decrease predniusone to 2.5mg/day, advised to schedule DEXA 11/26/2024 Lupus (ICD-10 - M32.9) try thumb splinting, refill tramadol, orencia helping, will continue, decrease prednisone to 5mg/day after today's infusion 08/26/2024 Lupus (ICD-10 - M32.9) mildly symptomatic, , orencia helping, will continue, decrease prednisone to 5mg/day after today's ionfusion 11/26/2024 High risk medication use (ICD-10 - Z79.899) try thumb splinting, refill tramadol, orencia helping, will continue, decrease prednisone to 5mg/day after today's infusion 08/26/2024 High risk medication use (ICD-10 - Z79.899) mildly symptomatic, , orencia helping, will continue, decrease prednisone to 5mg/day after today's ionfusion 02/18/2025 High risk medication use (ICD-10 - Z79.899) orncia helping a lot, decrease predniusone to 2.5mg/day, advised to schedule DEXA 02/18/2025 Screening for osteoporosis (ICD-10 - Z13.820) orncia helping a lot, decrease predniusone to 2.5mg/day, advised to schedule DEXA 08/26/2024 Screening for osteoporosis (ICD-10 - Z13.820) mildly symptomatic, , orencia helping, will continue, decrease prednisone to 5mg/day after today's ionfusion 11/26/2024 Screening for osteoporosis (ICD-10 - Z13.820) try thumb splinting, refill tramadol, orencia helping, will continue, decrease prednisone to 5mg/day after today's infusion Plan Of Treatment Pending Test Test Name Order Date DEXA Hip and Spine 11/28/2023 CBC With Differential/Platelet CMP - Comp. Metabolic Panel (14) 024 Next Appt Details Provider Name:Lisset Dontae, 07/08 08:00:00 AM, [address], [place], [address], Provider Name:Lisset Dontae, 07/08 08:00:00 AM, [address], [place], [address], Provider Name:Lisset Dontae, 08/05 10:30:00 AM, [address], [place], [address], Provider Name:Lisset Diggs, 09/02 08:00:00 AM, [address], [place], [address], Insurance Providers Payer Name Payer Address Payer Phone Subscriber Number Group Number Insured Name Patient Relationship to Insured Coverage Start Date Coverage End Date [employer] [address] [place] [address] [id number] Jerri Peña Self - patient is the insured [employer] [address] [place] [address] [id number] Jerri Peña Self - patient is the insured Medical (General) History Medical History History ICD Code Leukopenia; Sjogrens syndrome;
--- OUTSIDE RECORDS SUMMARY | 2025-07-05 11:55 | XMS_ITS | Clinical Summary ---
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 Provider, None Primary Care [...] Other reaction(s): Blisters Other Hives Medium 11/29/2018 [facility] sauce-migraines, swelling of throat Medications Cetirizine HCl [...] A ctive Cholecalciferol (Vitamin D3) 1.25 MG (42013 UT) Capsule TAKE 1 CAPSULE BY MOUTH [...] MM Misc USE UTD 0 Active Lancets (ZannelTouch Delica Plus [id number]) Misc USE BID 0 Active abatacept (ORENCIA) [...] Comments Blood Pressure 130/80 10/03/2021 2:48 PM JOINT CUTTER Pulse 98 10/03/2021 2:48 PM JOINT CUTTER Temperature 36.4 C (97.5 F) 10/03/2021 2:48 PM JOINT CUTTER Respiratory Rate 20 10/03/2021 2:48 PM JOINT CUTTER Oxygen Saturation 99% 10/03/2021 2:48 PM JOINT CUTTER Inhaled Oxygen Concentration - - Weight 122.9 kg (271 lb) 10/03/2021 2:48 PM JOINT CUTTER Height 165.1 cm (5' 5) 10/03/2021 2:48 PM JOINT CUTTER Body Mass Index 45.1 10/03/2021 2:48 PM JOINT CUTTER Plan of Treatment Health Maintenance Due Date Last Done Comments Hepatitis C Virus (HCV) Screening 1971 TdaP Immunization 1971 Hepatitis B Immunization (1 of 3 - 19+ 3-dose series) 1990 Pap Smear 1992 Cervical Cancer Screening (CCS) 2001 HPV/Cotest 2001 Cologuard 2016 Colonoscopy 2016 Colorectal Cancer Screening 2016 Immunochemical Fecal Occult Blood 2016 Pneumococcal Immunization (5 0+ years) (1 of 1 - PCV) 2021 Zoster Immunization (1 of 2) 2021 Influenza Immunization (#1) 2025 08/02/2022 SARS-COV-2 Immunization ( - 2024- season) 2025 09/18/2021, 02/02/2021, 01/05/2021 Respiratory Syncytial Virus (RSV) Immunization (Adult) (1 - 1-dose 75+ series) 2046 Human Papillomavirus (HPV) Immunization Aged Out No longer eligible b ased on patient's age to complete this topic Meningococcal Immunization (ACWY) Aged Out No longer eligible b ased on patient's age to complete this topic Rotavirus Immunization Aged Out No lo nger eligible based on patient's age to complete this topic Insurance Care Teams 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
[2025-07-05 12:02] VITALS: BP 123/77; PULSE 94; RESP 16; TEMP 36.4; O2SAT 100
--- NOTE | 2025-07-05 12:33 | ED.FALL ---
HPI - Fall General Chief Complaint: Extremity Injury, Upper Stated Complaint: Right arm injury Time Seen by Provider: 07/05/25 12:00 Source: patient and RN notes reviewed Mode of arrival: ambulatory Limitations: no limitations History of Present Illness HPI Narrative: 55-year-old female presents Express Care complaining of fall last night. Patient said she was climbing down from a chair because she could not get on the chair when her shoe got caught on the leg of the chair and she fell and on her right side. Patient denies any loss of consciousness, hitting her head, neck pain, or back pain. Patient has complain of right elbow pain, right and left hip pain and right ankle bruising. Patient denies any pain in her right ankle. Patient has a history of a hip replacement. Patient reports present swelling to his right ankle. Patient denies taking any blood thinners. Related Data Home Medications ?Medication ?Instructions ?Recorded ?Confirmed ?Last Taken ?Type cevimeline 30 mg capsule 30 mg PO DAILY 06/13/21 10/25/24 Unknown History cholecalciferol (vitamin D3) 1,250 1,250 mcg PO DAILY 06/13/21 01/26/22 Unknown History mcg (50,000 unit) capsule dicyclomine 20 mg tablet 20 mg PO BID 06/13/21 01/26/22 Unknown History famotidine 40 mg tablet 40 mg PO DAILY 06/13/21 01/26/22 Unknown History ferrous sulfate 325 mg (65 mg 325 mg PO DAILY 06/13/21 01/26/22 Unknown History iron) tablet (FeroSul) levothyroxine 175 mcg tablet 175 mcg PO DAILY 06/13/21 10/25/24 Unknown History oxybutynin chloride 5 mg tablet 5 mg PO BID 06/13/21 01/26/22 Unknown History pilocarpine HCl 7.5 mg tablet 7.5 mg PO DAILY 06/13/21 10/25/24 Unknown History pravastatin 20 mg tablet 20 mg PO DAILY 06/13/21 01/26/22 Unknown History sertraline 100 mg tablet 100 mg PO DAILY 06/13/21 10/25/24 Unknown History tramadol 50 mg tablet 50 mg PO Q6-8H PRN Pain 06/13/21 10/25/24 Unknown History abatacept 125 mg/mL subcutaneous 250 mg subcut WEEKLY 10/21/21 01/26/22 Unknown History syringe (Orencia) prednisone 2.5 mg tablet 2.5 mg PO TID 01/26/22 10/25/24 Unknown History acetazolamide 250 mg tablet mg 10/25/24 Unknown History ergocalciferol (vitamin D2) 1,250 10/25/24 Unknown History mcg (50,000 unit) capsule lisinopril 20 mg tablet mg 10/25/24 Unknown History metformin 500 mg tablet mg 10/25/24 Unknown History pravastatin 40 mg tablet mg 10/25/24 Unknown History tirzepatide 5 mg/0.5 mL mg subcut 10/25/24 Unknown History subcutaneous pen injector (Mounjaro) topiramate 25 mg capsule mg PO 10/25/24 Unknown History sprinkle,extended release 24 hr topiramate 50 mg tablet mg 10/25/24 Unknown History Allergies Allergy/AdvReac Type Severity Reaction Status Date / Time adalimumab (From Humira) Allergy Hives Verified 01/26/22 13:27 clarithromycin Allergy Other Verified 01/26/22 13:27 clindamycin Allergy Other Verified 01/26/22 13:27 hydroxychloroquine Allergy Rash Verified 01/26/22 13:27 ibuprofen Allergy Unknown Verified 07/05/25 12:06 infliximab (From Remicade) Allergy Anaphylaxis Verified 01/26/22 13:27 levofloxacin Allergy Rash Verified 01/26/22 13:27 Sulfa (Sulfonamide Allergy Other Verified 01/26/22 13:27 Antibiotics) Review of Systems Review of Systems: CONSTITUTIONAL: Denies fever, chills, or sweats. EYES: Denies visual changes, redness, or discharge. ENT: Denies rhinorrhea, congestion, sore throat, or otalgia. CARDIOVASCULAR: Denies chest pain, palpitations, or edema. RESPIRATORY: Denies cough or dyspnea. GASTROINTESTINAL: Denies abdominal pain, nausea, vomiting, or diarrhea. GENITOURINARY: Denies dysuria or hematuria. SKIN: Denies rash or itching. MUSCULOSKELETAL: Denies back pain, joint pain, or myalgia. Positive for right elbow and right hip pain. NEUROLOGIC: Denies headache, numbness, or weakness. PSYCHIATRIC: Denies anxiety or depression. All other systems reviewed are negative, except as documented in HPI. [facility] Past Medical History Medical History Hyperlipidemia GERD (gastroesophageal reflux disease) Hypertension Diabetes Hypothyroid Sjogrens syndrome Arthritis Social History Social History Smoking status: Former smoker Additional smoking assessment comments: quit 20 years ago Alcohol intake: current Alcohol use details: rare social Substance use type: does not use Gender identity (if verbalized by the patient): Female Comments At the time of my signature, I reviewed and agree with the nursing past medical, surgical, social, and family history. There is no relevant family history pertinent to the patient complaint. Exam Narrative: GENERAL: This is a well-nourished, well-developed adult, in no apparent distress. They are non ill-appearing, nontoxic appearing. HEAD: normocephalic, atraumatic. EYES: Sclera clear/white. Conjunctiva normal. Vision is grossly intact. Extraocular movements intact EARS: External ears normal Hearing grossly intact. NOSE: External nose normal THROAT: Mucous membranes moist, NECK: Neck supple, CARDIOVASCULAR: Regular rate and rhythm RESPIRATORY: Respiratory rate normal, respiratory effort nonlabored, no respiratory distress SKIN: warm, Dry, intact with no suspicious lesions or rash, good texture and turgor. NEURO: awake, alert, and oriented to person, place and time. There were no obvious focal neurologic abnormalities. EXTREMITIES: Right arm: No bony tenderness to right shoulder, right wrist or hand. Right elbow is tender to palpate, there is lateral bruising and swelling. There is limited range of motion due to pain. Radial pulse 2 +and palpable. Capillary refill less than 2 seconds. Normal sensation. Neurovascular status intact distal injury. Radial, ulnar, median, nerve distribution intact. Patient wiggle her fingers. Patient can make a fist, thumbs-up sign, stop sign, okay sign. Pelvis: No shortening or rotation. Mild tenderness to palpation to the lateral hip, no tenderness to left hip. No pelvic instability. Mild pain through full range of motion of hip this. Right ankle with bruising, no swelling, no bony tenderness, right ankle nontender through full range of motion. Neurovascular status intact distal injury. Sensation. Course Course Emergency Course: Portions of this record may have been created with voice recognition software Level of Care: Express Care Visit Vital Signs Vital signs: Vital Signs Temperature 97.6 F 07/05/25 12:02 Pulse Rate 94 07/05/25 12:02 Respiratory Rate 16 07/05/25 12:02 Blood Pressure 123/77 07/05/25 12:02 Pulse Oximetry 100 07/05/25 12:02 Oxygen Delivery Room Air 07/05/25 12:02 Temperature 97.6 F 07/05/25 12:02 Pulse Rate 94 07/05/25 12:02 Respiratory Rate 16 07/05/25 12:02 Blood Pressure 123/77 07/05/25 12:02 Pulse Oximetry 100 07/05/25 12:02 Oxygen Delivery Room Air 07/05/25 12:02 Reviewed MDM - Fall MDM Narrative Medical decision making narrative: X-ray pelvis, left hip were negative for any fracture or acute findings. 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 Images of left hip were placed on right hip, additional right hip x-rays are negative for any fractures or acute findings. Right elbow was negative for any fracture or acute findings. Patient has a right elbow contusion. There is mild bruising to patient's right ankle, no bony tenderness, deformity, with normal range of motion, no indication for imaging. Advised patient to follow-up with orthopedist who did her surgeon about her right hip findings. Patient given Vincenzo wrap for elbow. Discussed rice therapy and supportive therapy. Discussed physical exam findings. Advised supportive measures and signs/symptoms to go to the ER. Pt is appropriate for outpt treatment and f/u. Differential Diagnosis Differential diagnosis: Likely other (Elbow fracture, elbow contusion, elbow sprain, shoulder for sprain, hip fracture, hip sprain, ankle fracture, ankle sprain, ankle contusion) Imaging Data Radiologist's impression: ITS Impressions Hip X-Ray 07/05/25 14:13 Impression: No acute fracture or malalignment. HIP R X-RAY 2V AP PELVIS Findings/impression: 1. Nodes that provided indication states right hip pain but images are of left hip. 2. No acute findings left hip. 3. Left hip prosthesis intact without periprosthetic lucency or fracture. 4. No acute pelvic fracture noted. 5. 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 XR ELBOW 3 V R Findings/impression: 1. No fracture or dislocation right elbow. Critical Care Time Critical Care Time Critical Care Time: No Discharge Plan Discharge Clinical Impression: Fall, Acute hip pain, bilateral, Contusion of right elbow, Protrusio acetabuli Patient Disposition: Home Condition: Stable Instructions: Hip Pain (ED), Hematoma (ED), Hip Impingement (ED) Additional Instructions: The x-ray of her right hip, left hip, pelvis are negative for any fractures or acute findings. Hip replacement hardware appears intact. You will be contacted further on the rest of your right hip images if there is any concerns for fractures or any other findings. There is an incidental finding to your right hip replacement that reveals a protrusio acetabuli, this may lead to hip arthritis and impingement, please follow-up with your orthopedist who did your surgery for evaluation and management. X-ray of your right elbow was negative for any fractures or acute findings, is likely a elbow contusion. Rest and elevate the leg; bear weight as tolerated Rest and elevate the right arm, use as tolerated. Apply ice 15-20 minute intervals several times a day Keep it wrapped with VINCENZO or use an elbow wrap You may take ibuprofen 600 mg to 800 mg every 6-8 hours. Do not exceed more than 800 mg of ibuprofen per dose. Do not exceed more than 3200 mg ibuprofen in a day. You may take up to 1000 mg Tylenol every 6-8 hours. Do not exceed 1000 mg per dose, do exceed more than 4000 mg of Tylenol in a day. Follow up with your primary care provider as needed in 1-2 weeks Go to the ER if you develops worsening symptoms, chest pain, shortness of breath, headaches, vision changes, nausea, vomiting, one-sided weakness, confusion, slurred speech, or any serious concerns Patient Language: Sami Prescriptions: No Action Orencia 125 mg/mL Syringe 250 mg SUBCUT WEEKLY prednisone 2.5 mg tablet 2.5 mg PO TID albuterol sulfate 90 mcg/actuation HFA aerosol inhaler 2 puff INHALATION QID PRN (Reason: shortness of breath or wheezing) Qty: 8.5 0RF metformin 500 mg tablet acetazolamide 250 mg tablet pravastatin 40 mg tablet lisinopril 20 mg tablet ergocalciferol (vitamin D2) 1,250 mcg (50,000 unit) capsule topiramate 50 mg tablet topiramate 25 mg capsule,sprinkle,ER 24hr PO Mounjaro 5 mg/0.5 mL pen injector SUBCUT levothyroxine 175 mcg tablet 175 mcg PO DAILY famotidine 40 mg tablet 40 mg PO DAILY sertraline 100 mg tablet 100 mg PO DAILY tramadol 50 mg tablet 50 mg PO Q6-8H PRN (Reason: Pain) dicyclomine 20 mg tablet 20 mg PO BID ferrous sulfate [FeroSul] 325 mg (65 mg iron) tablet 325 mg PO DAILY cevimeline 30 mg capsule 30 mg PO DAILY pravastatin 20 mg tablet 20 mg PO DAILY oxybutynin chloride 5 mg tablet 5 mg PO BID pilocarpine HCl 7.5 mg tablet 7.5 mg PO DAILY cholecalciferol (vitamin D3) 1,250 mcg (50,000 unit) capsule 1,250 mcg PO DAILY Follow-up/Referrals: PHYSICIAN NOT ON STAFF,NONSTAFF [Primary Care Provider] Time of Disposition: 14:05
== END 2025-07-05 14:16 | disposition home or self-care (01) ==
DX: M25.552 Pain in left hip (principal); M25.551 Pain in right hip; S50.01XA Contusion of right elbow, initial encounter; W07.XXXA Fall from chair, initial encounter; M24.7 Protrusio acetabuli; I10 Essential (primary) hypertension; E11.9 Type 2 diabetes mellitus without complications; Z79.84 Long term (current) use of oral hypoglycemic drugs; Z79.85 Long-term (current) use of injectable non-insulin antidiabetic drugs; E03.9 Hypothyroidism, unspecified; E78.5 Hyperlipidemia, unspecified; M19.90 Unspecified osteoarthritis, unspecified site; M35.00 Sjogren syndrome, unspecified; K21.9 Gastro-esophageal reflux disease without esophagitis; Z87.891 Personal history of nicotine dependence; Z96.643 Presence of artificial hip joint, bilateral
CPT/HCPCS: 73080; 73502; 99214; G0463